=== PATIENT | female | born 1990 | race Caucasian/White ===

== ENCOUNTER 2025-07-05 19:06 | Inpatient (IN) | payer MEDICAID, SELFPAY ==
[2025-07-05 19:07] VITALS: BP 114/90; PULSE 103; RESP 16; TEMP 36.4; O2SAT 98; BMI 28.1
--- NOTE | 2025-07-05 19:23 | HP.PCM.HOS_ITS ---
HPI - General General Date of Admission: 07/05/25 Date of Service: 07/05/25 Chief Complaint: Acute Opiate Withdrawal HPI Narrative The patient is a 34 y/o F w/ PMHx: Opiate abuse (heroin, IV, approximately 1/2 g daily, last usage early a.m. on day of presentation), methamphetamine abuse (normally smoked, intermittent) with ongoing polysubstance abuse for approximately 10 years using intermittently, Anxiety and Depression, Tobacco use, Hx hepatitis C reportedly cleared status post antiviral therapy treatment who presents to the [facility] ED on 07/05/2025 w/ noted acute opiate withdrawal onset starting later in the afternoon worsening this evening following last dose earlier in the day with mild abdominal pain/cramping, generalized body aches, diaphoresis, fatigue, restless leg. Patient interested in attaining clean status. She notes she is never been admitted to an inpatient setting but has had treatment previously. Patient notes last IV drug usage is in the left antecubital fossa region. Workup in the ED included T97.6, heart 103, BP 114/90, respiratory rate 16, 98% room air, pending CBC, CMP, UDS, serum test, ethyl alcohol level upon request evaluation patient. [facility] Medical History Anxiety and depression History of hepatitis C Tobacco use Methamphetamine abuse Opiate abuse, continuous Home Medications ?Medication ?Instructions ?Recorded ?Last Taken ?Type NK 07/05/25 Unknown History Allergy/AdvReac Type Severity Reaction Status Date / Time No Known Allergies Allergy Verified 07/05/25 19:08 Family History (Updated 07/05/25 @ 19:[address] Kiki Meeks MD) Mother Cancer Father Alcoholic cirrhosis Alcohol abuse Surgical History S/P wisdom tooth extraction Social History (Updated 07/05/25 @ 19:[address] Kiki Meeks MD) household members: none housing: house Smoking Status: Current every day smoker tobacco type: cigarettes Smoking packs per day: 0.5 Smoking cigarettes per day: 10.0 alcohol intake: never substance use type: marijuana, heroin and other details: Heroin IV, approximate 1/2 g daily. Methamphetamine smoked intermittently. ROS ROS Narrative Admission Review of Systems: CONSTITUTIONAL: No weight loss, fever, + chills, weakness or fatigue. HEENT: Eyes: No visual loss, blurred vision, double vision or yellow sclerae. Ears, Nose, Throat: No hearing loss, sneezing, congestion, runny nose or sore throat. SKIN: No rash or itching, lesions, wounds except + very stage ecchymoses, abrasions, track campos. CARDIOVASCULAR: No chest pain, chest pressure or chest discomfort, palpitations, edema, orthopnea, syncopal events. RESPIRATORY: No shortness of breath, cough or sputum, wheezing, hemoptysis. GASTROINTESTINAL: + anorexia, nausea, mild abdominal cramping. No vomiting, marked diarrhea, melena, BRBPR. GENITOURINARY: No dysuria, frequency, urgency or retention. NEUROLOGICAL: + Significant restlessness/restless legs. No headache, dizziness, syncope, paralysis, ataxia, numbness or tingling in the extremities, focal weakness, change in bowel or bladder control, seizure. MUSCULOSKELETAL: + muscle, back pain, joint pain or stiffness. HEMATOLOGIC: No anemia, bleeding or bruising. LYMPHATICS: No enlarged nodes. No history of splenectomy. PSYCHIATRIC: + History of anxiety and depression. ENDOCRINOLOGIC: + Diaphoresis. No cold or heat intolerance. No polyuria or polydipsia. ALLERGIES: No history of asthma, hives, eczema or rhinitis. Vital Signs Vital Signs Vital Signs: 07/05/25 19:07 Temperature 97.6 F L Temperature Source Oral Pulse Rate 103 H Respiratory Rate 16 Blood Pressure 114/90 H Blood Pressure Mean 98 Pulse Ox 98 Oxygen Delivery Method Room Air Weight Weight: 169 lb 3.2 oz Body Mass Index (BMI) 28.1 Physical Exam Narrative Physical Examination: General: Awake, alert, oriented x 3 and cooperative, seated upright in the ED bed, restless, mildly diaphoretic. Skin: Normal color, normal turgor, no icterus, no cyanosis except occasional stage ecchymoses, abrasion, several track campos with last usage left antecubital fossa. HEENT: AT/NC, EOMI, PERRLA, moderately dry MM, no carotid bruits or JVD noted. Lungs: CTA bilaterally, moderate effort, mild decrease BL bases, no rales, ronchi or wheezing. Heart: Mildly tachycardic with regular rhythm; no gallop, rub audible. Abdomen: Soft, generalized discomfort with palpation but no rebound or guarding,, ND, hyperactive BS, no markedly appreciated HSM. Extremities: No cyanosis, clubbing, or edema, see skin. Neurological: Patient awake, alert, oriented as noted, cognitive function intact; pupils equally reactive to light and accommodation, cranial nerves grossly normal, moving all 4 extremities, no focal deficits, strength moderately globally creased. Psychiatric: Affect appears restless, fatigued, withdrawal symptoms evident, no acute evidence of depressive or anxiety feelings but does have underlying history. Assessment & Plan Assessment/Plan (1) Opiate withdrawal: PLAN: Plan The patient is a 34 y/o F w/ PMHx: Opiate abuse (heroin, IV, approximately 1/2 g daily, last usage early a.m. on day of presentation), methamphetamine abuse (normally smoked, intermittent) with ongoing polysubstance abuse for approximately 10 years using intermittently, Anxiety and Depression, Tobacco use, Hx hepatitis C reportedly cleared status post antiviral therapy treatment who presents to the [facility] ED on 07/05/2025 w/ noted acute opiate withdrawal. #1. Acute Opiate Withdrawal: Will admit to [facility] as long as testing is negative, routine labs including CBC, CMP, urine for drug screen, alcohol.patient is very resistant to Subutex taper and at this time we will hold off as she only wants Perin agents but she noted that if she changes mind she will notify staff and Subutex taper may be initiated at that time. Will have as needed tylenol, ibuprofen, bowel regimen, gabapentin, Bentyl, Vistaril, methocarbamol, clonidine, PRN nightly trazodone for insomnia, IV fluids, IV antiemetics. Once patient clinically improved and completion of taper nearing will plan consultation with case management for transition to next level of rehabilitation care. #2. Polysubstance Abuse, IVDA Hx, History of Hepatitis C, Chronic: Patient status post treatment for hepatitis C reportedly, ongoing unfortunate IV drug abuse, will obtain HIV, hepatitis panel, syphilis given ongoing intravenous usage amenable per patient. Encouraged early follow-up with ID. #3. Anxiety and depression: Per current list not on regimen, likely in large part contributing to her polysubstance abuse history, 180/case management consulted and will benefit from ongoing evaluation outpatient. #4. Tobacco Abuse: Encouraged cessation, inpatient consultation per RT, NR if desired. #5. DVT prophylaxis: Low risk type presentation, encourage ambulation. Charges/Coding Visit Charges Inpatient E&M: 42702 Init Hosp L3
[2025-07-05 19:28] LABS: Hematocrit 43.6 % (37-47); Hemoglobin 14.5 g/dL (12.0-15.0); Immature Granulocytes Count 0.030 X10^3/uL (0.0-0.0); Mean Corp Hgb Conc 33.3 g/dL (32-36); Mean Corpuscular Volume 87.9 fL (81-99); Mean Platelet Vol. 8.7 fl (6.2-12.0); NRBC Flagged by Analyzer 0 % (0-5); Platelet Count 394 K/mm3 (150-450); RBC Distribution Width CV 13.4 % (11.6-14.6); RBC Distribution Width SD 42.9 fl (35.1-43.9); Red Blood Count 4.96 M/mm3 (4.2-5.4); White Blood Count 9.4 K/mm3 (4.4-11.0)
[2025-07-05 19:29] VITALS: BP 114/90; PULSE 103; RESP 16; TEMP 36.4; O2SAT 98
--- NOTE | 2025-07-05 19:30 | EX.ED.SAOD ---
HPI History of Present Illness Chief Complaint: Substance Abuse Informant: patient Onset/Context/Timing Onset: - (Years of drug abuse.) Context: Gradual Onset Timing: Intermittent Current Severity: Mild Maximum Severity: Mild Associated Symptoms Associated Symptoms: Positive for vomiting* and diarrhea* Narrative Narrative: 34-year-old female history of IV heroin abuse and meth abuse. History of hep C. Anxiety and depression. States she has never had inpatient detox. She is requesting inpatient detox today. She has used IV heroin earlier today. Has had nausea, vomiting and diarrhea. Denies fever. Prior similar symptoms: Yes Recent Illness/[facility]: [facility] [place] Medical History Anxiety and depression History of hepatitis C Tobacco use Methamphetamine abuse Opiate abuse, continuous Home Medications ?Medication ?Instructions ?Recorded ?Last Taken ?Type NK 07/05/25 Unknown History Allergy/AdvReac Type Severity Reaction Status Date / Time No Known Allergies Allergy Verified 07/05/25 19:08 Family History Mother Cancer Father Alcoholic cirrhosis Alcohol abuse Surgical History S/P wisdom tooth extraction Social History household members: none housing: house Smoking Status: Current every day smoker tobacco type: cigarettes Smoking packs per day: 0.5 Smoking cigarettes per day: 10.0 alcohol intake: never substance use type: marijuana, heroin and other details: Heroin IV, approximate 1/2 g daily. Methamphetamine smoked intermittently. ROS ROS ED ROS Narrative Nausea, vomiting and diarrhea. Withdrawal symptoms. Constitutional Constitutional ED: Denies chills or fever(s) Eyes Eyes: Denies blurry vision ENT ENT ED: Denies ear pain Cardiovascular Cardiovascular: Denies chest pain Respiratory/Chest Respiratory/Chest: Denies cough or dyspnea Gastrointestinal Gastrointestinal: Reports diarrhea, nausea and vomiting; Denies abdominal pain, constipation or melena Genitourinary Genitourinary ED: Denies dysuria Musculoskeletal Musculoskeletal: Denies arthralgias or back pain Integumentary Denies abscess Neurologic Neurologic: Denies headache(s) Psychiatric Psychiatric: Reports anxiety Endocrine Endocrinology: Denies cold intolerance Hematologic/Lymphatic Hematologic/Lymphatic: Denies easy bleeding, easy bruising or lymphadenopathy Allergic/Immunologic Allergic/Immunologic ED: Denies mouth swelling, tongue swelling or urticaria EXAM Physical Exam Narrative Exam Narrative: Well-appearing 34-year-old female. Vital signs stable afebrile does not look septic toxic no acute distress. H EENT exam pupils round react light. Moist mutes membranes. Neck nontender no JVD. Back nontender. Lungs clear to auscultation bilaterally. Heart regular rhythm rate about 103 no murmur. Chest wall ribs nontender. Abdomen soft nontender. Moving all 4 extremities. Nontender no edema. No signs of infection. Track campos in both upper forearms. More so on the left. Old healed lacerations. No abscess. No cellulitis. Equal central radial pulses. Normal [place] strength bilaterally. Neurologically she is awake alert. Answer questions following commands. Const Vital Signs: 07/05/25 19:07 07/05/25 19:29 Temperature 97.6 F L 97.6 F L Temperature Source Oral Pulse Rate 103 H 103 H Respiratory Rate 16 16 Blood Pressure 114/90 H 114/90 H Blood Pressure Mean 98 98 Pulse Ox 98 98 Oxygen Delivery Method Room Air MDM MDM MDM Narrative Medical decision making narrative: 34-year-old female requesting inpatient detox for IV heroin abuse. I already spoke to the hospitalist who is evaluated in ER. She will be admitted. Awaiting detox labs. Patient is comfortable with the plan. History & Record Review Discussion w/independent historian: Patient Additional record(s) reviewed:: No prior records Lab Data Attestation: I reviewed the patient's lab results. Lab results narrative: CBC unremarkable. White count 9. H&H 14 and 43. Platelets 394. Chemistries show a gap of 12. BUN and creatinine of thirteen 0.6. Glucose 104. Liver enzymes unremarkable. Alcohol negative. Serum test negative. Labs: Laboratory Results - last 24 hr 07/05/25 19:18 WBC 9.4 RBC 4.96 Hgb 14.5 Hct 43.6 MCV 87.9 MCH 29.2 MCHC 33.3 RDW Std Deviation 42.9 RDW Coeff of Jess 13.4 Plt Count 394 MPV 8.7 Immature Gran % (Auto) 0.300 Neut % (Auto) 75.0 H Lymph % (Auto) 19.3 Dixon % (Auto) 5.1 Eos % (Auto) 0.2 Baso % (Auto) 0.1 Absolute Neuts (auto) 7.1 Absolute Lymphs (auto) 1.82 Nucleated RBC % 0 Sodium 140 Potassium 3.7 Chloride 103 Carbon Dioxide 25.2 Anion Gap 12 BUN 13 Creatinine 0.67 L Estim Creat Clear Calc 120.07 Est GFR (MDRD) Non-Af 117 BUN/Creatinine Ratio 18.9 Glucose 104 H Calcium 9.8 Total Bilirubin 0.56 AST 17 ALT 17 Alkaline Phosphatase 90 Total Protein 8.6 H Albumin 4.9 Globulin 3.7 Albumin/Globulin Ratio 1.3 Serum , Qual NEGATIVE Ethyl Alcohol < 10.1 Discharge Plan Dx/Rx/DC Orders Clinical Impression: Heroin abuse, Admitted to substance misuse detoxification center, History of hepatitis C Disposition Disposition: Acute Care [facility]
[2025-07-05 19:45] LABS: AST(SGOT) 17 U/L (<=31); Alanine Aminotransfer ALT/SGPT 17 U/L (<=34); Albumin, Serum 4.9 g/dL (3.5-5.0); Alcohol, Blood (Medical)-Serum < 10.1 mg/dL (<=10.0); Alkaline Phosphatase 90 U/L (35-104); Anion Gap 12 (5-15); BUN 13 mg/dL (4-19); BUN/Creat Ratio 18.9 RATIO (10-20); Calcium,Total 9.8 mg/dL (7.6-11.0); Carbon Dioxide 25.2 mmol/L (21.0-32.0); Chloride 103 mmol/L (98-108); Estimated Creatinine Clearance 120.07 ml/min (50-250); Globulin 3.7 g/dL (2.2-4.2); Glucose 104 mg/dL (70-99); Potassium 3.7 mmol/L (3.3-5.1)
[2025-07-05 19:47] LABS: Internal QC Validated? YES +Cl - CLEAR BKGD; Pregnancy, Serum, hCG Quali. NEGATIVE Negative; Record Kit Lot#, Serum Preg. 0000980607
--- OUTSIDE RECORDS SUMMARY | 2025-07-05 20:05 | XMS RPT_ITS | CCD ---
Author Organization [facility] Care Team Providers Care Stem Roller Or Crusher Operator Name Role Phone Unavailable Unavailable Unavailable JORGITO KULKARNI Unavailable Unavailable PAPROTA, YOGI Unavailable Unavailable PAPROTA, YOGI Unavailable Unavailable Ivanauskas, Saulius Unavailable Unavailable Ivanauskas, Saulius Unavailable Unavailable [facility] Unavailable U navailable Sandy Valderrama Attending Unavailable Sandy Valderrama Admitting Unavailable Charles Ac Attending Unavailable Charles Ac Admitting Unavailable AhJulian erazo Admitting Unavailable AhJulian erazo Attending Unavailable Yudith Bryant S Admitting Unavailable Yudith Bryant S Attending Unavailable Mariano Mas Attending Unavailable Mariano Mas Admitting Unavailable No, Physician Primary Care Provider UnavailCheryl Collins Primary Care Provider [phone] Unavailable Primary Care Provider UnavailSAUMYA Bolton Attending Unavailable Cheryl Patel CNP Primary Care Provider Luisa Arriaza CNP Unavailable Sandy Ferrera MD Unavailable Shavon Olsen MD Unavailable [phone] Ivelisse Salamanca MD Unavailable Francia ADAME, Shruthi Amy Unavailable Donna NÚÑEZ, Yogi Shay Unavailable Angle NEIGHBORHOOD CONSERVATION OFFICER, [place]a River Unavailable Shavon Olsen MD Unavailable Jadyn NÚÑEZ, Ivelisse Cannon Unavailable [phone] Francia CNM, Shruthi Amy Unavailable Yogi Thompson MD Unavailable [phone] Felipa NEIGHBORHOOD CONSERVATION OFFICER, Archana Lobato Primary Care Provider Rodrigo NÚÑEZ, Ivelisse Cannon Unavailable [phone] Colon NEIGHBORHOOD CONSERVATION OFFICER, Kareen Pickering Primary Care Provider [phone] COLON, KAREEN Raheel Primary Care Unavailable YOGI THOMPSON Attending Unavailable YOGI THOMPSON Attending Unavailable COLON, KAREEN Raheel Primary Care Unavailable [facility], Other Primary Care Provider IVELISSE ESPAÑA Attending Unavailable COLON, KAREEN J Primary Care Unavailable ARTUR PETTIT Attending Unavailable COLON, KAREEN J Primary Care Unavailable KELLI BEACH Attending Unavailable COLON, KAREEN J Primary Care Unavailable TRIPP BECKHAM Attending Unavailable YOGI THOMPSON Referring Unavailable COLON, KAREEN Raheel Primary Care Unavailable LORRI HAIDER Attending Unavail able COLON, KAREEN DUBON Primary Care Unavailable COLON, KAREEN JAGDISH Primary Care Unavailable SANDY VALDERRAMA JR. Attending Unav ailable Allergies Allergy Classification Reported Allergen(s) Allergy Type Date of Onset Reaction(s) Facility Glycopeptides (antibiotic) (1 source) Vancomycin Drug Allergy 03-13-2021 [facility] (14 sources) Vancomycin; Translations: [VANCOMYCIN] Drug Allergy 12-16-2017 Hives, Itching [facility] Medications Current Medications Medication Drug Class(es) Dates Sig (Normalized) Sig (Original) acetylcysteine 600 mg oral capsule (1 source) Antidote, Mucolytic, Antidote for Acetaminophen Overdose Start: 04-30-2021 End: 05-30-2021 take 1 capsule by mouth twice daily N-acetylcysteine (NAC) 600 mg capsule Take 1 (one) capsule (600 mg total) by mouth 2 (two) times a day . 60 capsule 0 04/30/2021 05/30/2021 Active baclofen 10 mg oral tablet (3 sources) gamma-Aminobutyric Acid-ergic Agonist Start: 09-25-2020 baclofen (LIORESAL) 10 MG tablet Take 20 mg TID X 7 doses then 10 mg TID X 6 doses . 20 tablet 0 09/25/2020 Active Start: 09-25-2020 baclofen (LACY ESAL) 10 MG tablet baclofen (LIORESAL) 10 MG tablet Take 20 mg TID X 7 doses then 10 mg TID X 6 doses . 20 tablet 0 09/25/2020 Active 0 09/25/2020 Active buprenorphine 8 mg / naloxone 2 mg sublingual tablet (6 sources) Partial Opioid Agonist, Opioid Antagonist Start: 09-27-2023 End: 10-19-2023 buprenorphine-nalOXone (SUBOXONE) 8-2 mg tablet Indications: Opioid dependence in remission (HCC) Place 1 (one) tablet under the tongue daily for 6 days . 6 tablet 0 10/13/2023 10/19/2023 Active Start: 09-15-2023 End: 09-22-2023 buprenorphine-nalOXone (SUBO XONE) 8-2 mg tablet Indications: Opioid dependence in remission (HCC) Place 1 (one) tablet under the tongue daily for 7 days . 7 tablet 0 09/15/2023 09/22/2023 Active Start: 06-19-2023 End: 09-26-2023 buprenorphine-nalOXone (SUBO XONE) 8-2 mg tablet TAKE ONE TABLET UNDER THE TONGUE TWICE DAILY 0 06/19/2023 09/26/2023 Discontinued (Reorder (Suppress CancelRx Message to Pharmacy)) busPIRone hydrochloride 30 m g oral tablet (11 sources) Start: 03-24-2022 busPIRone (BUS PAR) 30 MG tablet Start: 03-10-2021 End: 04-30-2021 busPIRone (BUSPAR) 7.5 MG ta blet Start: 03-09-2021 End: 05-30-2021 take 1 tablet by mouth three times daily busPIRone (BUSPAR) 5 MG tablet Take 1 (one) tablet (5 mg total) by mouth 3 (three) times a day . 90 tablet 0 04/30/2021 05/30/2021 Active End: 04-30-2021 take 1 tablet by mouth twice daily busPIRone 10 MG tablet Take 1 tablet by mouth 2 times daily. Active cariprazine 1.5 mg oral capsule (3 sources) Atypical Antipsychotic Start: 08-29-2022 Vraylar 1.5 mg capsule cetirizine hydrochloride 10 mg oral tablet (2 sources) Histamine-1 Receptor Antagonist Start: 11-18-2021 End: 11-18-2022 take 1 tablet by mouth once daily cetirizine (ZYRTEC) 10 MG tablet Indications: Cough Take 1 (one) tablet (10 mg total) by mouth daily . 30 tablet 2 11/18/2021 11/18/2022 Active cloNIDine hydrochloride 0.1 mg oral tablet (3 sources) Central alpha-2 Adrenergic Agonist Start: 09-25-2020 take 1 tablet by mouth twice daily cloNIDine HCL (CATAPRES) 0.1 MG tablet Take 1 (one) tablet (0.1 mg total) by mouth 2 (two) times a day for 10 days . 20 tablet 0 09/25/2020 Active Start: 09-25-2020 take 1 tablet by gaudencio th every twelve hours cloNIDine HCL (CATAPRES) 0.1 MG tablet Take 1 Unspecified by mouth every 12 (twelve) hours . 0 09/25/2020 Active famotidine 40 mg oral tablet (1 source) Histamine-2 Receptor Antagonist Start: 03-05-2021 take 1 tablet by mouth once daily famotidine (PEPCID) 40 MG tablet Indications: Opiate abuse, continuous (HCC) , Methamphetamine abuse (HCC) Take 1 (one) tablet (40 mg total) by mouth daily . 30 tablet 0 03/05/2021 Active ferrous sulfate 325 mg oral tablet (3 sources) Start: 10-25-2022 take 1 tablet by mouth three times daily at mealtime ferrous sulfate 325 (65 FE) MG tablet Indications: Iron deficiency Take 1 (one) tablet (325 mg total) by mouth 3 (three) times a day with meals . 270 tablet 0 10/25/2022 Active fluticasone propionate 0.05 mg/actuat metered dose nasal spray (2 sources) Corticosteroid Start: 08-10-2021 take 2 spray(s) nasal route once daily fluticasone propionate (FLONASE) 50 mcg/actuation nasal spray Indications: Sinusitis, unspecified chronicity, unspecified location Instill 2 (two) sprays into each nostril daily . 16 g 0 08/10/2021 Active hydrocortisone 10 mg/ml / neomycin 3.5 mg/ml / polymyxin b [id number] unt/ml otic solution (1 source) Aminoglycoside Antibacterial, Polymyxin-class Antibacterial, Corticosteroid Start: 06-19-2020 End: 06-26-2020 neomycin-polymyxin- hydrocortisone (CORTISPORIN) otic solution Administer 3 (three) drops into the left ear 4 (four) times a day for 28 doses . 10 mL 0 06/19/2020 06/26/2020 Active hydrOXYzine pamoate 50 mg oral capsule (1 source) Antihistamine take 1 capsule by mouth twice daily as needed hydrOXYzine (VISTARIL) 50 MG capsule Take 50 mg by mouth 2 (two) times a day as needed for itching . 0 Active ibuprofen 800 mg oral tablet (2 sources) Nonsteroidal Anti-inflammatory Drug Start: 12-15-2021 End: 12-15-2022 take 1 tablet by mouth every six hours as needed for pain ibuprofen (ADVIL,MOTRIN) 800 MG tablet Indications: Acute bilateral low back pain without sciatica Take 1 (one) tablet (800 mg total) by mouth every 6 (six) hours as needed for pain . 90 tablet 0 12/15/2021 12/15/2022 Active ketorolac tromethamine 10 mg oral tablet (4 sources) Nonsteroidal Anti-inflammatory Drug, Cyclooxygenase Inhibitor Start: 09-02-2024 End: 09-02-2024 30 mg, Intravenous, ONCE, 1 dose, On Mon09/02/24 at 0030 Start: 12-18-2017 End: 06-19-2020 take 1 tablet by mouth every six hours as needed ketorolac 10 MG Tab Take 1 tablet by mouth every 6 hours as needed for Moderate Pain. Max of 40mg/day. Max of 5 days. 20 tablet 12/18/2017 Active lamoTRIgine 200 mg oral tablet (5 sources) Mood Stabilizer, Anti-epileptic Agent Start: 05-17-2022 lamoTRIgine (LAMICTAL) 200 MG tablet melatonin 5 mg oral tablet (6 sources) Start: 10-10-2022 melatonin 5 mg Tab Start: 04-30-2021 End: 05-30-2021 take 1 tablet by mouth once daily melatonin 5 mg Tab Take 1 (one) tablet (5 mg total) by mouth nightly . 30 tablet 0 05/28/2021 Active metoclopramide 5 mg oral tablet (4 sources) Dopamine-2 Receptor Antagonist Start: 11-05-2020 take 1 tablet by mouth three times daily as needed for nausea metoclopramide (REGLAN) 5 MG tablet Take 1 (one) tablet (5 mg total) by mouth 3 (three) times a day as needed (Nausea) . 15 tablet 0 11/05/2020 Active Start: 11-05-2020 take 1 tablet by gaudencio th every eight hours as needed metoclopramide (REGLAN) 5 MG tablet Take 1 Unspecified by mouth every 8 (eight) hours as needed . 0 11/05/2020 Active Start: 11-05-2020 metoclopramide (REGLAN) injection 5 mg Multiple Vitamins-Minerals (THERAPEUTIC MULTIVITAMIN-MINERALS) tablet (1 source) take 1 tablet by mouth once daily Multiple Vitamins-Minerals (THERAPEUTIC MULTIVITAMIN-MINERALS) tablet Take 1 tablet by mouth daily 0 Active multivitamin (THERAGRAN) per tablet (5 sources) Start: 10-20-19 take 1 tablet by mouth once daily multivitamin (THERAGRAN) per tablet Indications: Wellness examination Take 1 (one) tablet by mouth daily . 90 tablet 3 10/19/2022 Active take 1 tablet by mouth once true y multivitamin (THERAGRAN) per tablet Take 1 (one) tablet by mouth daily . 0 Active naltrexone 380 mg injection (8 sources) Opioid Antagonist Start: 06-15-2022 naltrexone m icrospheres (VivitroL) Indications: Opioid dependence in remission (HCC) Inject 380 (three hundred eighty) mg into the shoulder, thigh, or buttocks every 30 (thirty) days . 1 each 06/15/2022 Active Start: 03-31-2022 End: 03-31-2023 take 0.5 tablet by mouth once daily naltrexone (DEPADE, REVIA) 50 mg tablet Indications: Opioid dependence in remission (HCC) Take 0.5 (one-half) tablet (25 mg total) by mouth daily . 15 tablet 0 03/31/2022 03/31/2023 Active Start: 03-08-2021 take 0.5 tablet by m outh twice daily as needed naltrexone (DEPADE, REVIA) 50 mg tablet Indications: Opiate abuse, continuous (HCC) , Methamphetamine abuse (HCC) Take 0.5 (one-half) tablet (25 mg total) by mouth 2 (two) times a day as needed (cravings) IF LFTS OK AND HOLD WHEN START IM . 15 tablet 1 03/08/2021 Active Nicotine (3 sources) Cholinergic Nicotinic Agonist Start: 10-19-2022 apply 1 dose transdermal route once daily nicotine 21-14-7 mg/24 hr PTDS Indications: Encounter for tobacco use cessation counseling Place 1 patch on the skin daily . 30 patch 0 10/19/2022 Active nitrofurantoin, macrocrystals 25 mg / nitrofurantoin, monohydrate 75 mg oral capsule (1 source) Nitrofuran Antibacterial Start: 11-05-2020 End: 11-12-2020 take 1 capsule by mouth twice daily nitrofurantoin, macrocrystal-monoh ydrate, (MACROBID) 100 MG capsule Take 1 (one) capsule (100 mg total) by mouth 2 (two) times a day for 7 days . 14 capsule 0 11/05/2020 11/12/2020 Active norethindrone 0.35 mg oral tablet (5 sources) Start: 06-15-2022 End: 06-15-2023 take 1 tablet by mouth once daily norethindrone (MICRONOR) 0.35 mg tablet Indications: Encounter for counseling regarding contraception Take 1 (one) tablet (0.35 mg total) by mouth daily . 30 tablet 11 09/02/2022 Active OLANZapine 10 mg oral tablet (4 sources) Atypical Antipsychotic Start: 09-11-2023 OLANZapine 10 MG tablet 09/11/2023 Active ondansetron 4 mg oral tablet (5 sources) Serotonin-3 Receptor Antagonist Start: 06-18-2022 take 1 tablet by mouth every eight hours as needed for nausea ondansetron (ZOFRAN) 4 MG tablet Take 1 (one) tablet (4 mg total) by mouth every 8 (eight) hours as needed for nausea . 20 tablet 0 06/18/2022 Active pnv [id number] ium-D3 35 mg (d)/5 mg 12 mcg-600 unit TbSQ (4 sources) Start: 11-05-2020 pnv [id number] ium-D3 35 mg (d)/5 mg 12 mcg-600 unit TbSQ Take 30 tablets by mouth daily . 30 tablet 0 11/05/2020 Active Start: 11-05-2020 End: 12-05-2020 pnv [id number]-U8 35 mg (d)/5 mg 12 mcg-600 unit TbSQ Take 30 tablets by mouth daily . 30 tablet 0 11/05/2020 12/05/2020 Active vitamin with Ca-Iron-FA 27-1 mg Tab (2 sources) take 1 tablet by mouth once daily vitamin with Ca-Iron-FA 27-1 mg Tab Indications: Take 1 tablet by mouth daily Reasons: . 0 Active propranolol hydrochloride 10 mg oral tablet (3 sources) beta-Adrenergic Asif Start: 3 propranoloL (INDERAL) 10 MG tablet sertraline 100 mg oral tablet (3 sources) Serotonin Reuptake Inhibitor Start: 2 sertraline (ZOLOFT) 100 MG tablet Start: 04-30-2021 End: 05-30-2021 take 1 tablet by mouth once daily sertraline (ZOLOFT) 25 MG tablet Take 1 (one) tablet (25 mg total) by mouth daily . 30 tablet 0 04/30/2021 05/30/2021 Active therapeutic multivitamin (THERAGRAN) tablet (4 sources) Start: 04-30-2021 take 1 tablet by mouth once daily therapeutic multivitamin (THERAGRAN) tablet Take 1 (one) tablet by mouth daily . 30 tablet 0 04/30/2021 Active Start: 04-30-2021 End: 05-30-2021 take 1 tablet by mouth once daily therapeutic multivitamin (THERAGRAN) tablet Take 1 (one) tablet by mouth daily . 30 tablet 0 04/30/2021 05/30/2021 Active Start: 03-05-2021 End: 03-05-2022 take 1 tablet by mouth once daily therapeutic multivitamin (THERAGRAN) tablet Indications: Opiate abuse, continuous (HCC) , Methamphetamine abuse (HCC) Take 1 (one) tablet by mouth daily . 30 tablet 11 03/05/2021 03/05/2022 Active topiramate 25 mg oral tablet (3 sources) Start: 09-25-2020 take 1 tablet by mouth twice daily topiramate (TOPAMAX) 25 MG tablet Take 1 (one) tablet (25 mg total) by mouth 2 (two) times a day for 15 days . 30 tablet 0 09/25/2020 Active Start: 09-25-2020 take 1 tablet by gaudencio th every twelve hours topiramate (TOPAMAX) 25 MG tablet Take 1 Unspecified by mouth every 12 (twelve) hours . 0 09/25/2020 Active traZODone hydrochloride 100 mg oral tablet (6 sources) Serotonin Reuptake Inhibitor Start: 10-10-2022 traZODone (DESYREL) 100 MG tablet Start: 09-25-2020 take 1 tablet by gaudencio th once daily as needed for sleep traZODone (DESYREL) 50 MG tablet Take 1 (one) tablet (50 mg total) by mouth nightly as needed for sleep . 15 tablet 1 09/25/2020 Active Completed/Discontinued Medications Medication Drug Class(es) Dates Sig (Normalized) Sig (Original) azithromycin 250 mg oral tablet (2 sources) Macrolide Antimicrobial Start: 06-19-2020 End: 07-17-2020 azithromycin (ZITHROMAX) 250 MG tablet Take 2 by mouth today and then 1 by mouth each of the next 4 days . 6 tablet 0 06/19/2020 07/17/2020 Discontinued (Error) benzoyl peroxide 0.05 mg/mg / erythromycin 0.03 mg/mg topical gel (1 source) Macrolide, Macrolide Antimicrobial Start: 01-31-2018 End: 06-19-2020 benzoyl peroxide-erythromyc in (BENZAMYCIN) gel Apply topically 2 (two) times a day. 23.3 g 2 01/31/2018 06/19/2020 Discontinued (Error) 1.5 ml buprenorphine 200 mg/ml prefilled syringe (5 sources) Partial Opioid Agonist Start: 10-13-2023 End: 10-13-2023 buprenorphine extended release (SUBLOCADE) subcutaneous injection 300 mg Start: 10-13-2023 End: 10-13-2023 buprenorphine extended relea se (SUBLOCADE) subcutaneous injection 300 mg Start: 09-15-2023 End: 10-14-2023 buprenorphine extended relea se (SUBLOCADE) 300 mg/1.5 mL subcutaneous injection Indications: Opioid dependence in remission (HCC) Inject 1.5 mL (300 mg total) under the skin every 28 days for 2 doses . 1.5 mL 1 09/15/2023 10/14/2023 Active calcium chloride 0.0014 meq/ml / potassium chloride 0.004 meq/ml / sodium chloride 0.103 meq/ml / sodium lactate 0.028 meq/ml injectable solution (1 source) Start: 11-05-2020 End: 11-05-2020 lactated ringers bolus 1,000 mL cephalexin 500 mg oral capsule (1 source) Cephalosporin Antibacterial Start: 12-19-2017 End: 06-19-2020 take 1 capsule by mouth every twelve hours cephALEXin (KEFLEX) 500 MG capsule TAKE 1 CAPSULE BY MOUTH EVERY 12 hours for 5 (FIVE) days 0 12/19/2017 06/19/2020 Discontinued (Error) diphenhydrAMINE (1 source) Histamine-1 Receptor Antagonist Start: 11-05-2020 End: 11-05-2020 diphenhydrAMINE (BENADRYL) injection 25 mg iohexol (OMNIPAQUE) 350 MG/ML injection 75 mL (1 source) Start: 09-02-2024 End: 09-02-2024 75 mL, Intravenous, ONCE, 1 dose, On Mon09/02/24 at 0330, Extravasation Risk, Radiology Procedure lidocaine hydrochloride 0.02 mg/mg topical gel (1 source) Antiarrhythmic, Amide Local Anesthetic Start: 01-31-2018 End: 06-19-2020 lidocaine (XYLOCAINE) 2 % jelly Apply topically 3 (three) times a day as needed To left face for post herpetic neuralgia. 30 mL 0 01/31/2018 06/19/2020 Discontinued (Error) saccharomyces boulardii 250 mg oral capsule (1 source) Start: 12-19-2017 End: 06-19-2020 take 1 capsule by mouth once daily FLORASTOR 250 mg capsule Take 250 mg by mouth daily TAKE DAILY FOR 14 DAYS. 0 12/19/2017 06/19/2020 Discontinued (Error) 250 ml sodium chloride 9 mg/ml injection (2 sources) Start: 09-02-2024 End: 09-02-2024 75 mL, Intravenous, ONCE, 1 dose, On Mon09/02/24 at 0330, Radiology Procedure valACYclovir 1000 mg oral tablet (1 source) Herpesvirus Nucleoside Analog DNA Polymerase Inhibitor, Herpes Simplex Virus Nucleoside Analog DNA Polymerase Inhibitor, Herpes Zoster Virus Nucleoside Analog DNA Polymerase Inhibitor Start: 12-19-2017 End: 06-19-2020 take 1 tablet by mouth three times daily valACYclovir (VALTREX) 1000 MG tablet TAKE 1 TABLET BY MOUTH THREE TIMES DAILY for 7 (SEVEN) days 0 12/19/2017 06/19/2020 Discontinued (Error) Problems Active Problems Problem Classification Problem Date Documented Da te Episodic/Chronic Acute and chronic tonsillitis (2 sources) Other chronic diseases of tonsils and adenoids; Translations: [Other chronic diseases of tonsils and adenoids] Onset: 09-16-2024 Chronic Administrative/social admission (9 sources) Drug therapy finding; Translations: [Other specified counseling] Onset: 10-13-2023 09-15-2023 Episodic Anxiety disorders (7 sources) Anxiety; Translations: [Other specified anxiety disorders] Onset: 05-28-2021 Chronic Epilepsy; convulsions (1 source) Seizure related finding; Translations: [Unspecified convulsions] Episodic Fluid and electrolyte disorders (2 sources) Dehydration; Translations: [Dehydration] Onset: 12-01-2024 Episodic Hepatitis (2 sources) Chronic hepatitis C; Translations: [Chronic viral hepatitis C] Chronic Mood disorders (2 sources) Mood disorders; Translations: [Depression, unspecified] Onset: 12-27-2023 Other ear and sense organ disorders (1 source) Otalgia of left ear; Translations: [Left ear pain] Other ear and sense organ disorders (1 source) Acute otitis externa of left ear; Translations: [Acute otitis externa of left ear, unspecified type] Other lower respiratory disease (1 source) Cough; Translations: [Cough] Episodic Other non-traumatic joint disorders (2 sources) Effusion, right ankle; Translations: [Effusion, right ankle] Onset: 12-01-2024 Episodic Other non-traumatic joint disorders (2 sources) Effusion, left ankle; Translations: [Effusion, left ankle] Onset: 12-01-2024 Episodic Other nutritional; endocrine; and metabolic disorders (2 sources) Hypercalcemia; Translations: [Hypercalcemia] Onset: 12-01-2024 Chronic Other upper respiratory infections (2 sources) Acute pharyngitis, unspecified; Translations: [Acute pharyngitis, unspecified] Onset: 09-16-2024 Episodic Otitis media and related conditions (1 source) Otitis media of left ear; Translations: [Left otitis media, unspecified otitis media type] Residual codes; unclassified (1 source) Gestation period, 24 weeks; Translations: [24 weeks gestation of ] Episodic Substance-related disorders (20 sources) Substance misuse behavior; Translations: [History of intravenous drug abuse] Onset: 12-17-2017 Chronic Substance-related disorders (15 sources) Accidental heroin overdose; Translations: [Substance abuse] Onset: 08-29-2022 09-15-2023 Episodic Unclassified (2 sources) Other specified disorders of teeth and supporting structures; Translations: [Other specified disorders of teeth and supporting structures] Onset: 12-13-2017 Unclassified (3 sources) Patient encounter status; Translations: [Screening for substance abuse] Onset: 01-31-2018 01-31-2018 Viral infection (14 sources) Postherpetic neuralgia; Translations: [Other postherpetic nervous system involvement] Onset: 12-17-2017 01-31-2018 Episodic Viral infection (2 sources) COVID-19; Translations: [COVID-19] Onset: 09-01-2024 Past or Other Problems Problem Classification Problem Date Documented Da te Episodic/Chronic Genitourinary symptoms and ill-defined conditions (4 sources) Bacteriuria; Translations: [Bacteriuria] Onset: 08-29-2022 08-29-2022 Episodic Hepatitis (3 sources) Viral hepatitis C; Translations: [Unspecified viral hepatitis C without hepatic coma] Onset: 08-29-2022 08-29-2022 Episodic Nausea and vomiting (4 sources) Nausea and vomiting; Translations: [Nausea with vomiting, unspecified] Onset: 08-29-2022 08-29-2022 Episodic Other ear and sense organ disorders (3 sources) Acute otitis externa of left ear; Translations: [Unspecified acute noninfective otitis externa, left ear] Onset: 08-29-2022 08-29-2022 Episodic Other nutritional; endocrine; and metabolic disorders (5 sources) Overweight in adulthood with body mass index of 25 or more but less than 30; Translations: [Overweight] Onset: 06-30-2021 06-30-2021 Episodic Other and delivery including normal (5 sources) ; Translations: [Encounter for supervision of normal , unspecified, unspecified trimester] Onset: 05-28-2021 05-28-2021 Episodic Other screening for suspected conditions (not mental disorders or infectious disease) (11 sources) Patient encounter status; Translations: [Encounter for screening for other disorder] Onset: 01-31-2018 01-31-2018 Episodic Otitis media and related conditions (3 sources) Otitis media of left ear; Translations: [Otitis media, unspecified, left ear] Onset: 08-29-2022 08-29-2022 Episodic Residual codes; unclassified (5 sources) Gestation period, 38 weeks; Translations: [38 weeks gestation of ] Onset: 06-12-2021 Resolved: 06-30-2021 06-30-2021 Episodic Skin and subcutaneous tissue infections (6 sources) Cellulitis of face; Translations: [Cellulitis of face] Onset: 12-16-2017 08-29-2022 Episodic Suicide and intentional self-inflicted injury (2 sources) Suicidal ideations; Translations: [Suicidal ideations] Onset: 10-23-2023 Episodic Urinary tract infections (2 sources) Urinary tract infection, site not specified; Translations: [Urinary tract infection, site not specified] Onset: 10-23-2023 Episodic Results Test Name Value Interpretation Reference Range Facility ALCOHOL, MEDICALon ALCOHOL MEDICAL 28.5 mg/dL High <10.0 [facility] Comment on above: Performed By: [id number] #### [facility] [address] [place] [id number] Garrett Harirs M.D. [id number] BASIC METABOLIC PANELon 01-05 Anion gap [Moles/Vol] 25 mmol/L High - [facility] Comment on above: Order Comment: [facility] has implemented the eGFR calculation approach that does not have a coefficient for race that conforms to the NKF-ASN Task Force Recommendations. Performed By: #### [id number] #### [facility] [address], [place] [address] Garrett Harris M.D. [id number] Calcium [Mass/Vol] 9.1 mg/dL Normal 8.4-10.2 [facility] Comment on above: Order Comment: [facility] has implemented the eGFR calculation approach that does not have a coefficient for race that conforms to the NKF-ASN Task Force Recommendations. Performed By: #### [id number] #### [facility] [address] [place] [id number] Garrett Harris M.D. [id number] Chloride [Moles/Vol] 99 mmol/L Normal 98-108 [facility] Comment on above: Order Comment: [facility] has implemented the eGFR calculation approach that does not have a coefficient for race that conforms to the NKF-ASN Task Force Recommendations. Performed By: #### 4 [id number] #### [facility] [address] [place] [address] Garrett Harris M.D. [id number] Creatinine [Mass/Vol] 0.58 mg/dL Normal 0.40-1.10 [facility] Comment on above: Order Comment: [facility] has implemented the eGFR calculation approach that does not have a coefficient for race that conforms to the NKF-ASN Task Force Recommendations. Performed By: #### 4 [id number] #### [facility] [address] [place] [address] Garrett Harris M.D. [id number] EGFR 121 mL/min/1.73 m2 Normal >=60 [facility] Comment on above: Order Comment: [facility] has implemented the eGFR calculation approach that does not have a coefficient for race that conforms to the NKF-ASN Task Force Recommendations. Result Comment: Charline mated GFR was calculated using the 2020 CKD-EPI creatinine equation. Performed By: #### 4 [id number] #### [facility] [address] [place] [address] Garrett Harris M.D. [id number] Glucose [Mass/Vol] 77 mg/dL Normal 65-99 [facility] Comment on above: Order Comment: [facility] has implemented the eGFR calculation approach that does not have a coefficient for race that conforms to the NKF-ASN Task Force Recommendations. Performed By: #### 4 [id number] #### [facility] [address] [place] [address] Garrett Harris M.D. [id number] HCO3 (Bld) [Moles/Vol] 21 mmol/L Normal 21-32 [facility] Comment on above: Order Comment: [facility] has implemented the eGFR calculation approach that does not have a coefficient for race that conforms to the NKF-ASN Task Force Recommendations. Performed By: #### 4 [id number] #### SH [place] [address] Garrett Harris M.D. [id number] Potassium [Moles/Vol] 3.7 mmol/L Normal 3.5-5.1 [facility] Comment on above: Order Comment: [facility] has implemented the eGFR calculation approach that does not have a coefficient for race that conforms to the NKF-ASN Task Force Recommendations. Performed By: #### 4 [id number] #### SH [place] [address] Garrett Harris M.D. [id number] Sodium [Moles/Vol] 141 mmol/L Normal 135-145 [facility] Comment on above: Order Comment: [facility] has implemented the eGFR calculation approach that does not have a coefficient for race that conforms to the NKF-ASN Task Force Recommendations. Performed By: #### 4 [id number] #### SH [place] [address] Garrett Harris M.D. [id number] Urea nitrogen [Mass/Vol] 8 mg/dL Normal 8-25 [facility] Comment on above: Order Comment: [facility] has implemented the eGFR calculation approach that does not have a coefficient for race that conforms to the NKF-ASN Task Force Recommendations. Performed By: #### 4 [id number] #### SH [place] [address] Garrett Harris M.D. [id number] Urea nitrogen/Creatinine [Mass ratio] 13.8 mg/mg Normal 10.0-20.0 [facility] Comment on above: Order Comment: [facility] has implemented the eGFR calculation approach that does not have a coefficient for race that conforms to the NKF-ASN Task Force Recommendations. Performed By: #### 4 [id number] #### [facility] [address] [place] [address] Garrett Harris M.D. [id number] CBC WITH AUTO DIFFERENTIALon 01-17-2025 BASOPHILS ABSOLUTE COUNT 0.01 K/mcL Normal 0.00-0.30 [facility] Comment on above: Performed By: #### L [id number] #### [facility] [address] [place] [address] Garrett Harris M.D. [id number] Basophils/100 WBC (Bld) 0.2 % Normal [facility] Comment on above: Performed By: #### L [id number] #### [facility] [address] [place] [address] Garrett Harris M.D. [id number] Eosinophils (Bld) [#/Vol] 0.08 10*3/uL Normal 0.00-0.50 [facility] Comment on above: Performed By: #### L [id number] #### [facility] [address] [place] [address] Garrett Harris M.D. [id number] Eosinophils/100 WBC (Bld) 1.5 % Normal [facility] Comment on above: Performed By: #### L [id number] #### [facility] [address] [place] [address] Garrett Harris M.D. [id number] Erythrocyte distribution width (RBC) [Ratio] 11.6 % Normal 11.6-14.8 [facility] Comment on above: Performed By: #### L [id number] #### [facility] [address] [place] [address] Garrett Harris M.D. [id number] Hematocrit (Bld) [Volume fraction] 35.9 % Low 36.0-46.0 [facility] Comment on above: Performed By: #### L [id number] #### [facility] [address] [place] [address] Garrett Harris M.D. [id number] Hemoglobin (Bld) [Mass/Vol] 12.6 g/dL Normal 12.0-16.0 [facility] Comment on above: Performed By: #### L [id number] #### [facility] [address] [place] [address] Garrett Harris M.D. [id number] IG ABSOLUTE 0.02 K/mcL Normal 0.00-0.30 [facility] Comment on above: Performed By: #### L [id number] #### LAB [address] [place] [address] Garrett Harris M.D. [id number] IG PERCENT 0.40 % Normal [facility] Comment on above: Result Comment: The IG parameter is the percentage of metamyelocytes, myelocytes and promyelocytes. An immature granulocyte count (IG) of 1% or more suggests the possibility of infection, an IG count of 3% is very likely related to an infection. Performed By: #### L [id number] #### [facility] [address] [place] [address] Garrett Harris M.D. [id number] Lymphocytes (Bld) [#/Vol] 1.80 10*3/uL Normal 0.90-4.00 [facility] Comment on above: Performed By: #### L [id number] #### [facility] [address] [place] [address] Garrett Harris M.D. [id number] Lymphocytes/100 WBC (Bld) 32.9 % Normal [facility] Comment on above: Performed By: #### L [id number] #### LAB [address] [place] [address] Garrett Harris M.D. [id number] MCH (RBC) [Entitic mass] 31.3 pg Normal 26.0-34.0 [facility] Comment on above: Performed By: #### L [id number] #### [facility] [address] [place] [address] Garrett Harris M.D. [id number] MCV (RBC) [Entitic vol] 89.3 fL Normal 80.0-100.0 [facility] Comment on above: Performed By: #### L [id number] #### [facility] [address] [place] [address] Garrett Harris M.D. [id number] MEAN CORPUSCULAR HEMOGLOBIN CONC 35.1 g/dL Normal 31.0-37.0 [facility] Comment on above: Performed By: #### L [id number] #### [facility] [address] [place] [address] Garrett Harris M.D. [id number] Monocytes (Bld) [#/Vol] 0.49 10*3/uL Normal 0.30-0.90 [facility] Comment on above: Performed By: #### L [id number] #### [facility] [address] [place] [address] Garrett Harris M.D. [id number] Monocytes/100 WBC (Bld) 9.0 % Normal [facility] Comment on above: Performed By: #### L [id number] #### [facility] [address] [place] [address] Garrett Harris M.D. [id number] NEUTROPHILS ABSOLUTE COUNT 3.07 K/mcL Normal 1.70-7.00 [facility] Comment on above: Performed By: #### L [id number] #### [facility] [address] [place] [address] Garrett Harris M.D. [id number] Neutrophils/100 WBC (Bld) 56.0 % Normal [facility] Comment on above: Performed By: #### L [id number] #### [facility] [address] [place] [address] Garrett Harris M.D. [id number] Platelet mean volume (Bld) [Entitic vol] 9.3 fL Low 9.4-12.4 [facility] Comment on above: Performed By: #### L [id number] #### [facility] [address] [place], [place] [address] Garrett Harris M.D. [id number] Platelets (Bld) [#/Vol] 232 10*3/uL Normal 150-400 [facility] Comment on above: Performed By: #### L [id number] #### [facility] [address] [place] [address] Garrett Harris M.D. [id number] RBC (Bld) [#/Vol] 4.02 10*6/uL Normal 4.00-5.20 [facility] Comment on above: Performed By: #### L [id number] #### [facility] [address] [place] [address] Garrett Harris M.D. [id number] WBC (Bld) [#/Vol] 5.47 10*3/uL Normal 4.50-11.00 [facility] Comment on above: Performed By: #### L [id number] #### [facility] [address] [place] [address] Garrett Harris M.D. [id number] DRUGS OF ABUSE SCREEN, URINE on 01-17-2025 AMPHETAMINE SCREEN, URINE Positive Abnormal None Detected [facility] Comment on above: Order Comment: Scree n results should be used for treatment purposes only. Specimen will be kept for 2 weeks, if the sample is adequate. Confirmation testing can be initiated by calling the lab within 2 weeks. Result Comment: Urin e Amphetamine Cutoff: < 1000 ng/mL = None Detected Performed By: #### 4 [id number] #### [facility] [address] [place] [address] Garrett Harris M.D. [id number] BARBITURATE SCREEN URINE Not detected Normal None Detected [facility] Comment on above: Order Comment: Scree n results should be used for treatment purposes only. Specimen will be kept for 2 weeks, if the sample is adequate. Confirmation testing can be initiated by calling the lab within 2 weeks. Result Comment: Urin e Barbiturates Cutoff: < 200 ng/mL = None Detected Performed By: #### 4 [id number] #### [facility] [address] [place], [place] [address] Garrett Harris M.D. [id number] BENZODIAZEPINE SCREEN, URINE Not detected Normal None Detected [facility] Comment on above: Order Comment: Scree n results should be used for treatment purposes only. Specimen will be kept for 2 weeks, if the sample is adequate. Confirmation testing can be initiated by calling the lab within 2 weeks. Result Comment: Urin e Benzodiazepine Cutoff: < 200 ng/mL = None Detected Performed By: #### 4 [id number] #### [facility] [address] [place] [address] Garrett Harris M.D. [id number] BUPRENORPHINE, URINE Not detected Normal None Detected [facility] Comment on above: Order Comment: Scree n results should be used for treatment purposes only. Specimen will be kept for 2 weeks, if the sample is adequate. Confirmation testing can be initiated by calling the lab within 2 weeks. Result Comment: Urin e Buprenorphine Cutoff: < 5 ng/mL = None Detected Performed By: #### 4 [id number] #### [facility] [address] [place] [address] Garrett Harris M.D. [id number] CANNABINOID SCREEN URINE Not detected Normal None Detected [facility] Comment on above: Order Comment: Scree n results should be used for treatment purposes only. Specimen will be kept for 2 weeks, if the sample is adequate. Confirmation testing can be initiated by calling the lab within 2 weeks. Result Comment: Urin e Cannabinoids Cutoff: < 50 ng/mL = None Detected Performed By: #### 4 [id number] #### [facility] [address] [place] [address] Garrett Harris M.D. [id number] COCAINE, SCREEN URINE Not detected Normal None Detected [facility] Comment on above: Order Comment: Scree n results should be used for treatment purposes only. Specimen will be kept for 2 weeks, if the sample is adequate. Confirmation testing can be initiated by calling the lab within 2 weeks. Result Comment: Urin e Cocaine Cutoff: < 300 ng/mL = None Detected Performed By: #### 4 [id number] #### [facility] [address] [place] [address] Garrett Harris M.D. [id number] FENTANYL, URINE Positive Abnormal None Detected [facility] Comment on above: Order Comment: Scree n results should be used for treatment purposes only. Specimen will be kept for 2 weeks, if the sample is adequate. Confirmation testing can be initiated by calling the lab within 2 weeks. Result Comment: Urin e Fentanyl Cutoff: < 1 ng/mL = None Detected Performed By: #### 4 [id number] #### [facility] [address] [place] [address] Garrett Harris M.D. [id number] METHADONE SCREEN, URINE Not detected Normal None Detected [facility] Comment on above: Order Comment: Scree n results should be used for treatment purposes only. Specimen will be kept for 2 weeks, if the sample is adequate. Confirmation testing can be initiated by calling the lab within 2 weeks. Result Comment: Urin e Methadone Cutoff: < 300 ng/mL = None Detected Performed By: #### 4 [id number] #### [facility] [address] [place], [place] [address] Garrett Harris M.D. [id number] OPIATE SCREEN URINE Positive Abnormal None Detected [facility] Comment on above: Order Comment: Scree n results should be used for treatment purposes only. Specimen will be kept for 2 weeks, if the sample is adequate. Confirmation testing can be initiated by calling the lab within 2 weeks. Result Comment: Urin e Opiates Cutoff: < 300 ng/mL = None Detected Performed By: #### 4 [id number] #### [facility] [address] [place] [address] Garrett Harris M.D. [id number] OXYCODONE SCREEN, URINE Not detected Normal None Detected [facility] Comment on above: Order Comment: Scree n results should be used for treatment purposes only. Specimen will be kept for 2 weeks, if the sample is adequate. Confirmation testing can be initiated by calling the lab within 2 weeks. Result Comment: Urin e Oxycodone Cutoff: < 100 ng/mL = None Detected Performed By: #### 4 [id number] #### [facility] [address] [place], [place] [address] Garrett Harris M.D. [id number] ED Prov Noteon 01-17-2025 ED Prov Note ED PROVIDER NOTE [facility] NAME: Cassie Suggs AGE: 34 y.o. : 1990 VISIT DATE: 01/17/2025 CSN: [id number] PCP: Kareen Salgado, [employer] Chief Complaint Patient presents with Dizziness Pt report using heroin today. States she believes friends had injected her w/ meth when she was passed out. Reports leg numbness, burning sensation to abd and dry mouth This patient states she overdosed on heroin about an hour ago and they brought me back by giving me methamphetamine instead of Narcan. She feels her heart racing and burning in her stomach and dry mouth. Past Medical History: Diagnosis Date 38 weeks gestation of 06/12/2021 Anxiety Depression Hepatitis C Herpes HPV in female Substance abuse (HCC) Past Surgical History: Procedure Laterality Date CERVICAL CONIZATION LOOP ELECTROSURGICAL EXCISION PROCEDURE LEEP WISDOM TOOTH EXTRACTION Family History Problem Relation Age of Onset Hypertension Mother Miscarriages / Stillbirths Mother Alcohol abuse Father Depression Father Hypertension Father Cancer Maternal Aunt Arthritis Maternal Grandmother Cancer Maternal Grandfather COPD Maternal Grandfather Heart disease Maternal Grandfather Social History [1] Previous Medications Medication Sig busPIRone (BUSPAR) 30 MG tablet (Patient not taking: Reported on 12/01/2024 .) ibuprofen (ADVIL,MOTRIN) 400 MG tablet Take 1 (one) tablet (400 mg total) by mouth every 6 (six) hours as needed for pain . OLANZapine (ZYPREXA) 10 MG tablet (Patient not taking: Reported on 12/01/2024 .) topiramate (TOPAMAX) 25 MG tablet Take 1 (one) tablet (25 mg total) by mouth 2 (two) times a day . (Patient not taking: Reported on 12/01/2024 .) Allergies[2] Review of Systems Cardiovascular: Positive for palpitations. All other systems reviewed and are negative. Patient Vitals for the past 24 hrs: BP Temp Pulse Resp SpO2 Height Weight 01/17/252014 -- -- (!) 109 (!) 20 95 % -- -- 01/17/251999 109/80 -- (!) 110 (!) 21 97 % -- -- 01/17/25 195 (!) 103/92 -- (!) 110 18 96 % -- -- 01/17/25 1751 (!) 136/97 98 degrees F (36.7 degrees C) (!) 115 (!) 20 96 % 5' 5 72.6 kg (160 lb) Physical Exam Vitals and nursing note reviewed. Constitutional: Appearance: Normal appearance. HENT: Head: Normocephalic and atraumatic. Right Ear: Tympanic membrane, ear canal and external ear normal. Left Ear: Tympanic membrane, ear canal and external ear normal. Nose: Nose normal. Mouth/Throat: Mouth: Mucous membranes are moist. Eyes: Extraocular Movements: Extraocular movements intact. Conjunctiva/sclera: Conjunctivae normal. Pupils: Pupils are equal, round, and reactive to light. Cardiovascular: Rate and Rhythm: Regular rhythm. Tachycardia present. Heart sounds: Normal heart sounds. Musculoskeletal: General: Normal range of motion. Cervical back: Normal range of motion. Pulmonary: Effort: Pulmonary effort is normal. Breath sounds: Normal breath sounds. Abdominal: General: There is no distension. Skin: General: Skin is warm and dry. Neurological: General: No focal deficit present. Mental Status: She is alert and oriented to person, place, and time. GCS: GCS eye subscore is 4. GCS verbal subscore is 5. GCS motor subscore is 6. Cranial Nerves: Cranial nerves 2-12 are intact. Motor: Motor function is intact. Coordination: Coordination is intact. Gait: Gait is intact. Psychiatric: Mood and Affect: Mood normal. Behavior: Behavior normal. Laboratory & Radiographic Imaging (if done): Results for orders placed or performed during the hospital encounter of 01/17/25 BMP Result Value Ref Range Sodium 141 135 - 145 mmol/L Potassium 3.7 3.5 - 5.1 mmol/L Chloride 99 98 - 108 mmol/L Bicarbonate 21 21 - 32 mmol/L Anion Gap 25 (H) 10 - 20 mmol/L Glucose 77 65 - 99 mg/dL BUN 8 8 - 25 mg/dL Creatinine 0.58 0.40 - 1.10 mg/dL eGFR 121 >=60 mL/min/1.73 m2 BUN/Creatinine Ratio 13.8 10.0 - 20.0 Calcium 9.1 8.4 - 10.2 mg/dL hCG, Blood, QUANTITATIVE Result Value Ref Range hCG Quant <1 0 - 5 mIU/mL Liver Function Tests (LFTs) Result Value Ref Range Total Protein 7.0 6.0 - 8.0 g/dL Albumin 3.9 3.2 - 5.2 g/dL Total Bilirubin 0.3 0.0 - 1.3 mg/dL Bilirubin, Direct <0.2 0.0 - 0.4 mg/dL Alkaline Phosphatase 72 40 - 140 U/L AST 44 (H) 0-35 U/L U/L ALT 45 (H) 0-35 U/L U/L Lipase Result Value Ref Range Lipase 18 15 - 65 U/L Troponin x 2 (Now and Repeat in 2 hours) Result Value Ref Range Troponin T <6 <=14 ng/L Troponin T Interpretation Normal Troponin x 2 (Now and Repeat in 2 hours) Result Value Ref Range Troponin T <6 <=14 ng/L Interp Troponin T Delta Change No biomarker evidence of cardiac injury. Urine Drug Screen Result Value Ref Range Amphetamine Screen, Urine Presumptive Positive (A) None Detected Barbiturate Screen, Urine None Detected None Detected Benzodiazepine Scr (more content not included)... Normal [facility] HCG, BLOOD, QUANTITATIVEon 0 01-17-2025 HCG, QUANTITATIVE < Normal 0-5 [facility] Comment on above: Order Comment: Males and non females: <5 mIU/mL Females during : 3-4 weeks 9-130 mIU/mL 4-5 weeks 75-2600 mIU/mL 5-6 weeks 850-20,800 mIU/mL 6-7 weeks 4000-100,200 mIU/mL 7-12 weeks 11,500-289,000 mIU/mL 12-16 weeks 18,300-137,000 mIU/mL 16-29 weeks 1,400-53,000 mIU/mL 29-41 weeks 940-60,000 mIU/mL Performed By: #### 4 [id number] #### [facility] [address] [place] [address] Garrett Harris M.D. [id number] HEPATIC FUNCTION PANELon Albumin [Mass/Vol] 3.9 g/dL Normal 3.2-5.2 [facility] Comment on above: Performed By: #### 4 [id number] #### [facility] [address] [place] [address] Garrett Harris M.D. [id number] ALP [Catalytic activity/Vol] 72 U/L Normal 40-140 [facility] Comment on above: Performed By: #### 4 [id number] #### [facility] [address] [place] [address] Garrett Harris M.D. [id number] ALT [Catalytic activity/Vol] 45 U/L High 0-35 U/L [facility] Comment on above: Performed By: #### 4 [id number] #### [facility] [address] [place] [address]350[address] Garrett Harris M.D. [id number] AST [Catalytic activity/Vol] 44 U/L High 0-35 U/L [facility] Comment on above: Performed By: #### 4 [id number] #### [facility] [address] [place] [address] Garrett Harris M.D. [id number] Bilirubin [Mass/Vol] 0.3 mg/dL Normal 0.0-1.3 [facility] Comment on above: Performed By: #### 4 [id number] #### [facility] [address] [place] [address] Garrett Harris M.D. [id number] BILIRUBIN, DIRECT < Normal 0.0-0.4 [facility] Comment on above: Performed By: #### 4 [id number] #### [facility] [address] [place] [address] Garrett Harris M.D. [id number] Protein [Mass/Vol] 7.0 g/dL Normal 6.0-8.0 [facility] Comment on above: Performed By: #### 4 [id number] #### [facility] [address] [place], [place] [address] Garrett Harris M.D. [id number] LIPASEon 01-17-2025 Lipase [Catalytic activity/Vol] 18 U/L Normal 15-65 [facility] Comment on above: Performed By: #### 4 6086 #### [facility] [address] [place] [address] Garrett Harris M.D. [id number] TROPONIN X 2 (NOW AND REPEAT IN 2 HOURS)on 01-17-2025 TROPONIN T DELTA CHANGE INTERPRETATION No biomarker evidence of cardiac injury. Normal [facility] Comment on above: Performed By: #### 4 [id number] #### [facility] [address] [place] [address] Garrett Harris M.D. [id number] TROPONIN T NG/L < Normal <=14 [facility] Comment on above: Performed By: #### 4 [id number] #### [facility] [address] [place] [address] Garrett Harris M.D. [id number] BASELINE TROPONIN T NG/L < Normal <=14 [facility] Comment on above: Performed By: #### 4 [id number] #### [facility] [address], [place] [address] Garrett Harris M.D. [id number] TROPONIN T INTERPRETATION Normal Normal [facility] Comment on above: Performed By: #### 4 [id number] #### [facility] [address], [place] [address] Garrett Harris M.D. [id number] ED Prov Noteon 12-01-2024 ED Prov Note ED PROVIDER NOTE [facility] EM[facility]GENCY [facility] NAME: Cassie Suggs AGE: 34 y.o. : 1990 VISIT DATE: 12/01/2024 CSN: [id number] PCP: Kareen Salgado, [employer] Chief Complaint Patient presents with Leg Pain Leg Swelling Nausea Ankle Pain 34-year-old female presents the ER today (along with a significant other who is being seen for an unrelated complaint) with multiple plaints. She notes that she has noticed some swelling in her bilateral lateral ankles for the past 1 month. She denies any injury to trigger the pain. No new activities. She notes that today started she did not feel well and developed some symptoms of nausea and chills and is concerned that she is retaining fluid in her legs (prickly her thighs). The patient also notes that she has been having some shooting pain in her bilateral legs for the last couple of days (her significant other notes has been going on for months). The patient does note she also been having problem with irregular menstrual periods. She notably did schedule appoint with women's care but missed the appointment. She was told that it is possible she might have a thyroid problem but she has not been seen for that yet. She denies having any fevers. She denies coughing or cold symptoms. She does report nausea but no vomiting. No diarrhea. No abdominal pain. Past Medical History: Diagnosis Date 38 weeks gestation of 06/12/2021 Anxiety Depression Hepatitis C Herpes HPV in female Substance abuse (HCC) Past Surgical History: Procedure Laterality Date CERVICAL CONIZATION LOOP ELECTROSURGICAL EXCISION PROCEDURE LEEP WISDOM TOOTH EXTRACTION Family History Problem Relation Age of Onset Hypertension Mother Miscarriages / Stillbirths Mother Alcohol abuse Father Depression Father Hypertension Father Cancer Maternal Aunt Arthritis Maternal Grandmother Cancer Maternal Grandfather COPD Maternal Grandfather Heart disease Maternal Grandfather Social History [1] Previous Medications Medication Sig ibuprofen (ADVIL,MOTRIN) 400 MG tablet Take 1 (one) tablet (400 mg total) by mouth every 6 (six) hours as needed for pain . busPIRone (BUSPAR) 30 MG tablet (Patient not taking: Reported on 12/01/2024 .) OLANZapine (ZYPREXA) 10 MG tablet (Patient not taking: Reported on 12/01/2024 .) topiramate (TOPAMAX) 25 MG tablet Take 1 (one) tablet (25 mg total) by mouth 2 (two) times a day . (Patient not taking: Reported on 12/01/2024 .) Allergies[2] Review of Systems Constitutional: Positive for chills. Negative for fever. HENT: Negative for sore throat. Respiratory: Negative for cough. Cardiovascular: Negative for chest pain. Gastrointestinal: Positive for nausea. Negative for vomiting. Genitourinary: Positive for menstrual problem. Musculoskeletal: Positive for joint swelling (Bilateral lateral malleolus). Negative for arthralgias and gait problem. Intermittent diffuse bilateral leg pain. Skin: Negative for rash and wound. Neurological: Negative for headaches. Patient Vitals for the past 24 hrs: BP Temp Pulse Resp SpO2 Height Weight 12/01/24 2227 130/89 -- 90 16 99 % -- -- 12/01/242017 (!) 143/106 98.2 degrees F (36.8 degrees C) (!) 113 18 99 % 5' 5 68 kg (150 lb) Physical Exam Vitals and nursing note reviewed. Constitutional: Appearance: She is well-developed. HENT: Head: Normocephalic and atraumatic. Cardiovascular: Rate and Rhythm: Normal rate and regular rhythm. Pulses: Normal pulses. Heart sounds: Normal heart sounds. Musculoskeletal: General: Normal range of motion. Right lower leg: No edema. Left lower leg: No edema. Comments: Questionable slight bilateral ankle effusion. No peripheral edema. Pulmonary: Effort: Pulmonary effort is normal. Abdominal: General: Bowel sounds are normal. Palpations: Abdomen is soft. Tenderness: There is no abdominal tenderness. Skin: General: Skin is warm and dry. Neurological: Mental Status: She is alert and oriented to person, place, and time. Gait: Gait normal. Psychiatric: Behavior: Behavior normal. Laboratory & Radiographic Imaging (if done): Results for orders placed or performed during the hospital encounter of 12/01/24 POC CBC and Differential Result Value Ref Range WBC 6.89 4.50 - 11.00 K/mcL RBC 5.11 4.00 - 5.20 M/mcL Hemoglobin 16.3 (H) 12.0 - 16.0 g/dL Hematocrit 46.9 (H) 36.0 - 46.0 % MCV 91.8 80.0 - 100.0 fL MCH 31.9 26.0 - 34.0 pg MCHC 34.8 31.0 - 37.0 g/dL RDW - CV 11.9 11.6 - 14.8 % Platelets 228 150 - 400 K/mcL MPV 9.5 9.4 - 12.4 fL Neutrophils 70.8 % Lymphocytes 22.2 % Monocytes 6.7 % Eosinophils 0.1 % Basophils 0.1 % IG Percent 0.10 % Neutrophils Abs 4.87 1.70 - 7.00 K/mcL Lymphocytes Abs 1.53 0.90 - 4.00 K/mcL Monocytes Abs 0.46 0.30 - 0.90 K/mcL Eosinophils Abs 0.01 0.00 - 0.50 K/mcL Basophils Abs 0.01 0.00 - 0.30 K/mcL IG Absolute 0.01 0.00 - 0.30 K/mcL (more content not included)... Normal [facility] POC B-TYPE NATRIURETIC PEPTI DE (BNP) - [facility] 12-01-2024 POC B-TYPE NATRIURETIC PEPTIDE < Normal <100 [facility] Comment on above: Performed By: #### P [id number] #### ONED FSED POCT LAB [address] [address] Roscoe Hernandez.Amrita [id number] POC BASIC METABOLIC PANEL - [facility] 12-01-2024 Chloride [Moles/Vol] 103 mmol/L Normal 98-108 [facility] Comment on above: Order Comment: [facility] has implemented the eGFR calculation approach that does not have a coefficient for race that conforms to the NKF-ASN Task Force Recommendations. Performed By: #### P [id number] #### ONED FSED POCT LAB [address] [address] Roscoe Hernandez.O. [id number] CO2 [Moles/Vol] 28 mmol/L Normal 21-32 [facility] Comment on above: Order Comment: [facility] has implemented the eGFR calculation approach that does not have a coefficient for race that conforms to the NKF-ASN Task Force Recommendations. Performed By: #### P [id number] #### ONED FSED POCT LAB [address] [id number] Roscoe Hernandez.OAlfonso [id number] Creatinine [Mass/Vol] 0.60 mg/dL Normal 0.40-1.10 [facility] Comment on above: Order Comment: [facility] has implemented the eGFR calculation approach that does not have a coefficient for race that conforms to the NKF-ASN Task Force Recommendations. Performed By: #### P [id number] #### ONED FSED POCT LAB [address] [address] Roscoe Hernandez.OAlfonso [id number] Glucose [Mass/Vol] 85 mg/dL Normal 65-99 [facility] Comment on above: Order Comment: [facility] has implemented the eGFR calculation approach that does not have a coefficient for race that conforms to the NKF-ASN Task Force Recommendations. Performed By: #### P [id number] #### ONED FSED POCT LAB [address] [address] Bernard Langford D.OAlfonso [id number] POC GFR 120 mL/min/1.73 m2 Normal >=60 [facility] Comment on above: Order Comment: [facility] has implemented the eGFR calculation approach that does not have a coefficient for race that conforms to the NKF-ASN Task Force Recommendations. Result Comment: Charline mated GFR was calculated using the 2020 CKD-EPI creatinine equation. Performed By: #### P [id number] #### ONED FSED POCT LAB [address] [address] Roscoe Hernandez.OAlfonso [id number] POC IONIZED CALCIUM 5.5 mg/dL High 4.5-5.3 [facility] Comment on above: Order Comment: [facility] has implemented the eGFR calculation approach that does not have a coefficient for race that conforms to the NKF-ASN Task Force Recommendations. Performed By: #### P [id number] #### ONED FSED POCT LAB [address] [address] Bernard Langford D.O. [id number] Potassium [Moles/Vol] 4.8 mmol/L Normal 3.5-5.1 [facility] Comment on above: Order Comment: [facility] has implemented the eGFR calculation approach that does not have a coefficient for race that conforms to the NKF-ASN Task Force Recommendations. Performed By: #### P [id number] #### ONED FSED POCT LAB [address] [address] Bernard Langford D.O. [id number] Sodium [Moles/Vol] 146 mmol/L High 135-145 [facility] Comment on above: Order Comment: [facility] has implemented the eGFR calculation approach that does not have a coefficient for race that conforms to the NKF-ASN Task Force Recommendations. Performed By: #### P [id number] #### ONED FSED POCT LAB [address] [address] Bernard Langford D.O. [id number] Urea nitrogen [Mass/Vol] 12 mg/dL Normal 8-25 [facility] Comment on above: Order Comment: [facility] has implemented the eGFR calculation approach that does not have a coefficient for race that conforms to the NKF-ASN Task Force Recommendations. Performed By: #### P [id number] #### ONED FSED POCT LAB [address] [address] Bernard Langford D.O. [id number] POC CBC AND DIFFERENTIALon 0 12-01-2024 BASOPHILS ABSOLUTE COUNT 0.01 K/mcL Normal 0.00-0.30 [facility] Comment on above: Performed By: #### L [id number] #### ONED FSED POCT LAB [address] [address] Bernard Primitivo, D.O. [id number] Basophils/100 WBC (Bld) 0.1 % Normal [facility] Comment on above: Performed By: #### L [id number] #### ONED FSED POCT LAB [address] [address] Roscoe Hernandez.O. [id number] Eosinophils (Bld) [#/Vol] 0.01 10*3/uL Normal 0.00-0.50 [facility] Comment on above: Performed By: #### L [id number] #### ONED FSED POCT LAB [address] [address] Roscoe Hernandez.O. [id number] Eosinophils/100 WBC (Bld) 0.1 % Normal [facility] Comment on above: Performed By: #### L [id number] #### ONED FSED POCT LAB [address] [address] Bernard Langford D.O. [id number] Erythrocyte distribution width (RBC) [Ratio] 11.9 % Normal 11.6-14.8 [facility] Comment on above: Performed By: #### L [id number] #### ONED FSED POCT LAB [address] [address] Roscoe Hernandez.O. [id number] Hematocrit (Bld) [Volume fraction] 46.9 % High 36.0-46.0 [facility] Comment on above: Performed By: #### L [id number] #### ONED FSED POCT LAB [address] [address] Roscoe Hernandez.O. [id number] Hemoglobin (Bld) [Mass/Vol] 16.3 g/dL High 12.0-16.0 [facility] Comment on above: Result Comment: Hemo globin result outside normal range for a female patient, consider a mixing issue. Performed By: #### L [id number] #### ONED FSED POCT LAB [address] [address] Roscoe Hernandez.O. [id number] IG ABSOLUTE 0.01 K/mcL Normal 0.00-0.30 [facility] Comment on above: Performed By: #### L [id number] #### ONED FSED POCT LAB [address] [id number] Dane HernandezOAlfonso [id number] IG PERCENT 0.10 % Normal [facility] Comment on above: Result Comment: The IG parameter is the percentage of metamyelocytes, myelocytes and promyelocytes. An immature granulocyte count (IG) of 1% or more suggests the possibility of infection, an IG count of 3% is very likely related to an infection. Performed By: #### L [id number] #### ONED FSED POCT LAB [address] [id number] Roscoe Hernandez.OAlfonso [id number] Lymphocytes (Bld) [#/Vol] 1.53 10*3/uL Normal 0.90-4.00 [facility] Comment on above: Performed By: #### L [id number] #### ONED FSED POCT LAB [address] [id number] Roscoe Hernandez.OAlfonso [id number] Lymphocytes/100 WBC (Bld) 22.2 % Normal [facility] Comment on above: Performed By: #### L [id number] #### ONED FSED POCT LAB [address] [id number] Roscoe Hernandez.OAlfonso [id number] MCH (RBC) [Entitic mass] 31.9 pg Normal 26.0-34.0 [facility] Comment on above: Performed By: #### L [id number] #### ONED FSED POCT LAB [address] [id number] Roscoe Hernandez.OAlfonso [id number] MCV (RBC) [Entitic vol] 91.8 fL Normal 80.0-100.0 [facility] Comment on above: Performed By: #### L [id number] #### ONED FSED POCT LAB [address] [address] Bernard Langford D.O. [id number] MEAN CORPUSCULAR HEMOGLOBIN CONC 34.8 g/dL Normal 31.0-37.0 [facility] Comment on above: Performed By: #### L [id number] #### ONED FSED POCT LAB [address] [address] Bernard Langford, D.O. [id number] Monocytes (Bld) [#/Vol] 0.46 10*3/uL Normal 0.30-0.90 [facility] Comment on above: Performed By: #### L [id number] #### ONED FSED POCT LAB [address] [address] Bernard Langford, D.O. [id number] Monocytes/100 WBC (Bld) 6.7 % Normal [facility] Comment on above: Performed By: #### L [id number] #### ONED FSED POCT LAB [address] [address] Bernard Langford, D.O. [id number] NEUTROPHILS ABSOLUTE COUNT 4.87 K/mcL Normal 1.70-7.00 [facility] Comment on above: Performed By: #### L [id number] #### ONED FSED POCT LAB [address] [address] Bernard Langford, D.O. [id number] Neutrophils/100 WBC (Bld) 70.8 % Normal [facility] Comment on above: Performed By: #### L [id number] #### ONED FSED POCT LAB [address] [address] Bernard Langford D.O. [id number] Platelet mean volume (Bld) [Entitic vol] 9.5 fL Normal 9.4-12.4 [facility] Comment on above: Performed By: #### L [id number] #### ONED FSED POCT LAB [address] [address] Bernard Langford D.O. [id number] Platelets (Bld) [#/Vol] 228 10*3/uL Normal 150-400 [facility] Comment on above: Performed By: #### L [id number] #### ONED FSED POCT LAB [address] [id number] Roscoe Hernandez.O. [id number] RBC (Bld) [#/Vol] 5.11 10*6/uL Normal 4.00-5.20 [facility] Comment on above: Performed By: #### L [id number] #### ONED FSED POCT LAB [address] [id number] Roscoe Hernandez.O. [id number] WBC (Bld) [#/Vol] 6.89 10*3/uL Normal 4.50-11.00 [facility] Comment on above: Performed By: #### L [id number] #### ONED FSED POCT LAB [address] [address] Roscoe Hernandez.O. [id number] POC LIVER PANEL PLUS [facility] 12-01-2024 Albumin [Mass/Vol] 4.4 g/dL Normal 3.2-5.2 [facility] Comment on above: Performed By: #### P [id number] #### ONED FSED POCT LAB [address] [id number] Bernard Langford D.O. [id number] ALP [Catalytic activity/Vol] 52 U/L Normal 40-140 [facility] Comment on above: Performed By: #### P [id number] #### ONED FSED POCT LAB [address], [place] [address] Bernard Langford D.O. [id number] ALT [Catalytic activity/Vol] 30 U/L Normal 0-40 [facility] Comment on above: Performed By: #### P [id number] #### ONED FSED POCT LAB [address], [place] [address] Bernard Langford D.O. [id number] Amylase [Catalytic activity/Vol] 21 U/L Low 25-115 [facility] Comment on above: Performed By: #### P [id number] #### ONED FSED POCT LAB [address] [address] Roscoe Hernandez.O. [id number] Amylase [Catalytic activity/Vol] 9 U/L Normal 7-33 [facility] Comment on above: Performed By: #### P [id number] #### ONED FSED POCT LAB [address] [address] Bernard Langford D.O. [id number] AST [Catalytic activity/Vol] 38 U/L Normal 0-45 [facility] Comment on above: Performed By: #### P [id number] #### ONED FSED POCT LAB [address] [address] Bernard Langford D.O. [id number] Bilirubin [Mass/Vol] 0.8 mg/dL Normal 0.0-1.3 [facility] Comment on above: Performed By: #### P [id number] #### ONED FSED POCT LAB [address] [address] Bernard Langford D.O. [id number] Protein [Mass/Vol] 8.6 g/dL High 6.0-8.0 [facility] Comment on above: Performed By: #### P [id number] #### ONED FSED POCT LAB [address] [address] Bernard Langford D.O. [id number] POC , URINE - RALSo n 12-01-2024 Beta HCG ( test) Ql (U) Negative Normal Negative [facility] Comment on above: Order Comment: Negat patricio: Dilute urine specimens, as indicated by a low specific gravity (<1.010) may not contain representitive levels of hCG. If is still suspected, a serum test or repeat urine test using a first morning urine specimen should be considered. Performed By: #### [id number] #### ONED FSED POCT LAB [address] [address] Bernard Langford D.O. [id number] POC URINALYSIS DIPSTICK,AUTO - RALSon 12-01-2024 POC BILIRUBIN, URINE Negative Normal Negative [facility] Comment on above: Performed By: #### P [id number] #### ONED FSED POCT LAB [address] [address] Roscoe Hernandez.OAlfonso [id number] POC BLOOD, URINE Negative Normal Negative [facility] Comment on above: Performed By: #### P [id number] #### ONED FSED POCT LAB [address] [address] Roscoe Hernandez.OAlfonso [id number] POC GLUCOSE, URINE Negative Normal Negative [facility] Comment on above: Performed By: #### P [id number] #### ONED FSED POCT LAB [address] [address] Roscoe Hernandez.OAlfonso [id number] POC KETONES, URINE Negative Normal Negative [facility] Comment on above: Performed By: #### P [id number] #### ONED FSED POCT LAB [address] [address] Roscoe Hernandez.OAlfonso [id number] POC LEUKOCYTE ESTERASE, URINE Negative Normal Negative [facility] Comment on above: Performed By: #### P [id number] #### ONED FSED POCT LAB [address] [address] Roscoe Hernandez.OAlfonso [id number] POC NITRITE, URINE Negative Normal Negative [facility] Comment on above: Performed By: #### P [id number] #### ONED FSED POCT LAB [address] [address] Roscoe Hernandez.OAlfonso [id number] POC PH, URINE 6.5 Normal 5.0-7.0 [facility] Comment on above: Performed By: #### P [id number] #### ONED FSED POCT LAB [address] [address] Roscoe Hernandez.OAlfonso [id number] POC PROTEIN, URINE Negative Normal Negative [facility] Comment on above: Performed By: #### P [id number] #### ONED FSED POCT LAB [address] [address] Roscoe Hernandez.OAlfonso [id number] POC SPECIFIC GRAVITY 1.025 Normal 1.005-1.025 [facility] Comment on above: Performed By: #### P [id number] #### ONED FSED POCT LAB [address] [address] Roscoe Hernandez.OAlfonso [id number] POC UROBILINOGEN 2.0 mg/dL Abnormal < 2.0 [facility] Comment on above: Performed By: #### P [id number] #### ONED FSED POCT LAB [address] [address] Roscoe Hernandez.OAlfonso [id number] BASIC METABOLIC PANELon 09-07-2024 Anion gap [Moles/Vol] 13 mmol/L Normal 10-20 [facility] Comment on above: Order Comment: [facility] has implemented the eGFR calculation approach that does not have a coefficient for race that conforms to the NKF-ASN Task Force Recommendations. Performed By: #### [id number] #### LAB [address] [place], [place] [address] Garrett Harris M.D. [id number] Calcium [Mass/Vol] 9.7 mg/dL Normal 8.4-10.2 [facility] Comment on above: Order Comment: [facility] has implemented the eGFR calculation approach that does not have a coefficient for race that conforms to the NKF-ASN Task Force Recommendations. Performed By: #### 4 [id number] #### MH LAB [address] [place], [place] [address] Garrett Harris M.D. [id number] Chloride [Moles/Vol] 103 mmol/L Normal 98-108 [facility] Comment on above: Order Comment: [facility] has implemented the eGFR calculation approach that does not have a coefficient for race that conforms to the NKF-ASN Task Force Recommendations. Performed By: #### 4 [id number] #### LAB [address] [address] Garrett Hraris M.D. [id number] Creatinine [Mass/Vol] 0.60 mg/dL Normal 0.40-1.10 [facility] Comment on above: Order Comment: [facility] has implemented the eGFR calculation approach that does not have a coefficient for race that conforms to the NKF-ASN Task Force Recommendations. Performed By: #### 4 [id number] #### LAB [address] [address] Garrett Harris M.D. [id number] EGFR 120 mL/min/1.73 m2 Normal >=60 [facility] Comment on above: Order Comment: [facility] has implemented the eGFR calculation approach that does not have a coefficient for race that conforms to the NKF-ASN Task Force Recommendations. Result Comment: Charline mated GFR was calculated using the 2020 CKD-EPI creatinine equation. Performed By: #### 4 [id number] #### LAB [address] [address] Garrett Harris M.D. [id number] Glucose [Mass/Vol] 97 mg/dL Normal 65-99 [facility] Comment on above: Order Comment: [facility] has implemented the eGFR calculation approach that does not have a coefficient for race that conforms to the NKF-ASN Task Force Recommendations. Performed By: #### 4 [id number] #### LAB [address] [address] Garrett Harris M.D. [id number] HCO3 (Bld) [Moles/Vol] 26 mmol/L Normal 21-32 [facility] Comment on above: Order Comment: [facility] has implemented the eGFR calculation approach that does not have a coefficient for race that conforms to the NKF-ASN Task Force Recommendations. Performed By: #### 4 [id number] #### LAB [address] [address] Garrett Harris M.D. [id number] Potassium [Moles/Vol] 4.0 mmol/L Normal 3.5-5.1 [facility] Comment on above: Order Comment: [facility] has implemented the eGFR calculation approach that does not have a coefficient for race that conforms to the NKF-ASN Task Force Recommendations. Performed By: #### 4 [id number] #### LAB [address] [place], [place] [address] Garrett Harris M.D. [id number] Sodium [Moles/Vol] 138 mmol/L Normal 135-145 [facility] Comment on above: Order Comment: [facility] has implemented the eGFR calculation approach that does not have a coefficient for race that conforms to the NKF-ASN Task Force Recommendations. Performed By: #### 4 [id number] #### LAB [address] [address] Garrett Harris M.D. [id number] Urea nitrogen [Mass/Vol] 6 mg/dL Low 8-25 [facility] Comment on above: Order Comment: [facility] has implemented the eGFR calculation approach that does not have a coefficient for race that conforms to the NKF-ASN Task Force Recommendations. Performed By: #### 4 [id number] #### LAB [address] [address] Garrett Harris M.D. [id number] Urea nitrogen/Creatinine [Mass ratio] 10.0 mg/mg Normal 10.0-20.0 [facility] Comment on above: Order Comment: [facility] has implemented the eGFR calculation approach that does not have a coefficient for race that conforms to the NKF-ASN Task Force Recommendations. Performed By: #### 4 [id number] #### LAB [address] [address] Garrett Harris M.D. [id number] CBC WITH AUTO DIFFERENTIALon 09-16-2024 AUTO NRBC 0.0 % Normal [facility] Comment on above: Performed By: #### L [id number] #### LAB [address] [address] Garrett Harris M.D. [id number] AUTO NRBC ABS COUNT 0.00 K/mcL Normal 0.00-0.00 [facility] Comment on above: Performed By: #### L [id number] #### LAB [address] [address] Garrett Harris M.D. [id number] BASOPHILS ABSOLUTE COUNT 0.00 K/mcL Normal 0.00-0.30 [facility] Comment on above: Performed By: #### L [id number] #### LAB [address] [address] Garrett Harris M.D. [id number] Basophils/100 WBC (Bld) 0.0 % Normal [facility] Comment on above: Performed By: #### L [id number] #### LAB [address] [address] Garrett Harris M.D. [id number] Eosinophils (Bld) [#/Vol] 0.03 10*3/uL Normal 0.00-0.50 [facility] Comment on above: Performed By: #### L [id number] #### LAB [address] [address] Garrett Harris M.D. [id number] Eosinophils/100 WBC (Bld) 0.6 % Normal [facility] Comment on above: Performed By: #### L [id number] #### LAB [address] [place] [address] Garrett Harris M.D. [id number] Erythrocyte distribution width (RBC) [Ratio] 12.2 % Normal 11.6-14.8 [facility] Comment on above: Performed By: #### L [id number] #### LAB [address] [address] Garrett Harris M.D. [id number] Hematocrit (Bld) [Volume fraction] 40.5 % Normal 36.0-46.0 [facility] Comment on above: Performed By: #### L [id number] #### LAB [address] [place] [address] Garrett Harris M.D. [id number] Hemoglobin (Bld) [Mass/Vol] 13.8 g/dL Normal 12.0-16.0 [facility] Comment on above: Performed By: #### L [id number] #### LAB [address] [address] Garrett Harris M.D. [id number] IG ABSOLUTE 0.02 K/mcL Normal 0.00-0.30 [facility] Comment on above: Performed By: #### L [id number] #### LAB [address] [address] Garrett Harris M.D. [id number] IG PERCENT 0.40 % Normal [facility] Comment on above: Result Comment: The IG parameter is the percentage of metamyelocytes, myelocytes and promyelocytes. An immature granulocyte count (IG) of 1% or more suggests the possibility of infection, an IG count of 3% is very likely related to an infection. Performed By: #### L [id number] #### LAB [address] [place] [address] Garrett Harris M.D. [id number] Lymphocytes (Bld) [#/Vol] 1.20 10*3/uL Normal 0.90-4.00 [facility] Comment on above: Performed By: #### L [id number] #### LAB [address] [address] Garrett Harris M.D. [id number] Lymphocytes/100 WBC (Bld) 22.6 % Normal [facility] Comment on above: Performed By: #### L [id number] #### LAB [address] [address] Garrett Harris M.D. [id number] MCH (RBC) [Entitic mass] 30.5 pg Normal 26.0-34.0 [facility] Comment on above: Performed By: #### L [id number] #### LAB [address] [address] Garrett Harris M.D. [id number] MCV (RBC) [Entitic vol] 89.4 fL Normal 80.0-100.0 [facility] Comment on above: Performed By: #### L [id number] #### LAB [address] [address] Garrett Harris M.D. [id number] MEAN CORPUSCULAR HEMOGLOBIN CONC 34.1 g/dL Normal 31.0-37.0 [facility] Comment on above: Performed By: #### L [id number] #### LAB [address] [address] Garrett Harris M.D. [id number] Monocytes (Bld) [#/Vol] 0.37 10*3/uL Normal 0.30-0.90 [facility] Comment on above: Performed By: #### L [id number] #### LAB [address] [address] Garrett Harris M.D. [id number] Monocytes/100 WBC (Bld) 7.0 % Normal [facility] Comment on above: Performed By: #### L [id number] #### LAB [address] [address] Garrett Harris M.D. [id number] NEUTROPHILS ABSOLUTE COUNT 3.68 K/mcL Normal 1.70-7.00 [facility] Comment on above: Performed By: #### L [id number] #### LAB [address] [place] [address] Garrett Harris M.D. [id number] Neutrophils/100 WBC (Bld) 69.4 % Normal [facility] Comment on above: Performed By: #### L [id number] #### LAB [address] [place] [address] Garrett Harris M.D. [id number] Platelet mean volume (Bld) [Entitic vol] 9.7 fL Normal 9.4-12.4 [facility] Comment on above: Performed By: #### L [id number] #### LAB [address] [place] [address] Garrett Harris M.D. [id number] Platelets (Bld) [#/Vol] 298 10*3/uL Normal 150-400 [facility] Comment on above: Performed By: #### L [id number] #### LAB [address] [place] [address] Garrett Harris M.D. [id number] RBC (Bld) [#/Vol] 4.53 10*6/uL Normal 4.00-5.20 [facility] Comment on above: Performed By: #### L [id number] #### MH LAB [address] [place] [address] Garrett Harris M.D. [id number] WBC (Bld) [#/Vol] 5.30 10*3/uL Normal 4.50-11.00 [facility] [place] Comment on above: Performed By: #### L [id number] #### LAB [address] [address] Garrett Harris M.D. [id number] COVID-19/INFLUENZA A,B MOLEC ULARon 09-16-2024 SARS-CoV-2 (COVID-19) Ab IA Ql SARS-COV-2 (ALEX) Not Detected INFLUENZA A (ALEX) Not Detected INFLUENZA B (ALEX) Not Detected Normal Not Detected [facility] Comment on above: Performed By: #### L [id number] #### LAB [address] [address] Garrett Harris M.D. [id number] CT SOFT TISSUE NECK WITH CON TRASTon 09-16-2024 CT SOFT TISSUE NECK WITH CONTRAST EXAMINATION: CT SOFT TISSUE NECK WITH CONTRAST HISTORY: ORDERING SYSTEM PROVIDED HISTORY: Rule out peritonsillar abscess, TECHNOLOGIST PROVIDED HISTORY: Illness/Other Reason for exam: Rule out peritonsillar abscess Encounter Type: Initial Additional signs and symptoms: . ORDERING SYSTEM PROVIDED DIAGNOSIS CODES: COMPARISON: None. TECHNIQUE: Dose reduction techniques were achieved by using automated exposure control and/or adjustment of mA and/or kV according to patient size and/or use of iterative reconstruction technique. Postcontrast axial CT images obtained through the neck. Reconstructions obtained in the sagittal and coronal planes. CONTRAST: IOPAMIDOL 370 MG IODINE/ML (76 %) INTRAVENOUS SOLUTION - 75 mL, FINDINGS: Visualized intracranial contents are unremarkable. Paranasal sinuses clear. Mastoid air cells clear. Skull base intact. Orbital contents unremarkable. Head Sulfide Operator spaces normal. The parotid glands are normal. Submandibular glands are normal. The tongue and floor of mouth are normal. There is some motion artifact at the level of the oral cavity, oropharynx and hypopharynx. Nasopharynx normal. Oropharynx is unremarkable. Retropharyngeal space appears normal. Epiglottis appears normal. Vocal cords are symmetric. No laryngeal edema. No abscess. There is no inflammation or edema in the retropharyngeal space or parapharyngeal space. Thyroid gland normal. Trachea unremarkable. Visualized portion of the esophagus appears normal. Carotid arteries are normal. Internal jugular veins are patent. No lymphadenopathy. No neck mass. Lung apices are clear. The cervical spine is unremarkable. No suspicious osseous lesion. IMPRESSION: 1. No acute findings in the neck. There is no abscess. No swelling, edema or inflammation identified in the pharynx, larynx or epiglottis. No abscess. [facility] [place] Workstation ID: [id number] Dictated by: SHERRIE COHEN on MonSep 16, 2024 2:55:53 PM EST Transcribed by: PUSHPA BABIN on MonSep 16, 2024 3:22:17 PM EST Finalized by: SHERRIE COHEN on MonSep 16, 2024 6:51:24 PM EST Normal [facility] Comment on above: Order Comment: Injur y/Trauma or Illness?:Illness/OtherHow long have you had these symptoms (acute/chronic)?:AcuteReason for exam?:Rule out peritonsillar abscessType of Exam?:InitialAdditional signs and symptoms?:. ED Prov Noteon 09-16-2024 ED Prov Note ED PROVIDER NOTE [facility] EMERGENCY DEPARTMENT NAME: Cassie Suggs AGE: 34 y.o. : 1990 VISIT DATE: 09/16/2024 CSN: [id number] PCP: Kareen Salgado CNP Chief Complaint Patient presents with Sore Throat Patient presents to ED for evaluation of sore throat. She was diagnosed with COVID approximately 15 days ago. She states that a few days ago she started noticing some bumps on her tonsils on the right side. Her sore throat is on the right side. She does complain of some chills and fever as well. 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 No specific aggravating leaving factors. She denies any cough chest pain shortness of breath and difficulty swallowing. Patient also expresses concern over noticing bruising to her legs. She states that she just noticed this also several days ago. She went to an urgent care for such and was told there was not anything they could do. She denies any known injury and/or fall. Denies numbness and tingling. She denies history of previous. Past Medical History: Diagnosis Date 38 weeks gestation of 06/12/2021 Anxiety Depression Hepatitis C Herpes HPV in female Substance abuse (HCC) Past Surgical History: Procedure Laterality Date CERVICAL CONIZATION LOOP ELECTROSURGICAL EXCISION PROCEDURE LEEP WISDOM TOOTH EXTRACTION Family History Problem Relation Age of Onset Hypertension Mother Miscarriages / Stillbirths Mother Alcohol abuse Father Depression Father Hypertension Father Cancer Maternal Aunt Arthritis Maternal Grandmother Cancer Maternal Grandfather COPD Maternal Grandfather Heart disease Maternal Grandfather Social History Socioeconomic History Marital status: Single Tobacco Use Smoking status: Every Day Current packs/day: 0.50 Average packs/day: 0.5 packs/day for 15.1 years (7.6 ttl pk-yrs) Types: Cigarettes Start date: 2009 Smokeless tobacco: Never Vaping Use Vaping status: Never Used Substance and Sexual Activity Alcohol use: Not Currently Comment: SOCIALLY Drug use: Yes Types: Opiates, Heroin Comment: PT REPORTS HEROIN USAGE 1 week ago; States 05/17/2021 that she partoook in first 2 months of . 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 Sexual activity: Not Currently Partners: Male control/protection: None Social Drivers of Health Financial Resource Strain: Low Risk (09/28/2021) Overall Financial Resource Strain (CARDIA) Difficulty of Paying Living Expenses: Not hard at all Food Insecurity: No Food Insecurity (09/28/2021) Hunger Vital Sign Worried About Running Out of Food in the Last Year: Never true Ran Out of Food in the Last Year: Never true Transportation Needs: No Transportation Needs (09/28/2021) PRAPARE - Transportation Lack of Transportation (Medical): No Lack of Transportation (Non-Medical): No Physical Activity: Insufficiently Active (09/28/2021) Exercise Vital Sign Days of Exercise per Week: 1 day Minutes of Exercise per Session: 30 min Stress: No Stress Concern Present (09/28/2021) Citizen Of The [place] [employer] of Occupational Health - Occupational Stress Questionnaire Feeling of Stress : Not at all Social Connections: Socially Isolated (09/28/2021) Social Connection and Isolation Panel [NHANES] Frequency of Communication with Friends and Family: Twice a week Frequency of Social Gatherings with Friends and Family: Never Attends [employer] Services: Never Active Member of Clubs or Organizations: No Attends Club or Organization Meetings: Never Marital Status: Never Housing Stability: Low Risk (09/28/2021) Housing Stability Vital Sign Unable to Pay for Housing in the Last Year: No Number of Places Lived in the Last Year: 1 Unstable Housing in the Last Year: No Previous Medications Medication Sig busPIRone (BUSPAR) 30 MG tablet OLANZapine (ZYPREXA) 10 MG tablet topiramate (TOPAMAX) 25 MG tablet Take 1 (one) tablet (25 mg total) by mouth 2 (two) times a day . Allergies Allergen Reactions Vancomycin Hives and Itching Review of Systems Constitutional: Positive for chills and fever. Negative for appetite change and fatigue. HENT: Positive for sore throat. Negative for congestion, drooling, ear discharge, ear pain, postnasal drip, rhinorrhea, sinus pressure, sinus pain, sneezing, trouble swallowing and voice change. Eyes: Negative. Respiratory: Negative. Cardiovascular: Negative. Gastrointestinal: Negative. Genitourinary: Negative. Musculoskeletal: Negative. Skin: Negative. Neurological: Negative. Psychiatric/Behaviora l: Negative for confusion. Patient Vitals for the past 24 hrs: BP Temp Temp src Pulse Resp SpO2 09/16/24 1404 -- -- -- 93 -- -- 09/16/24 1256 125/80 98.2 degrees F (36.8 degrees C) Oral (!) 105 18 98 % Physical Exam Constitutional: Appearance: She is well-developed. HENT: Right Ear: Tympanic membrane and ear canal normal. Left Ear: Tympan (more content not included)... Normal [facility] RAPID STREP SCREENon 025 S. pyogenes Ag IA Ql (Unsp spec) Not detected Normal Not Detected [facility] Comment on above: Order Comment: Test Method: Nucleic Acid Amplification Performed By: #### L [id number] #### [place] [address] Garrett Harris M.D. [id number] CBCon 09-02-2024 Band form neutrophils/100 WBC (Bld) 1 % Normal 0.0-2.0 [facility] Comment on above: Performed By: #### A CBC, DDIMER #### Testing performed at [address] [address] #### CHEM7F, LIPA2, LIVR #### Testing performed at [address] [address] DTYPE MANUAL DIFF Normal [facility] Comment on above: Performed By: #### A CBC, DDIMER #### Testing performed at [address] [address] #### CHEM7F, LIPA2, LIVR #### Testing performed at [address] [address] Eosinophils/100 WBC (Bld) 2 % Normal 0.0-11.0 [facility] Comment on above: Performed By: #### A CBC, DDIMER #### Testing performed at [address] [address] #### CHEM7F, LIPA2, LIVR #### Testing performed at [address] [address] Lymphocytes/100 WBC (Bld) 49 % Normal 20.0-55.0 [facility] Comment on above: Performed By: #### A CBC, DDIMER #### Testing performed at [address] [address] #### CHEM7F, LIPA2, LIVR #### Testing performed at [address] [address] Monocytes/100 WBC (Bld) 2 % Normal 0.0-10.0 [facility] Comment on above: Performed By: #### A CBC, DDIMER #### Testing performed at [address] [address] #### CHEM7F, LIPA2, LIVR #### Testing performed at [address] [address] Neutrophils/100 WBC (Bld) 46 % Normal 37.0-75.0 [facility] Comment on above: Performed By: #### A CBC, DDIMER #### Testing performed at [address] [place] [address] #### CHEM7F, LIPA2, LIVR #### Testing performed at [address] [address] PLATELET COMMENT ADEQUATE Normal [facility] Comment on above: Performed By: #### A CBC, DDIMER #### Testing performed at [address] [place] [address] #### CHEM7F, LIPA2, LIVR #### Testing performed at [address] [address] RBC morphology finding Nom (Bld) NORMAL Normal [facility] Comment on above: Performed By: #### A CBC, DDIMER #### Testing performed at [address] [place] [address] #### CHEM7F, LIPA2, LIVR #### Testing performed at [address] [address] Erythrocyte distribution width (RBC) [Ratio] 12.5 % Normal 11.5-14.5 [facility] Comment on above: Performed By: #### A CBC, DDIMER #### Testing performed at [address] [place] [address] #### CHEM7F, LIPA2, LIVR #### Testing performed at [address] [address] Hematocrit (Bld) [Volume fraction] 39.8 % Normal 36.0-48.0 [facility] Comment on above: Performed By: #### A CBC, DDIMER #### Testing performed at [address] [place] [address] #### CHEM7F, LIPA2, LIVR #### Testing performed at [address] [address] Hemoglobin (Bld) [Mass/Vol] 14.2 g/dL Normal 12.0-16.0 [facility] Comment on above: Performed By: #### A CBC, DDIMER #### Testing performed at [address] [address] #### CHEM7F, LIPA2, LIVR #### Testing performed at [address] [address] MCH (RBC) [Entitic mass] 32.7 pg Normal 26.0-35.0 [facility] Comment on above: Performed By: #### A CBC, DDIMER #### Testing performed at [address] [address] #### CHEM7F, LIPA2, LIVR #### Testing performed at [address] [address] MCHC (RBC) [Mass/Vol] 35.8 g/dL Normal 27.0-37.0 [facility] Comment on above: Performed By: #### A CBC, DDIMER #### Testing performed at [address] [address] #### CHEM7F, LIPA2, LIVR #### Testing performed at [address] [address] MCV (RBC) [Entitic vol] 91.3 fL Normal 80.0-100.0 [facility] Comment on above: Performed By: #### A CBC, DDIMER #### Testing performed at [address] [place] [address] #### CHEM7F, LIPA2, LIVR #### Testing performed at [address] [address] Platelet mean volume (Bld) [Entitic vol] 8.1 fL Normal 7.4-11.0 [facility] Comment on above: Performed By: #### A CBC, DDIMER #### Testing performed at [address] [address] #### CHEM7F, LIPA2, LIVR #### Testing performed at [address] [address] Platelets (Bld) [#/Vol] 164 10*3/uL Normal 130-400 [facility] Comment on above: Performed By: #### A CBC, DDIMER #### Testing performed at [address] [address] #### CHEM7F, LIPA2, LIVR #### Testing performed at [address] [address] RBC (Bld) [#/Vol] 4.36 10*6/uL Normal 4.0-5.4 [facility] Comment on above: Performed By: #### A CBC, DDIMER #### Testing performed at [address] [place] [id number] #### CHEM7F, LIPA2, LIVR #### [place] [address] WBC (Bld) [#/Vol] 4.6 10*3/uL Normal 3.6-11.0 [facility] Comment on above: Performed By: #### A CBC, DDIMER #### [place] [address] #### CHEM7F, LIPA2, LIVR #### Testing performed at [address] [place] [id number] CBC, EDIF, PLATELETon 2024 Differential cell count method Nom (Bld) MANUAL DIFF % [facility] Eosinophils/100 WBC (Bld) 2 % 0.0 - 11.0 % [facility] Erythrocyte distribution width (RBC) [Ratio] 12.5 % 11.5 - 14.5 % [facility] Hematocrit (Bld) [Volume fraction] 39.8 % 36.0 - 48.0 % [facility] Hemoglobin (Bld) [Mass/Vol] 14.2 g/dL [facility] Immature granulocytes/100 WBC (Bld) 1 % 0.0 - 2.0 % [facility] Lymphocytes/100 WBC (Bld) 49 % 20.0 - 55.0 % [facility] MCH (RBC) [Entitic mass] 32.7 pg 26.0 - 35.0 PG [facility] MCHC (RBC) [Mass/Vol] 35.8 g/dL [facility] MCV (RBC) [Entitic vol] 91.3 fL [facility] Monocytes/100 WBC (Bld) 2 % 0.0 - 10.0 % [facility] Morphology [place] (Bld) [Interp] NORMAL [facility] Neutrophils/100 WBC (Bld) 46 % 37.0 - 75.0 % [facility] Platelet mean volume (Bld) [Entitic vol] 8.1 fL [facility] Platelet morphology finding Nom (Bld) ADEQUATE [facility] Platelets (Bld) [#/Vol] 164 10*3/uL 130 - 400 10*3/uL [facility] RBC (Bld) [#/Vol] 4.36 10*6/uL 4.0 - 5.4 10*6/uL [facility] WBC (Bld) [#/Vol] 4.6 10*3/uL 3.6 - 11.0 10*3/uL [facility] CHEM 7 FASTINGon 09-02-2024 Chloride [Moles/Vol] 100 mmol/L Normal 98-107 [facility] Comment on above: Result Comment: Teresa carrillo note: Triglyceride levels of 600mg/dL or higher may positively bias chloride results by approximately 2.1 mmol Performed By: #### A CBC, DDIMER #### [place] [address] #### CHEM7F, LIPA2, LIVR #### [place] [address] CO2 [Moles/Vol] 30 mmol/L Normal 22-30 [facility] Comment on above: Performed By: #### A CBC, DDIMER #### Testing performed at [address] [address] #### CHEM7F, LIPA2, LIVR #### Testing performed at [place] [id number] Creatinine [Mass/Vol] 0.55 mg/dL Low 0.70-1.20 [facility] Comment on above: Performed By: #### A CBC, DDIMER #### Testing performed at [address] [address] #### CHEM7F, LIPA2, LIVR #### Testing performed at [address] [place] [address] EST. GFR, 162 ml/min/1.73sq.m Normal [facility] Comment on above: Performed By: #### A CBC, DDIMER #### Testing performed at [address] [address] #### CHEM7F, LIPA2, LIVR #### [place] [address] EST. GFR,Non 134 ml/min/1.73sq.m Normal [facility] Comment on above: Performed By: #### A CBC, DDIMER #### [place] [address] #### CHEM7F, LIPA2, LIVR #### [place] [address] GFR Information Average GFR for 30-3 9 years old = 107. Normal [facility] Comment on above: Result Comment: Contact Center Agent jayson Kidney disease, GFR = <60. Kidney failure, GFR = <15. The GFR estimate is not adjusted for extreme body surface area or acute process, nor has it been validated for women or ethnic groups other than and . Testing performed at [place] [address] Performed By: #### A CBC, DDIMER #### Testing performed at [address] [address] #### CHEM7F, LIPA2, LIVR #### [place] [address] Glucose [Mass/Vol] 84 mg/dL Normal 70-100 [facility] Comment on above: Result Comment: NORMAL <100 mg/dL PREDIABETES 101-126 mg/dL DIABETES 126 mg/dL or higher Performed By: #### A CBC, DDIMER #### Testing performed at [address] [address] #### CHEM7F, LIPA2, LIVR #### [place] [address] Potassium [Moles/Vol] 4.3 mmol/L Normal 3.5-5.1 [facility] Comment on above: Performed By: #### A CBC, DDIMER #### Testing performed at [address] [address] #### CHEM7F, LIPA2, LIVR #### Testing performed at [address] [address] Sodium [Moles/Vol] 135 mmol/L Low 137-145 [facility] Comment on above: Performed By: #### A CBC, DDIMER #### Testing performed at [address] [address] #### CHEM7F, LIPA2, LIVR #### Testing performed at [address] [address] Urea nitrogen [Mass/Vol] 10 mg/dL Normal 7-20 [facility] Comment on above: Performed By: #### A CBC, DDIMER #### Testing performed at [address] [address] #### CHEM7F, LIPA2, LIVR #### Testing performed at [address] [address] CHEM 7 (LYTES,BUN,CREA,GLUC) on 09-02-2024 Chloride [Moles/Vol] 100 mmol/L [facility] Comment on above: Please note: Triglyc eride levels of 600mg/dL or higher may positively bias chloride results by approximately 2.1 mmol CO2 [Moles/Vol] 30 mmol/L [facility] Creatinine [Mass/Vol] 0.55 mg/dL Low [facility] GFR COMMENT Average GFR for 30-3 9 years old = 107. [facility] Comment on above: Chronic Kidney disea se, GFR = <60. Kidney failure, GFR = <15. The GFR estimate is not adjusted for extreme body surface area or acute process, nor has it been validated for women or ethnic groups other than and . Testing performed at [place], [place] [address] GFR/1.73 sq M.predicted among blacks MDRD (S/P/Bld) [Vol rate/Area] 162 mL/min/{1.73_m2} ml/min/1.73sq .m [facility] GFR/1.73 sq M.predicted among non-blacks MDRD (S/P/Bld) [Vol rate/Area] 134 mL/min/{1.73_m2} ml/min/1.73sq .m [facility] Glucose post fast [Mass/Vol] 84 mg/dL [facility] Comment on above: NORMAL <100 mg/dL PREDIABETES 101-126 mg/dL DIABETES 126 mg/dL or higher Potassium [Moles/Vol] 4.3 mmol/L [facility] Sodium [Moles/Vol] 135 mmol/L Low [facility] Urea nitrogen [Mass/Vol] 10 mg/dL [facility] CT ABDOMEN/PELVIS WITH CONTR Candida 09-02-2024 CT ABDOMEN/PELVIS WITH CONTRAST EXAMINATION: CT ABDOMEN/PELVIS WITH CONTRAST, 09/02/2024 3:11 AM EST HISTORY: RLQ abd pain with swollen abdomen COMPARISON: None. TECHNIQUE: CT scan of the abdomen and pelvis was performed with IV contrast. CT dose reduction technique was used, including Automated Exposure Control. FINDINGS: Lung bases are clear. The abdominal aorta is of normal caliber. Spleen, pancreas, adrenal glands are satisfactory. Gallbladder shows no calcified gallstones. No significant liver lesions. Kidneys enhance symmetrically bilaterally. There is no hydronephrosis and no evidence of obstructive uropathy. The unopacified loops of small bowel and colon including the appendix are normal. No free air free, fluid, or obstruction. IMPRESSION: No acute intra-abdominal pathology. Normal appendix. Normal [facility] CT Abdomen and Pelvis W cont rast Jose 09-02-2024 IMPRESSION: No acute intra-abdominal pathology. Normal appendix. RADIOLOGY EXAMINATION: CT ABDOMEN/PELVIS WITH CONTRAST, 09/02/2024 3:11 AM EST HISTORY: RLQ abd pain with swollen abdomen COMPARISON: None. TECHNIQUE: CT scan of the abdomen and pelvis was performed with IV contrast. CT dose reduction technique was used, including Automated Exposure Control. FINDINGS: Lung bases are clear. The abdominal aorta is of normal caliber. Spleen, pancreas, adrenal glands are satisfactory. Gallbladder shows no calcified gallstones. No significant liver lesions. Kidneys enhance symmetrically bilaterally. There is no hydronephrosis and no evidence of obstructive uropathy. The unopacified loops of small bowel and colon including the appendix are normal. No free air free, fluid, or obstruction. RADIOLOGY Renetta Graham DO - 09/02/2024 EXAMINATION: CT ABDOMEN/PELVIS WITH CONTRAST, 09/02/2024 3:11 AM EST HISTORY: RLQ abd pain with swollen abdomen COMPARISON: None. TECHNIQUE: CT scan of the abdomen and pelvis was performed with IV contrast. CT dose reduction technique was used, including Automated Exposure Control. FINDINGS: Lung bases are clear. The abdominal aorta is of normal caliber. Spleen, pancreas, adrenal glands are satisfactory. Gallbladder shows no calcified gallstones. No significant liver lesions. Kidneys enhance symmetrically bilaterally. There is no hydronephrosis and no evidence of obstructive uropathy. The unopacified loops of small bowel and colon including the appendix are normal. No free air free, fluid, or obstruction. IMPRESSION IMPRESSION: No acute intra-abdominal pathology. Normal appendix. [facility] Radiology Study observation (narrative) [facility] CT Abdomen and Pelvis W cont rast IVOrdered By: Renetta Graham on 09-02-2024 [facility] Work Phone: D DIMERon 09-02-2024 D DIMER 0.33 ??g/ml Normal <0.50 [facility] Comment on above: Result Comment: If r esult is greater than the cutoff value of 0.50 ??g/ml then the potential for PE or DVT exists. Other conditions exist which may cause a falsely elevated level. Please correlate clinically, including radiological findings and other clinical parameters. Performed By: #### A CBC, DDIMER #### Testing performed at [facility] [address] [place] [address] #### CHEM7F, LIPA2, LIVR #### Testing performed at [facility] [address] [place] [address] D-DIMER,QUANTITATIVEon 09-02 Fibrin D-dimer FEU (PPP) [Mass/Vol] 0.33 NINF [facility] Comment on above: If result is greater than the cutoff value of 0.50 g/ml then the potential for PE or DVT exists. Other conditions exist which may cause a falsely elevated level. Please correlate clinically, including radiological findings and other clinical parameters. [facility] HCG ( test) Ql (U)o n 09-02-2024 [facility] HCG QUALITATIVE, URINEon HCG ( test) Ql (U) Negative NEGATIVE [facility] HEPATIC FUNCTION PANELon Albumin [Mass/Vol] 4.6 g/dL [facility] ALP [Catalytic activity/Vol] 60 U/L [facility] ALT [Catalytic activity/Vol] 118 U/L High NINF [facility] Comment on above: Testing performed at [place] [address] AST [Catalytic activity/Vol] 71 U/L High [facility] Bilirubin [Mass/Vol] 0.5 mg/dL [facility] Bilirubin.direct [Mass/Vol] 0.2 mg/dL [facility] Protein [Mass/Vol] 8.0 g/dL [facility] INFLUENZA A AND B, PCRon FLUAV and FLUBV Ag IF Nom (Unsp spec) Negative NEGATIVE [facility] FLUBV Ag IA Ql (Unsp spec) Negative NEGATIVE [facility] Comment on above: TESTING PERFORMED BY [facility] LIPASEon 09-02-2024 Lipase [Catalytic activity/Vol] 54 U/L 23 - 300 U/L [facility] Comment on above: Testing performed at [place] [id number] LIPASE,SERUMon 09-02-2024 LIPASE,SERUM 54 U/L Normal 23-300 [facility] Comment on above: Result Comment: Test ing performed at [place] [address] Performed By: #### A CBC, DDIMER #### [place] [address] #### CHEM7F, LIPA2, LIVR #### Testing performed at [address] [address] LIVER PANELon 09-02-2024 Albumin [Mass/Vol] 4.6 g/dL Normal 3.5-5.0 [facility] Comment on above: Performed By: #### A CBC, DDIMER #### Testing performed at [place] [id number] #### CHEM7F, LIPA2, LIVR #### Testing performed at [address] [address] ALP [Catalytic activity/Vol] 60 U/L Normal 38-126 [facility] Comment on above: Performed By: #### A CBC, DDIMER #### Testing performed at [address] [address] #### CHEM7F, LIPA2, LIVR #### Testing performed at [address] [address] ALT [Catalytic activity/Vol] 118 U/L High <35 [facility] Comment on above: Result Comment: Test ing performed at [place] [address] Performed By: #### A CBC, DDIMER #### Testing performed at [address] [address] #### CHEM7F, LIPA2, LIVR #### [place] [address] AST [Catalytic activity/Vol] 71 U/L High 14-36 [facility] Comment on above: Performed By: #### A CBC, DDIMER #### Testing performed at [address] [address] #### CHEM7F, LIPA2, LIVR #### Testing performed at [address] [address] Bilirubin [Mass/Vol] 0.5 mg/dL Normal 0.2-1.3 [facility] Comment on above: Performed By: #### A CBC, DDIMER #### Testing performed at [address] [address] #### CHEM7F, LIPA2, LIVR #### Testing performed at [address] [address] Bilirubin.indirect [Mass/Vol] 0.2 mg/dL Normal 0.0-0.4 [facility] Comment on above: Performed By: #### A CBC, DDIMER #### Testing performed at [address] [address] #### CHEM7F, LIPA2, LIVR #### Testing performed at [address] [address] Protein [Mass/Vol] 8.0 g/dL Normal 6.3-8.2 [facility] Comment on above: Performed By: #### A CBC, DDIMER #### Testing performed at [address] [address] #### CHEM7F, LIPA2, LIVR #### Testing performed at [address] [address] NOVEL CORONAVIRUSon 09-02-19 25 NARRATIVE This test was performed using isothermal MARLEN for the qualitative detection of SARS-CoV-2 nucleic acid. Normal [facility] Comment on above: Performed By: #### C OVID #### Testing performed at [place] [id number] SARS-CoV-2 (COVID-19) RNA MARLEN+probe Ql (Unsp spec) Detected Abnormal NOT DETECTED [facility] Comment on above: Result Comment: ENHA NCED CONTACT, AND DROPLET ISOLATION IS REQUIRED FOR INPATIENTS WITH SARS-CoV-2. Performed By: #### C OVID #### [place] [address] NOVEL CORONAVIRUS LAB 1 - NA SOPHARYNGEALon 09-02-2024 Interpretation and review of laboratory results Abnormal [facility] SARS-CoV-2 (COVID-19) RNA MARLEN+probe Ql (Unsp spec) Detected Abnormal NOT DETECTED [facility] Comment on above: ENHANCED CONTACT, AN D DROPLET ISOLATION IS REQUIRED FOR INPATIENTS WITH SARS-CoV-2. SARS-CoV-2 (COVID-19) RNA MARLEN+probe Ql (Unsp spec) This test was performed using isothermal MARLEN for the qualitative detection of SARS-CoV-2 nucleic acid. [facility] No Panel Informationon 09-02 Interpretation and review of laboratory results Abnormal [facility] RAPID FLU Aon 09-02-2024 INFLUENZA A Negative Normal NEGATIVE [facility] Comment on above: Performed By: #### R FLUAB #### Testing performed at [address] [address] INFLUENZA B Negative Normal NEGATIVE [facility] Comment on above: Result Comment: TEST ING PERFORMED BY MARLEN Performed By: #### R FLUAB #### Testing performed at [address] [address] URINALYSIS, MACROon 09-02-19 25 Bilirubin Ql (U) Negative NEGATIVE [facility] Clarity (U) CLEAR CLEAR [facility] Color (U) YELLOW YELLOW [facility] Glucose Test strip (U) [Mass/Vol] Negative NEGATIVE mg/dl [facility] Hemoglobin Ql (U) Negative NEGATIVE [facility] Ketones (U) [Mass/Vol] Negative NEGATIVE mg/dl [facility] Leukocyte esterase Test strip Ql (U) Negative NEGATIVE [facility] Nitrite Ql (U) Negative NEGATIVE [facility] pH (U) 7.0 [pH] 5.0 - 7.0 [facility] Protein Ql (U) Negative NEGATIVE mg/dl [facility] Specific gravity (U) [Rel density] 1.010 1.010 - 1.025 [facility] Urobilinogen (U) [Mass/Vol] 0.2 mg/dL [facility] URINE HCG QUALon 09-02-2024 Beta HCG ( test) Ql (U) Negative Normal NEGATIVE [facility] Comment on above: Performed By: #### U HCGT, UMAC #### Testing performed at [address] [address] URINE MACROSCOPICon 09-02-19 25 Bilirubin Ql (U) Negative Normal NEGATIVE [facility] Comment on above: Performed By: #### U HCGT, UMAC #### Testing performed at [address] [address] Clarity (U) CLEAR Normal CLEAR [facility] Comment on above: Performed By: #### U HCGT, UMAC #### Testing performed at [address] [place] [address] Color (U) YELLOW Normal YELLOW [facility] Comment on above: Performed By: #### U HCGT, UMAC #### Testing performed at [address] [place] [address] Glucose Ql (U) Negative Normal NEGATIVE [facility] Comment on above: Performed By: #### U HCGT, UMAC #### Testing performed at [address] [place] [address] pH (U) 7.0 [pH] Normal 5.0-7.0 [facility] Comment on above: Performed By: #### U HCGT, UMAC #### Testing performed at [address] [place] [address] URINE HEMOGLOBIN Negative Normal NEGATIVE [facility] Comment on above: Performed By: #### U HCGT, UMAC #### Testing performed at [address] [address] URINE KETONE Negative Normal NEGATIVE [facility] Comment on above: Performed By: #### U HCGT, UMAC #### Testing performed at [address] [address] URINE LEUKOTEST Negative Normal NEGATIVE [facility] Comment on above: Performed By: #### U HCGT, UMAC #### Testing performed at [address] [address] URINE NITRATES Negative Normal NEGATIVE [facility] Comment on above: Performed By: #### U HCGT, UMAC #### Testing performed at [address] [address] URINE SPEC GRAVITY 1.010 Normal 1.010-1.025 [facility] Comment on above: Performed By: #### U HCGT, UMAC #### Testing performed at [address] [address] URINE TOTAL PROTEIN Negative Normal NEGATIVE [facility] Comment on above: Performed By: #### U HCGT, UMAC #### Testing performed at [address] [place] [address] Urobilinogen Qn (U) 0.2 {Martin'U}/dL Normal 0.2-1.0 [facility] Comment on above: Performed By: #### U HCGT, UMAC #### Testing performed at [address] [place] [address] ALCOHOL, MEDICALon 4 ALCOHOL MEDICAL < Normal <10.0 [facility] Comment on above: Result Comment: Alco hol cutoff: <10.00 mg/dL = None Detected Performed By: #### 4 [id number] #### LAB [address] [place], [place] [address] Garrett Harris M.D. [id number] DRUGS OF ABUSE SCREEN, URINE on 12-27-2023 AMPHETAMINE SCREEN, URINE Positive Abnormal None Detected [facility] Comment on above: Order Comment: Scree n results should be used for treatment purposes only. Specimen will be kept for 2 weeks, if the sample is adequate. Confirmation testing can be initiated by calling the lab within 2 weeks. Result Comment: Urin e Amphetamine Cutoff: < 1000 ng/mL = None Detected Performed By: #### 4 6965 #### LAB [address] [place] [address] Garrett Harris M.D. [id number]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 RTOXR, UNKSO #### [place] [address] PHENCYCLIDINE Negative Normal NEGATIVE [facility] Comment on above: Result Comment: <25 ng/ml CUTOFF Performed By: #### F X, RTOXR, UNKSO #### [place] [address] PROPOXYPHENE Negative Normal NEGATIVE [facility] Comment on above: Result Comment: <300 ng/ml CUTOFF Performed By: #### F X, RTOXR, UNKSO #### [place] [address] TRICYCLIC ANTIDEPRESSANTS Negative Normal NEGATIVE [facility] Comment on above: Result Comment: <300 ng/ml CUTOFF Performed By: #### F X, RTOXR, UNKSO #### [place] [address] FAX REQUESTon 05-18-2021 FAX TO [facility] Comment on above: Result Comment: Test ing performed at [place] [address] Performed By: #### R TOX, FX #### [place] [address] FAX TO [facility] Comment on above: Result Comment: Test ing performed at [place] [address] Performed By: #### F X, RTOXR, UNKSO #### [place] [address] RAPID TOX SCREEN,URINEon AMPHETAMINE Negative Normal NEGATIVE [facility] Comment on above: Result Comment: <500 ng/ml CUTOFF Performed By: #### R TOX, FX #### [place] [address] BARBITURATES Negative Normal NEGATIVE [facility] Comment on above: Result Comment: <200 ng/ml CUTOFF Performed By: #### R TOX, FX #### [place] [address] BENZODIAZEPINES Negative Normal NEGATIVE [facility] Comment on above: Result Comment: <150 ng/ml CUTOFF Performed By: #### R TOX, FX #### [place] [address] BUPRENORPHINE Negative Normal NEGATIVE [facility] Comment on above: Result Comment: <10 ng/ml CUTOFF Testing performed at [place] [address] Performed By: #### R TOX, FX #### [place] [address] CANNABINOIDS Negative Normal NEGATIVE [facility] Comment on above: Result Comment: <50 ng/ml CUTOFF Performed By: #### R TOX, FX #### [place] [address] COCAINE Negative Normal NEGATIVE [facility] Comment on above: Result Comment: <150 ng/ml CUTOFF Performed By: #### R TOX, FX #### [place] [address] METHADONE Negative Normal NEGATIVE [facility] Comment on above: Result Comment: <200 ng/ml CUTOFF Performed By: #### R TOX, FX #### [place] [address] METHAMPHETAMINE Negative Normal NEGATIVE [facility] Comment on above: Result Comment: <500 ng/ml CUTOFF Performed By: #### R TOX, FX #### [place] [address] OPIATES Negative Normal NEGATIVE [facility] Comment on above: Result Comment: <100 ng/ml CUTOFF Performed By: #### R TOX, FX #### [place] [address] OXYCODONE Negative Normal NEGATIVE [facility] Comment on above: Result Comment: <100 ng/ml CUTOFF Performed By: #### R TOX, FX #### [place] [address] PHENCYCLIDINE Negative Normal NEGATIVE [facility] Comment on above: Result Comment: <25 ng/ml CUTOFF Performed By: #### R TOX, FX #### [place] [address] PROPOXYPHENE Negative Normal NEGATIVE [facility] Comment on above: Result Comment: <300 ng/ml CUTOFF Performed By: #### R TOX, FX #### [place] [address] TRICYCLIC ANTIDEPRESSANTS Negative Normal NEGATIVE [facility] Comment on above: Result Comment: <300 ng/ml CUTOFF Performed By: #### R TOX, FX #### [place] [address] SENDOUT TESTon 04-28-2021 SENDOUT TEST SPECIMEN SENT TO REFERENCE LAB FOR TESTING [facility] Comment on above: Result Comment: [id number] Testing performed at [place] [address] Performed By: #### F X, RTOXR, UNKSO #### [place] [address] FAX REQUESTon 04-27-[address] [facility] Comment on above: Result Comment: Test ing performed at [place] [address] Performed By: #### F X, RTOXR, UNKSO #### [place] [address] RAPID TOX SCREEN,URINE WITH REFLEXon 04-27-2021 AMPHETAMINE Positive Abnormal NEGATIVE [facility] Comment on above: Result Comment: <500 ng/ml CUTOFF *Unconfirmed Screening Result* Unconfirmed screening results are to be used only for medical treatment purposes. Performed By: #### F X, RTOXR, UNKSO #### [place] [address] BARBITURATES Negative Normal NEGATIVE [facility] Comment on above: Result Comment: <200 ng/ml CUTOFF Performed By: #### F X, RTOXR, UNKSO #### [place] [address] BENZODIAZEPINES Negative Normal NEGATIVE [facility] Comment on above: Result Comment: <150 ng/ml CUTOFF Performed By: #### F X, RTOXR, UNKSO #### [place] [address] BUPRENORPHINE Negative Normal NEGATIVE [facility] Comment on above: Result Comment: <10 ng/ml CUTOFF Testing performed at [place] [address] Performed By: #### F X, RTOXR, UNKSO #### [place] [address] CANNABINOIDS Negative Normal NEGATIVE [facility] Comment on above: Result Comment: <50 ng/ml CUTOFF Performed By: #### F X, RTOXR, UNKSO #### [place] [address] COCAINE Negative Normal NEGATIVE [facility] Comment on above: Result Comment: <150 ng/ml CUTOFF Performed By: #### F X, RTOXR, UNKSO #### [place] [address] METHADONE Negative Normal NEGATIVE [facility] Comment on above: Result Comment: <200 ng/ml CUTOFF Performed By: #### F X, RTOXR, UNKSO #### [place] [address] METHAMPHETAMINE Positive Abnormal NEGATIVE [facility] Comment on above: Result Comment: <500 ng/ml CUTOFF *Unconfirmed Screening Result* Unconfirmed screening results are to be used only for medical treatment purposes. Performed By: #### F X, RTOXR, UNKSO #### [place] [address] OPIATES Negative Normal NEGATIVE [facility] Comment on above: Result Comment: <100 ng/ml CUTOFF Performed By: #### F X, RTOXR, UNKSO #### [place] [address] OXYCODONE Negative Normal NEGATIVE [facility] Comment on above: Result Comment: <100 ng/ml CUTOFF Performed By: #### F X, RTOXR, UNKSO #### [place] [address] PHENCYCLIDINE Negative Normal NEGATIVE [facility] Comment on above: Result Comment: <25 ng/ml CUTOFF Performed By: #### F X, RTOXR, UNKSO #### [place] [address] PROPOXYPHENE Negative Normal NEGATIVE [facility] Comment on above: Result Comment: <300 ng/ml CUTOFF Performed By: #### F X, RTOXR, UNKSO #### [place] [address] TRICYCLIC ANTIDEPRESSANTS Negative Normal NEGATIVE [facility] Comment on above: Result Comment: <300 ng/ml CUTOFF Performed By: #### F X, RTOXR, UNKSO #### [place] [address] ABO/RH(D)on 02-17-2021 ABO/RH(D) ABO/RH(D) A POSITIVE Testing performed at [place] [address] Normal [facility] Comment on above: Performed By: #### A BR #### [place] [address] ANTIBODY SCREENon 02-17-2021 Antibody screen ANTIBODY SCREEN NEGATIVE WORKUP EXPIRES 02/20/2021,2359 Testing performed at [place] [address] Normal [facility] Comment on above: Performed By: #### R ESCRN #### [place] [address] FAX REQUESTon 02-17-2021 FAX TO [phone] AND [phone] [facility] Comment on above: Result Comment: Test ing performed at [place] [address] Performed By: #### F X #### [place] [address] FAX TO [phone] AND [phone] [facility] Comment on above: Result Comment: Test ing performed at [place] [address] Performed By: #### F X, RTOXR, UNKSO #### [place] [address] BMPon 11-05-2020 Anion gap [Moles/Vol] 10 mmol/L 10 - 20 mmol/L [facility] Calcium [Mass/Vol] 9.1 mg/dL 8.4 - 10. 2 mg/dL [facility] Chloride [Moles/Vol] 100 mmol/L 98 - 10 8 mmol/L [facility] Creatinine [Mass/Vol] 0.77 mg/dL 0.40 - 1.10 [facility] GFR/1.73 sq M predicted among non-blacks MDRD (S/P/Bld) [Vol rate/Area] The eGFR should be used for monitoring renal function only and not for medication dosing. [facility] GFR/1.73 sq M.predicted CKD-EPI (S/P/Bld) [Vol rate/Area] 103 >=60 mL/min/1.73 m2 [facility] Glucose [Mass/Vol] 103 mg/dL High 65 - 99 mg/dL [facility] oHeal HCO3 [Moles/Vol] 28 mmol/L 21 - 32 mmol/L [facility] Potassium [Moles/Vol] 3.5 mmol/L 3.5 - 5.1 mmol/L [facility] Sodium [Moles/Vol] 134 mmol/L Low 135 - 145 mmol/L [facility] Urea nitrogen [Mass/Vol] 12 mg/dL 8 - 25 mg/dL [facility] Urea nitrogen/Creatinine [Mass ratio] 15.6 mg/mg [facility] CBC WITH AUTO DIFFERENTIALon 11-05-2020 Basophils (Bld) [#/Vol] 0.02 10*3/uL [facility] Basophils/100 WBC (Bld) 0.2 % [facility] Eosinophils (Bld) [#/Vol] 0.04 10*3/uL [facility] Eosinophils/100 WBC (Bld) 0.3 % [facility] Erythrocyte distribution width (RBC) [Entitic vol] 12.7 % 11.6 - 14.8 % [facility] Hematocrit (Bld) [Volume fraction] 37.8 % 36.0 - 46.0 % [facility] Hemoglobin (Bld) [Mass/Vol] 12.4 g/dL 12.0 - 16.0 g/dL [facility] Immature granulocytes (Bld) [#/Vol] 0.01 10*3/uL [facility] Immature granulocytes/100 WBC (Bld) 0.10 % [facility] Comment on above: The IG parameter is the percentage of metamyelocytes, myelocytes and promyelocytes. An immature granulocyte count (IG) of 1% or more suggests the possibility of infection, an IG count of 3% is very likely related to an infection. Interpretation and review of laboratory results Abnormal [facility] Lymphocytes (Bld) [#/Vol] 1.30 10*3/uL [facility] Lymphocytes/100 WBC (Bld) 9.8 % [facility] MCH (RBC) [Entitic mass] 29.2 pg 26.0 - 34.0 pg [facility] MCHC (RBC) [Mass/Vol] 32.8 g/dL 31.0 - 37.0 g/dL [facility] MCV (RBC) [Entitic vol] 88.9 fL 80.0 - 100.0 fL [facility] Monocytes (Bld) [#/Vol] 0.53 10*3/uL [facility] Monocytes/100 WBC (Bld) 4.0 % [facility] Neutrophils (Bld) [#/Vol] 11.39 10*3/uL High [facility] Neutrophils/100 WBC (Bld) 85.6 % [facility] Platelet mean volume (Bld) [Entitic vol] 8.7 fL Low 9.4 - 12.4 fL [facility] Platelets (Bld) [#/Vol] 319 10*3/uL [facility] RBC (Bld) [#/Vol] 4.25 10*6/uL [facility] WBC (Bld) [#/Vol] 13.29 10*3/uL High [facility] Hepatic Function Panel (LFT) on 11-05-2020 Albumin [Mass/Vol] 3.7 g/dL 3.2 - 5.2 g/dL [facility] ALP [Catalytic activity/Vol] 91 U/L 40 - 140 U/L [facility] ALT [Catalytic activity/Vol] 40 U/L 14 - 65 U/L [facility] AST [Catalytic activity/Vol] 25 U/L 0 - 45 U/L [facility] Bilirubin [Mass/Vol] 0.8 mg/dL 0.0 - 1 .3 mg/dL [facility] Bilirubin.conjugated [Mass/Vol] 0.2 mg/dL 0.0 - 0.4 mg/dL [facility] Interpretation and review of laboratory results Normal [facility] Protein [Mass/Vol] 8.0 g/dL 6.0 - 8.0 g/dL [facility] Lipaseon 11-05-2020 Lipase [Catalytic activity/Vol] 51 U/L Low 73 - 393 U/L [facility] Otheron 11-05-2020 Interpretation and review of laboratory results Abnormal [facility] URINALYSISon 11-05-2020 Bacteria Auto Ql (U) Many Abnormal None Se en /hpf [facility] Bilirubin Ql (U) Positive Abnormal Negative [facility] Comment on above: False positive urine bilirubins can occur in the setting of a large amount of hemoglobin and secondary to medications including anti-inflammatory agents, rifampin, and pyridium. Clarity Refractometry automated (U) Cloudy Abnormal Clear [facility] Color (U) Yellow Colorless, Yellow [facility] Epithelial cells.squamous Auto (Urine sed) [#/Area] 4 [facility] Glucose Auto test strip (U) [Mass/Vol] Negative Negative mg/dL [facility] Hemoglobin Auto test strip Ql (U) Negative Negative [facility] Interpretation and review of laboratory results Abnormal [facility] Ketones (U) [Mass/Vol] Negative Negative mg/dL [facility] Leukocyte esterase Auto test strip Ql (U) Negative Negative [facility] Nitrite Auto test strip Ql (U) Negative Negative [facility] pH (U) 5.0 [pH] [facility] Protein (U) [Mass/Vol] 30 Abnormal Negative mg/dL [facility] Comment on above: False positive resul ts may occur in urines with large amounts of hemoglobin, pH greater than 8.0, contrast medium, or disinfectants including ammonium compounds. Specific gravity (U) [Rel density] >=1.030 High [facility] Urobilinogen (U) [Mass/Vol] <2.0 <2.0 mg/dL [facility] WBC Auto (Urine sed) [#/Area] 30 High [facility] Microscopic examination is performed on all urinalysis samples and only positive findings are reported. The test for blood on the chemical analytic portion of urinalysis may also be positive due to hemoglobinuria and myoglobinuria and if red blood cells are present they are quantified by microscopic examination. [facility] Urine Pregnancyon 11-05-2020 HCG ( test) Ql (U) Positive Abnormal Negative [facility] Interpretation and review of laboratory results Abnormal [facility] XR Chest 1 Viewon 11-05-2020 1. No acute cardiopulmonary abnormality. Populr Workstation ID: [id number] [facility] EXAMINATION: XR CHES T PA/AP 11/05/2020 2:15 AM HISTORY: ORDERING SYSTEM PROVIDED HISTORY: Cough, TECHNOLOGIST PROVIDED HISTORY: Illness/Other Reason for Exam: Cough Cancer History: U Surgery, Radiation History: U Encounter Type: Initial Additional Signs and Symptoms: Hx of Hepatitis C ORDERING SYSTEM PROVIDED DIAGNOSIS CODES: COMPARISON: Chest and left rib series dated 08/27/2018. FINDINGS: One view of the chest was obtained. The cardiac silhouette is normal in size. The lungs are clear. There is no significant pneumothorax or pleural effusion. No acute osseous abnormality is seen. [facility] Interface, Rad In Fuji Speechq - 11/05/2020 3:00 AM EDT EXAMINATION: XR CHEST PA/AP 11/05/2020 2:15 AM HISTORY: ORDERING SYSTEM PROVIDED HISTORY: Cough, TECHNOLOGIST PROVIDED HISTORY: Illness/Other Reason for Exam: Cough Cancer History: U Surgery, Radiation History: U Encounter Type: Initial Additional Signs and Symptoms: Hx of Hepatitis C ORDERING SYSTEM PROVIDED DIAGNOSIS CODES: COMPARISON: Chest and left rib series dated 08/27/2018. FINDINGS: One view of the chest was obtained. The cardiac silhouette is normal in size. The lungs are clear. There is no significant pneumothorax or pleural effusion. No acute osseous abnormality is seen. IMPRESSION: 1. No acute cardiopulmonary abnormality. [facility]/ReDigi Workstation ID: [id number] [facility] RIBS W/ PA CXRon 08-28-2018 RIBS W/ PA CXR Final Report Accession No: [id number] Performed: Aug 27 2018 10:29PM Examination: LEFT RIBS W/ PA CXR EXAM: RIBS W/ PA CXR LEFT COMPARISON: None available. CLINICAL INDICATION: Fall, left rib pain. FINDINGS: The cardiomediastinal silhouette is within normal limits. No focal consolidation. No pleural effusion. No pneumothorax. Acute nondisplaced left 8th rib fracture. IMPRESSION: Acute nondisplaced left eighth rib fracture. No acute cardiopulmonary abnormality. Interpreting Physician: ABIOLA FLANNERY M.D. Trans: n/a : cc: Normal [facility] Alcohol, Medicalon 8 Ethanol mass conc Negative Normal [facility] Comment on above: Performed By: #### H CGQL, ALC #### Unless otherwise noted, all testing performed by [place] [address] CLIA: [id number] Dowel Maker: Garrett Harris M.D. HCG, Qualitativeon 8 HCG, Qualitative Negative Normal [facility] Comment on above: Result Comment: Nega tive: The result is less than or equal to 5 mIU/mL of HCG. Performed By: #### H CGQL, ALC #### Unless otherwise noted, all testing performed by [address] [place] [address] CLIA: [id number] Dowel Maker: Garrett Harris M.D. CBC(NO DIFF)on 12-19-2017 Erythrocyte distribution width Auto Ratio (RBC) 14.9 % High 11.5-14.5 [facility] Erythrocytes (RBC) 3.96 /cmm Low 4.0-5.4 [facility] Hematocrit (HCT) 35.3 % Low 36.0-48.0 [facility] Hemoglobin mass conc (Bld) 12.7 g/dL Normal 12.0-16.0 [facility] MCH 32.1 pg Normal 26.0-35.0 [facility] MCHC mass conc (RBC) 36.1 g/dL Normal 27.0-37.0 [facility] MCV 89.1 fL Normal 80.0-100.0 [facility] Platelet mean volume (PMV) 7.2 fL Low 7.4-11.0 [facility] Platelets 184 /cmm Normal 130.0-400.0 [facility] WBC (Leukocytes) 4.5 /cmm Normal 3.6-11.0 [facility] HERPES I/II, IGMon 8 HSV, IGM I/II 1.50 Ratio High 0.00-0.90 [facility] Comment on above: Result Comment: (NOT E) Negative <0.91 Equivocal 0.91 - 1.09 Positive >1.09PERFORMED AT [facility] Performed By: #### L HERM ####Testing performed at [facility], [id number] [place] [id number] MAGNESIUMon 12-19-2017 Magnesium 2.1 mg/dL Normal 1.6-2.3 [facility] NURSING NOTEon 12-19-2017 [facility] NOTES Normal [facility] RENAL PANEL,FASTINGon 2017 Albumin 3.5 G/dl Normal 3.5-5.0 [facility] BUN (urea nitrogen) 10 mg/dL Normal 7-20 [facility] Calcium 8.9 mg/dL Normal 8.4-10.2 [facility] Chloride 103 mmol/L Normal 98-107 [facility] CO2 30 mmol/L Normal 22-30 [facility] Creatinine 0.7 mg/dL Normal 0.7-1.2 [facility] eGFR (non-black) Average GFR for 20-2 9 years old = 116. Normal [facility] Comment on above: Result Comment: Contact Center Agent jayson Kidney disease, GFR = <60.Kidney failure, GFR = <15.The GFR estimate is not adjusted for extreme body surface area or acute process, nor has it been validated for women or ethnic groups other than and . eGFR (non-black) mL/min/{1.73_m2} Normal [facility] Glucose mass conc 82 mg/dL Normal 70-100 [facility] Comment on above: Result Comment: NORM AL <100 mg/dLPREDIABETES 101-126 mg/dLDIABETES 126 mg/dL or higher PHOSPHOROUS 5.3 MG/DL High 2.5-4.5 [facility] Potassium molar conc 4.0 mmol/L Normal 3.5-5.1 [facility] Sodium 139 mmol/L Normal 137-145 [facility] CBC(NO DIFF)on 12-18-2017 Erythrocyte distribution width Auto Ratio (RBC) 14.6 % High 11.5-14.5 [facility] Erythrocytes (RBC) 3.82 /cmm Low 4.0-5.4 [facility] Hematocrit (HCT) 33.8 % Low 36.0-48.0 [facility] Hemoglobin mass conc (Bld) 12.3 g/dL Normal 12.0-16.0 [facility] MCH 32.3 pg Normal 26.0-35.0 [facility] MCHC mass conc (RBC) 36.5 g/dL Normal 27.0-37.0 [facility] MCV 88.5 fL Normal 80.0-100.0 [facility] Platelet mean volume (PMV) 7.5 fL Normal 7.4-11.0 [facility] Platelets 155 /cmm Normal 130.0-400.0 [facility] WBC (Leukocytes) 4.7 /cmm Normal 3.6-11.0 [facility] DISCH SUMMon 12-18-2017 [facility] NOTES Normal [facility] MAGNESIUMon 12-18-2017 Magnesium 2.1 mg/dL Normal 1.6-2.3 [facility] NURSING NOTEon 12-18-2017 [facility] NOTES Normal [facility] NOT[facility] Normal [facility] NOT[facility] Normal [facility] NOTES Normal [facility] PROGRESSon 12-18-2017 [facility] NOTES Normal [facility] NOT[facility] Normal [facility] RENAL PANEL,FASTINGon 2017 Albumin 3.3 G/dl Low 3.5-5.0 [facility] BUN (urea nitrogen) 10 mg/dL Normal 7-20 [facility] Calcium 8.7 mg/dL Normal 8.4-10.2 [facility] Chloride 104 mmol/L Normal 98-107 [facility] CO2 28 mmol/L Normal 22-30 [facility] Creatinine 0.7 mg/dL Normal 0.7-1.2 [facility] eGFR (non-black) Average GFR for 20-2 9 years old = 116. Normal [facility] Comment on above: Result Comment: Contact Center Agent jayson Kidney disease, GFR = <60.Kidney failure, GFR = <15.The GFR estimate is not adjusted for extreme body surface area or acute process, nor has it been validated for women or ethnic groups other than and . eGFR (non-black) mL/min/{1.73_m2} Normal [facility] Glucose mass conc 74 mg/dL Normal 70-100 [facility] Comment on above: Result Comment: NORM AL <100 mg/dLPREDIABETES 101-126 mg/dLDIABETES 126 mg/dL or higher PHOSPHOROUS 4.6 MG/DL High 2.5-4.5 [facility] Potassium molar conc 4.0 mmol/L Normal 3.5-5.1 [facility] Sodium 137 mmol/L Normal 137-145 [facility] BMP FASTINGon 12-17-2017 Anion gap 4 mmol/L Low 8-16 [facility] Comment on above: Performed By: #### A CBC ####Testing performed at [address] [address] BUN (urea nitrogen) 10 mg/dL Normal 7-20 [facility] Comment on above: Performed By: #### A CBC ####Testing performed at [address] [place] [address] Calcium 8.7 mg/dL Normal 8.4-10.2 [facility] Comment on above: Performed By: #### A CBC ####Testing performed at [address] [address] Chloride 107 mmol/L Normal 98-107 [facility] Comment on above: Performed By: #### A CBC ####Testing performed at [place] [id number] CO2 26 mmol/L Normal 22-30 [facility] Comment on above: Performed By: #### A CBC ####Testing performed at [place] [id number] Creatinine 0.7 mg/dL Normal 0.7-1.2 [facility] Comment on above: Performed By: #### A CBC ####Testing performed at [place] [id number] eGFR (non-black) mL/min/{1.73_m2} Normal [facility] Comment on above: Performed By: #### A CBC ####Testing performed at [place] [id number] eGFR (non-black) Average GFR for 20-2 9 years old = 116. Normal [facility] Comment on above: Result Comment: Contact Center Agent jayson Kidney disease, GFR = <60.Kidney failure, GFR = <15.The GFR estimate is not adjusted for extreme body surface area or acute process, nor has it been validated for women or ethnic groups other than and . Performed By: #### A CBC ####Testing performed at [place] [id number] Glucose mass conc 74 mg/dL Normal 70-100 [facility] Comment on above: Result Comment: NORM AL <100 mg/dLPREDIABETES 101-126 mg/dLDIABETES 126 mg/dL or higher Performed By: #### A CBC ####Testing performed at [address] [address] Potassium molar conc 3.7 mmol/L Normal 3.5-5.1 [facility] Comment on above: Performed By: #### A CBC ####Testing performed at [address] [address] Sodium 137 mmol/L Normal 137-145 [facility] Comment on above: Performed By: #### A CBC ####Testing performed at [address] [address] CBCon 12-17-2017 ABSOLUTE BAS 0.0 X10 Normal [facility] Comment on above: Performed By: #### A CBC ####Testing performed at [address] [address] ABSOLUTE EOS 0.10 X10 Normal [facility] Comment on above: Performed By: #### A CBC ####Testing performed at [address] [address] Basophils/100 WBC Auto (Bld) 0.5 % Normal 0.0-2.0 [facility] Comment on above: Performed By: #### A CBC ####Testing performed at [address] [address] DTYPE AUTO DIFF Normal [facility] Comment on above: Performed By: #### A CBC ####Testing performed at [address] [address] Eosinophils/100 leukocytes 1.2 % Normal 0.0-11.0 [facility] Comment on above: Performed By: #### A CBC ####Testing performed at [address] [address] Lymphocytes 2.50 X10 Normal [facility] Comment on above: Performed By: #### A CBC ####Testing performed at [address] [address] Lymphocytes/100 leukocytes 51.9 % Normal 20.0-55.0 [facility] Comment on above: Performed By: #### A CBC ####Testing performed at [address] [address] Monocytes 0.5 X10 Normal [facility] Comment on above: Performed By: #### A CBC ####[place] [address] Monocytes/100 leukocytes 9.9 % Normal 0.0-10.0 [facility] Comment on above: Performed By: #### A CBC ####[place] [address] Neutrophils 1.8 x10 Normal 1.0-7.0 [facility] Comment on above: Performed By: #### A CBC ####[place] [address] Neutrophils/100 leukocytes 36.5 % Low 37.0-75.0 [facility] Comment on above: Performed By: #### A CBC ####[place] [address] Erythrocyte distribution width Auto Ratio (RBC) 14.7 % High 11.5-14.5 [facility] Comment on above: Performed By: #### A CBC ####[place] [address] Erythrocytes (RBC) 3.88 /cmm Low 4.0-5.4 [facility] Comment on above: Performed By: #### A CBC ####Testing performed at [place] [id number] Hematocrit (HCT) 34.6 % Low 36.0-48.0 [facility] Comment on above: Performed By: #### A CBC ####[place] [address] Hemoglobin mass conc (Bld) 12.3 g/dL Normal 12.0-16.0 [facility] Comment on above: Performed By: #### A CBC ####[place] [address] MCH 31.8 pg Normal 26.0-35.0 [facility] Comment on above: Performed By: #### A CBC ####[place] [address] MCHC mass conc (RBC) 35.7 g/dL Normal 27.0-37.0 [facility] Comment on above: Performed By: #### A CBC ####[place] [address] MCV 89.2 fL Normal 80.0-100.0 [facility] Comment on above: Performed By: #### A CBC ####[place] [address] Platelet mean volume (PMV) 7.8 fL Normal 7.4-11.0 [facility] Comment on above: Performed By: #### A CBC ####[place] [address] Platelets 149 /cmm Normal 130.0-400.0 [facility] Comment on above: Performed By: #### A CBC ####[place] [address] WBC (Leukocytes) 4.8 /cmm Normal 3.6-11.0 [facility] Comment on above: Performed By: #### A CBC ####[place] [address] [address] FACIAL WITH CONTRAST EXAM: CT FACIAL WITH CONTRAST CLINICAL STATEMENT: Pain and swelling in the left maxilla and left mandible. COMPARISON: None. TECHNIQUE: Contrast enhanced CT maxillofacial with sagittal and coronal reformations.Dose reduction techniques were achieved by using automated exposure control and/or adjustment of mA and/or kV according to patient size and/or use of iterative reconstruction technique.FINDINGS: From the level of the xiphoid process inferiorly to the submandibular space, there is asymmetric subcutaneous cellulitis and skin thickening that is predominantly seen along the left aspect of the mandible. There is however no discrete periosteal abscess or subcutaneous abscess collection. Location suggests periodontal origin although no definitive periapical abscess or evidence of osteomyelitis. The paranasal sinuses are clear with a leftward deviation of the nasal septum noted. The ostia of the maxillary sinuses and ethmoid infundibulum are patent bilaterally. The mastoid air cells are clear. Inner ear cavities are clear. Parotid glands appear symmetric and normal bilaterally. Submandibular glands are also symmetric and appear unremarkable. There are mildly enlarged submandibular and level 2 lymph nodes with the largest submandibular lymph node measuring 1.0 x 1.0 cm on (series 4 image 7) and a level 2 lymph node measuring 1.6 x 1.0 cm (series 4 image 23).IMPRESSION: 1. Cellulitis from the level of the zygomatic arch inferiorly to the submandibular space predominantly seen along the left aspect of the mandible with no soft tissue gas collections, abscess or appreciable periosteal abscess.2. Etiology is not identified. Paranasal sinuses are clear. Mastoid air cells are clear. Periodontal etiology is possible however there is no definitive periapical abscess.3. Mildly enlarged submandibular and left level 2 lymph nodes, presumably reactive. Normal [facility] HISTORY AND PHYSICALon 12-17 [facility] NOTES Normal [facility] MRSA SCREENon 12-17-2017 MRSA SCREEN Negative Normal [facility] Comment on above: Performed By: #### M RSAST ####[place] [address] STAPH AUREUS SCREEN Negative Normal [facility] Comment on above: Result Comment: TEST ING PERFORMED BY PCRTesting performed at [place] [address] Performed By: #### M RSAST ####[place] [address] NURSING NOTEon 12-17-2017 [facility] NOTES Normal [facility] NOTES Normal [facility] NOTES Normal [facility] NOTES Normal [facility] BMP FASTINGon 12-16-2017 Anion gap 8 mmol/L Normal 8-16 [facility] BUN (urea nitrogen) 12 mg/dL Normal 7-20 [facility] Calcium 9.3 mg/dL Normal 8.4-10.2 [facility] Chloride 105 mmol/L Normal 98-107 [facility] CO2 26 mmol/L Normal 22-30 [facility] Creatinine 0.7 mg/dL Normal 0.7-1.2 [facility] eGFR (non-black) Average GFR for 20-2 9 years old = 116. Normal [facility] Comment on above: Result Comment: Contact Center Agent jayson Kidney disease, GFR = <60.Kidney failure, GFR = <15.The GFR estimate is not adjusted for extreme body surface area or acute process, nor has it been validated for women or ethnic groups other than and . eGFR (non-black) mL/min/{1.73_m2} Normal [facility] Glucose mass conc 89 mg/dL Normal 70-100 [facility] Comment on above: Result Comment: NORM AL <100 mg/dLPREDIABETES 101-126 mg/dLDIABETES 126 mg/dL or higher Potassium molar conc 3.9 mmol/L Normal 3.5-5.1 [facility] Sodium 139 mmol/L Normal 137-145 [facility] CBCon 12-16-2017 ABSOLUTE BAS 0.0 X10 Normal [facility] ABSOLUTE EOS 0.00 X10 Normal [facility] Basophils/100 WBC Auto (Bld) 0.5 % Normal 0.0-2.0 [facility] DTYPE AUTO DIFF Normal [facility] Eosinophils/100 leukocytes 0.3 % Normal 0.0-11.0 [facility] Lymphocytes 1.70 X10 Normal [facility] Lymphocytes/100 leukocytes 34.7 % Normal 20.0-55.0 [facility] Monocytes 0.5 X10 Normal [facility] Monocytes/100 leukocytes 10.5 % High 0.0-10.0 [facility] Neutrophils 2.7 x10 Normal 1.0-7.0 [facility] Neutrophils/100 leukocytes 54.0 % Normal 37.0-75.0 [facility] Erythrocyte distribution width Auto Ratio (RBC) 15.0 % High 11.5-14.5 [facility] Erythrocytes (RBC) 4.35 /cmm Normal 4.0-5.4 [facility] Hematocrit (HCT) 38.9 % Normal 36.0-48.0 [facility] Hemoglobin mass conc (Bld) 13.9 g/dL Normal 12.0-16.0 [facility] MCH 31.8 pg Normal 26.0-35.0 [facility] MCHC mass conc (RBC) 35.6 g/dL Normal 27.0-37.0 [facility] MCV 89.4 fL Normal 80.0-100.0 [facility] Platelet mean volume (PMV) 7.9 fL Normal 7.4-11.0 [facility] Platelets 152 /cmm Normal 130.0-400.0 [facility] WBC (Leukocytes) 4.9 /cmm Normal 3.6-11.0 [facility] ED NOTEon 12-16-2017 [facility] NOTES Normal [facility] NOTES Normal [facility] NOTES Normal [facility] NOTES Normal [facility] ED PROVIDERon 12-16-2017 [facility] NOTES Normal [facility] ESRon 12-16-2017 Erythrocyte sedimentation rate 3 mm/h Normal [facility] NURSING NOTEon 12-16-2017 [facility] NOTES Normal [facility] NOTES Normal [facility] PROGRESSon 12-16-2017 [facility] NOTES Normal [facility] ED PROVIDERon 12-13-2017 [facility] NOTES Normal [facility] NOTES Normal [facility] Basic Metabolic Panelon 09-08 Calcium 8.8 mg/dL Normal 8.4-10.2 [facility] Comment on above: Performed By: #### C HEM8, HEPF #### Unless otherwise noted, all testing performed by [place] [address] CLIA: [id number] Dowel Maker: Garrett Harris M.D. Chloride 103 mmol/L Normal 98-108 [facility] Comment on above: Performed By: #### C HEM8, HEPF #### Unless otherwise noted, all testing performed by [place] [address] CLIA: [id number] Dowel Maker: Garrett Harris M.D. CO2 28 mmol/L Normal 21-32 [facility] Comment on above: Performed By: #### C HEM8, HEPF #### Unless otherwise noted, all testing performed by [place] [address] CLIA: [id number] Dowel Maker: Garrett Harris M.D. Creatinine 0.65 mg/dL Normal 0.40-1.10 [facility] Comment on above: Performed By: #### C HEM8, HEPF #### Unless otherwise noted, all testing performed by [place] [address] CLIA: [id number] Dowel Maker: Garrett Harris M.D. eGFR (black) mL/min/{1.73_m2} Normal [place] Comment on above: Result Comment: Afri can [place] GFR Calc Performed By: #### C HEM8, HEPF #### Unless otherwise noted, all testing performed by [place] [address] CLIA: [id number] Dowel Maker: Garrett Harris M.D. eGFR (non-black) mL/min/{1.73_m2} Normal [facility] Comment on above: Result Comment: Non- GFR Calc eGFR is an estimated Glomerular Filtration Rate based on the value of the patient's serum creatinine. In outpatients, eGFR should be used as a helpful tool in screening for CKD. In inpatients or patients with acute renal failure, eGFR represents the GFR at the moment of the draw and should be used with caution. Performed By: #### C HEM8, HEPF #### Unless otherwise noted, all testing performed by [place] [id number] CLIA: [id number] [employer]el Maker: Garrett Harris M.D. Glucose 91 mg/dL Invalid Interpretation Code 70 - 99 mg/dL [facility] Glucose mass conc 91 mg/dL Normal 70-99 [facility] Comment on above: Result Comment: This test result might be falsely depressed or falsely elevated on samples drawn from patients taking Sulfasalazine and Sulfapyridine. Venipuncture should occur prior to taking either of these drugs. Performed By: #### C HEM8, HEPF #### Unless otherwise noted, all testing performed by [place] [address] CLIA: [id number] [employer] Maker: Garrett Harris M.D. Potassium 3.8 mmol/L Normal 3.5-5.1 [facility] Comment on above: Performed By: #### C HEM8, HEPF #### Unless otherwise noted, all testing performed by [place] [address] CLIA: [id number] [employer] Maker: Garrett Harris M.D. Sodium 139 mmol/L Normal 135-145 [facility] Comment on above: Performed By: #### C HEM8, HEPF #### Unless otherwise noted, all testing performed by [place] [address] CLIA: [id number] [employer]el Maker: Garrett Harris M.D. Urea nitrogen 13 mg/dL Normal 8-25 [facility] Comment on above: Performed By: #### C HEM8, HEPF #### Unless otherwise noted, all testing performed by [place] [address] CLIA: [id number] [employer]el Maker: Garrett Harris M.D. Hepatic Function Panelon Alanine aminotransferase (ALT) 12 U/L Low 14-65 [facility] Comment on above: Result Comment: This test result might be falsely depressed or falsely elevated on samples drawn from patients taking Sulfasalazine and Sulfapyridine. Venipuncture should occur prior to taking either of these drugs. Performed By: #### C HEM8, HEPF #### Unless otherwise noted, all testing performed by [place] [phone] CLIA: [id number] [employer] Maker: Garrett Harris M.D. Albumin 4.0 g/dL Normal 3.2-5.2 [facility] Comment on above: Performed By: #### C HEM8, HEPF #### Unless otherwise noted, all testing performed by [place] [address] CLIA: [id number] [employer] Maker: Garrett Harris M.D. Alkaline phosphatase (ALP) 66 U/L Normal 40-140 [facility] Comment on above: Performed By: #### C HEM8, HEPF #### Unless otherwise noted, all testing performed by [place] [address] CLIA: [id number] [employer]el Maker: Garrett Harris M.D. Aspartate aminotransferase (AST) 10 U/L Normal 0-45 [facility] Comment on above: Result Comment: This test result might be falsely depressed or falsely elevated on samples drawn from patients taking Sulfasalazine and Sulfapyridine. Venipuncture should occur prior to taking either of these drugs. Performed By: #### C HEM8, HEPF #### Unless otherwise noted, all testing performed by [place] [address] CLIA: [id number] [employer] Maker: Garrett Harris M.D. Bilirubin (total) 0.1 mg/dL Invalid Interpretation Code 0 - 0.4 mg/dL [facility] Bilirubin mass conc 0.8 mg/dL Normal 0.3-1.2 [facility] Comment on above: Performed By: #### C HEM8, HEPF #### Unless otherwise noted, all testing performed by [place] [address] CLIA: [id number] [employer]el Maker: Garrett Harris M.D. Bilirubin.direct mass conc 0.1 mg/dL Normal 0.0-0.4 [facility] Comment on above: Performed By: #### C HEM8, HEPF #### Unless otherwise noted, all testing performed by [place] [address] CLIA: [id number] Dowel Maker: Garrett Harris M.D. Interpretation and review of laboratory results Abnormal Invalid Interpretation Code [facility] Protein 7.7 g/dL Normal 6.0-8.0 [facility] Comment on above: Performed By: #### C HEM8, HEPF #### Unless otherwise noted, all testing performed by [place] [address] CLIA: [id number] [employer] Maker: Garrett Harris M.D. Urine, bilirubin presence 0.8 mg/dL Invalid Interpretation Code 0.3 - 1.2 mg/dL [facility] Vital Signs Date Time Vital Sign Value Performing Clinician Facility 09-02-2024 06:06-0500 Diastolic blood pressure 59 mm[Hg] Ivelisse Marker DO Work Phone: [facility] 09-02-2024 06:06-0500 Heart rate 89 /min Ivelisse Marker DO Work Phone: [facility] 09-02-2024 06:06-0500 Respiratory rate 16 /min Ivelisse Marker DO Work Phone: [facility] 09-02-2024 06:06-0500 Systolic blood pressure 98 mm[Hg] Ivelisse Marker DO Work Phone: [facility] 09-02-2024 05:24-0500 SaO2% (BldA) [Mass fraction] 98 % Ivelisse Marker DO Work Phone: [facility] 09-01-2024 23:46-0500 Body height 165.1 cm Ivelisse Marker DO Work Phone: [facility] 09-01-2024 23:45-0500 Body temperature 97.11 [degF] Ivelisse Marker DO Work Phone: [facility] 10-13-2023 14:57-0500 Body height 165.1 cm Yogi Thompson MD Work Phone: [facility] 10-13-2023 14:57-0500 Body mass index (BMI) [Ratio] 29.64 kg/m2 Yogi Thompson MD Work Phone: [facility] 10-13-2023 14:57-0500 Body temperature 98.2 [degF] Yogi Thompson MD Work Phone: [facility] 10-13-2023 14:57-0500 Body weight 80.79 kg Yogi Thompson MD Work Phone: [facility] 10-13-2023 14:57-0500 Diastolic blood pressure 60 mm[Hg] Yogi Thompson MD Work Phone: [facility] 10-13-2023 14:57-0500 Heart rate 87 /min Yogi Thompson MD Work Phone: [facility] 10-13-2023 14:57-0500 SaO2% (BldA) [Mass fraction] 97 % Yogi Thompson MD Work Phone: [facility] 10-13-2023 14:57-0500 Systolic blood pressure 95 mm[Hg] Yogi Thompson MD Work Phone: [facility] 09-15-2023 14:53-0500 Body height 165.1 cm Yogi Thompson MD Work Phone: [facility] 09-15-2023 14:53-0500 Body mass index (BMI) [Ratio] 27.54 kg/m2 Yogi Thompson MD Work Phone: [facility] 09-15-2023 14:53-0500 Body temperature 98.6 [degF] Yogi Thompson MD Work Phone: [facility] 09-15-2023 14:53-0500 Body weight 75.07 kg Yogi Thompson MD Work Phone: [facility] 09-15-2023 14:53-0500 Diastolic blood pressure 68 mm[Hg] Yogi Thompson MD Work Phone: [facility] 09-15-2023 14:53-0500 Heart rate 91 /min Yogi Thompson MD Work Phone: [facility] 09-15-2023 14:53-0500 SaO2% (BldA) [Mass fraction] 97 % Yogi Thompson MD Work Phone: [facility] 09-15-2023 14:53-0500 Systolic blood pressure 97 mm[Hg] Yogi Thompson MD Work Phone: [facility] 03-13-2021 14:13-0400 Diastolic blood pressure 86 mm[Hg] Saumya Irby MD Work Phone: [employer] Work Phone: 03-13-2021 14:13-0400 Heart rate 115 /min Saumya Irby MD Work Phone: [employer] Work Phone: 03-13-2021 14:13-0400 Respiratory rate 20 /min Saumya Irby MD Work Phone: [employer] Work Phone: 03-13-2021 14:13-0400 SaO2% (BldA) [Mass fraction] 96 % Saumya Irby MD Work Phone: [employer] Work Phone: 03-13-2021 14:13-0400 Systolic blood pressure 126 mm[Hg] Saumya Irby MD Work Phone: [employer] Work Phone: 11-05-2020 03:22-0400 BP Diastolic 71 mm[Hg] [facility] 11-05-2020 03:22-0400 BP Systolic 110 mm[Hg] [facility] 11-05-2020 03:22-0400 Pulse (Heart Rate) 94 /min [facility] 11-05-2020 03:22-0400 Pulse Oximetry 98 % [facility] 11-05-2020 03:22-0400 Respiratory Rate 16 /min [facility] 11-05-2020 01:18-0400 BMI (Body Mass Index) 25.79 kg/m2 [facility] 11-05-2020 01:18-0400 Body Temperature 97.39 [degF] [facility] 11-05-2020 01:18-0400 Body weight 70.31 kg [facility] 11-05-2020 01:18-0400 Height 165.1 cm [facility] 07-18-2020 01:52-0500 BP Diastolic 70 mm[Hg] [facility] 07-18-2020 01:52-0500 BP Systolic 104 mm[Hg] [facility] 07-18-2020 01:52-0500 Pulse (Heart Rate) 118 /min [facility] 07-18-2020 01:52-0500 Pulse Oximetry 99 % [facility] 07-18-2020 01:52-0500 Respiratory Rate 16 /min [facility] 07-17-2020 23:31-0500 BMI (Body Mass Index) 24.96 kg/m2 [facility] 07-17-2020 23:31-0500 Body Temperature 98.29 [degF] Belen Rodas [facility] 07-17-2020 23:31-0500 [facility] 07-17-2020 23:31-0500 Height 165.1 cm [facility] 06-19-2020 19:15-0500 BMI (Body Mass Index) 24.96 kg/m2 [facility] 06-19-2020 19:15-0500 Body Temperature 97.7 [degF] [facility] 06-19-2020 19:15-0500 Body weight 68.04 kg [facility] 06-19-2020 19:15-0500 BP Diastolic 84 mm[Hg] [facility] 06-19-2020 19:15-0500 BP Systolic 129 mm[Hg] [facility] 06-19-2020 19:15-0500 Height 165.1 cm [facility] 06-19-2020 19:15-0500 Pulse (Heart Rate) 117 /min [facility] 06-19-2020 19:15-0500 Pulse Oximetry 98 % [facility] 06-19-2020 19:15-0500 Respiratory Rate 18 /min [facility] Encounters Encounter Date Encounter Type Care Provider Facility Start: 01-17-2025 End: 01-17-2025 Emergency department patient visit [facility] Start: 12-01-2024 End: 12-01-2024 Emergency department patient visit LORRI OAKLEY [facility] Start: 09-16-2024 End: 09-16-2024 Emergency department patient visit [facility] Start: 09-01-2024 End: 09-02-2024 Emergency department patient visit Ivelisse España DO Work Phone: [facility] Start: 12-27-2023 End: 12-27-2023 Emergency department patient visit [facility] Start: 10-23-2023 End: 10-24-2023 Emergency department patient visit [facility] Start: 10-13-2023 End: 10-13-2023 ambulatory [facility] Start: 10-13-2023 End: 10-13-2023 Office outpatient visit 15 minutes Yogi Thompson MD Work Phone: [facility] Comment on above: Opioid dependence in remission (HCC) (Primary Dx); Buprenorphine dependence (HCC); Person consulting for explanation of examination or test finding; Encounter for medication review and counseling; Issue of repeat prescription; Substance use disorder Start: 09-30-2023 End: 10-04-2023 ambulatory [facility] Start: 09-26-2023 Orders Only Yogi williamson MD Work Phone: [facility] Physician [facility] Comment on above: Opioid dependence in remission (HCC) (Primary Dx) Start: 09-15-2023 End: 09-15-2023 ambulatory YOGI THOMPSON [facility] Start: 09-15-2023 End: 09-15-2023 Office outpatient new 45 minutes Yogi Thompson MD Work Phone: [facility] Physician [facility] Comment on above: Opioid dependence in remission (HCC) (Primary Dx); Substance use disorder; Encounter for medication review and counseling Start: 08-17-2022 Orders Only Yogi williamson MD Work Phone: [facility] Physician [facility] Comment on above: Situational anxiety (Primary Dx); Methamphetamine addiction (HCC); Opiate abuse, continuous (HCC); Methamphetamine abuse (HCC); Chronic hepatitis C without hepatic coma (HCC) Start: 04-30-2021 Orders Only Yogi williamson MD Work Phone: [facility] Start: 03-13-2021 End: 03-13-2021 Emergency department patient visit SAUMYA IRBY [facility] Start: 03-13-2021 End: 03-13-2021 Emergency department patient visit Saumya Irby MD Work Phone: [facility] ED Comment on above: Observed seizure-lik e activity (HCC) (Primary Dx); History of intravenous drug abuse (HCC); 24 weeks gestation of Start: 11-05-2020 End: 11-05-2020 Emergency department patient visit Agustin Gaming Work Phone: [facility] Emergency Department Start: 07-17-2020 End: 07-18-2020 Emergency department patient visit Belen Rodas Work Phone: [facility] Comment on above: Accidental overdose of heroin, initial encounter (HCC) (Primary Dx) Start: 06-19-2020 End: 06-19-2020 Emergency department patient visit Sandy Esteban Jannie Work Phone: [facility] Department Comment on above: Left ear pain (Prima ry Dx); Left otitis media, unspecified otitis media type; Acute otitis externa of left ear, unspecified type Start: 08-27-2018 End: 08-28-2018 Emergency department patient visit Charles Ac Facility:[place] Start: 07-01-2018 End: 07-01-2018 Emergency department patient visit Sandy Valderrama Facility:[place] Start: 03-22-2018 Patient encounter Facil [id number] Start: 02-18-2018 End: 02-18-2018 Emergency department patient visit Mariano Mas Facility:[place] Start: 02-17-2018 End: 02-17-2018 [facility] Start: 02-17-2018 Patient encounter Facil [id number] Start: 12-27-2017 End: 12-27-2017 Emergency department patient visit Yudith Bryant Facility:[place] Start: 12-16-2017 End: 12-19-2017 Ambulatory YOGI COOK [facility] Start: 12-13-2017 End: 12-13-2017 Emergency department patient visit JORGITO KULKARNI [facility] Start: 09-29-2017 Patient encounter procedure Julian Song Facility:[place] Start: 09-29-2017 End: 09-29-2017 Ambulatory Julian Song Work Phone: [facility] Procedures Date Procedure Procedure Detail Performing Clinician Start: 09-02-2024 Ct abdomen & pelvis w/contrast material Ivelisse J Marker DO Work Phone: Start: 09-02-2024 Urinalysis, reagent strip without microscopy Ivelisse J Marker DO Work Phone: Start: 09-02-2024 End: 09-02-2024 Albumin serum plasma/whole blood Ivelisse España DO Work Phone: Start: 09-02-2024 Complete blood count with white cell differential, automated Ivelisse España DO Work Phone: Start: 09-01-2024 Infectious agent dna/rna influenza 1st 2 types Ivelisse España DO Work Phone: Start: 10-13-2023 Drug tst prsmv instrmnt chem analyzers pr date Yogi Thompson MD Work Phone: Start: 09-15-2023 Adult depression screening assessment Yogi Thompson MD Work Phone: Start: 03-31-2022 Adult depression screening assessment Yogi Thomposn MD Work Phone: Start: 03-11-2021 Adult depression screening assessment Yogi Thompson MD Work Phone: Start: 11-05-2020 Radiologic exam chest single view Agustin Gaming Work Phone: Start: 11-05-2020 Basic metabolic 2000 panel - Serum or Plasma [employer] Work Phone: Start: 11-05-2020 Complete blood count with white cell differential, automated [employer] Work Phone: Start: 11-05-2020 Complete blood count with white cell differential, manual [employer]in [employer] Work Phone: Start: 11-05-2020 Hepatic function 2000 panel - Serum or Plasma [employer] Work Phone: Start: 11-05-2020 Lipase [Enzymatic activity/volume] in Serum or Plasma [employer] Work Phone: Start: 11-05-2020 Choriogonadotropin ( test) [Presence] in Urine [employer]in [employer] Work Phone: Start: 11-05-2020 Urinalysis Agustin Gaming Work Phone: Plan of Treatment Date Care Activity Detail Author Start: 06-30-2028 Tetanus vaccination [facility] Start: 09-15-2024 Depression screening using PHQ-9 (Patient Health Questionnaire 9) score Depression Screening (PHQ-2/9) [facility] Start: 04-07-2024 COVID-19 VACCINE ( season) COVID-19 VACCINE () [facility] Start: 04-07-2024 Influenza vaccination INFLUENZA VACC INE (#1) [facility] Start: 11-08-2023 End: 11-08-2023 Patient encounter procedure 11/08/2023 1:00 PM EDT Office Visit [facility] [address] [place] [phone] Yogi Thompson MD [address] [place] [address] [facility] Start: 10-22-2023 COVID-19 Vaccine (#1) COVID-19 Vacci ne (#1) [facility] Comment on above: Postponed from 02/19 (Patient Refused) Start: 10-22-2023 Pneumococcal Vaccine : Ped or At-Risk (1 of 2 - PCV) Pneumococcal Vaccine: Ped or At-Risk (1 of 2 - PCV) [facility] Comment on above: Postponed from 08/22 (Patient Refused) Start: 10-20-2023 History and physical examination, annual for health maintenance Wellness Visit [facility] Start: 10-13-2023 End: 10-13-2023 Patient encounter procedure 10/13/2023 3:40 PM EST Office Visit [facility] [address] [place] [phone] Yogi Thompson MD [address] [place] [address] [facility] Start: 04-07-2023 COVID-19 Vaccine () COVID-19 Vaccine () [facility] Start: 04-07-2023 Influenza vaccination Sequenti al Influenza Vaccine (#1) [facility] Start: 03-31-2023 Depression screening using PHQ-9 (Patient Health Questionnaire 9) score Depression Screening (PHQ-2/9) [facility] Start: 09-28-2022 COVID-19 Vaccine (#1) COVID-19 Vacci ne (#1) [facility] Comment on above: Postponed from 02/19 (Patient Refused) Start: 09-28-2022 History and physical examination, annual for health maintenance Wellness Visit [facility] Start: 09-17-2022 End: 08-17-2023 Drugs of abuse urine screening test Drugs of Abuse Screen, Urine Lab Routine Opiate abuse, continuous (HCC) Methamphetamine abuse (HCC) Expected: 09/17/2022, Expires: 08/17/2023 [facility] Comment on above: Expected: 09/17/2022 , Expires: 08/17/2023 Start: 04-07-2022 Influenza vaccination Sequenti al Influenza Vaccine (#1) [facility] Start: 03-11-2022 Depression screening using PHQ-9 (Patient Health Questionnaire 9) score Depression Screening (PHQ9) [facility] Start: 04-07-2021 Influenza vaccination [facility] Start: 04-07-2020 Influenza vaccinatio n given Sequential Influenza Vaccine (#1) [facility] Start: 2019 Screening for malign ant neoplasm of cervix [facility] Start: 2010 Screening for malign ant neoplasm of cervix [facility] Start: 2008 Hepatitis B vaccination HEP B VACCINE (1 of 3 - 19+ 3-dose series) [facility] Start: 2008 Third diphtheria, te tanus and acellular pertussis (DTaP) vaccination TDAP (ADULT) [facility] Start: 2005 COVID-19 Vaccine (1) COVID-19 Vaccin e (1) [facility] Start: 2004 HIV screening HIV SCREENING DISCUSSI ON [facility] Start: 2001 Adolescent depressio n screening assessment Depression Screening (PHQ9) [facility] Start: 2001 COVID-19 Vaccine (1) COVID-19 Vaccin e (1) [facility] Start: 1995 PNEUMOCOCCAL VACCINE SERIES (1 of 2 - PCV) PNEUMOCOCCAL VACCINE SERIES (1 of 2 - PCV) [facility] Start: 1995 Pneumococcal Vaccine : Ped or At-Risk (1 - PCV) Pneumococcal Vaccine: Ped or At-Risk (1 - PCV) [facility] Start: 1995 Pneumococcal Vaccine : Ped or At-Risk (1 of 2 - PPSV23) Pneumococcal Vaccine: Ped or At-Risk (1 of 2 - PPSV23) [facility] Start: 1992 History and physical examination, annual for health maintenance Wellness Visit [facility] Start: 1989 Hepatitis C screening HEPATITI S C VIRUS SCREENING [facility] Start: 1989 Screening for malign ant neoplasm of cervix Pap Smear [facility] Start: 1989 Tetanus vaccination Tetanus: Every 1 0yrs [facility] End: 11-05-2020 Bacteria identified Aer cx Nom (Unsp spec) Urine Aerobic Culture Microbiology Routine Once for 1 Occurrences starting 11/05/2020 until 11/05/2020 [facility] Comment on above: Once for 1 Occurrenc es starting 11/05/2020 until 11/05/2020 Bacteria identified Aer cx Nom (Unsp spec) Urine Aerobic Culture Microbiology Routine 11/05/2020 1:44 AM EDT [facility] End: 09-15-2024 Buprenorphine measurement Buprenorphine and Norbuprenorphine, Ur Lab Routine Opioid dependence in remission (HCC) 10 Occurrences starting 09/15/2023 until 09/15/2024 [facility] Work Phone: Comment on above: 10 Occurrences start ing 09/15/2023 until 09/15/2024 Buprenorphine measurement Bupren orphine and Norbuprenorphine, Ur Lab Routine Opioid dependence in remission (HCC) 10/13/2023 3:04 PM EST [facility] Work Phone: End: 03-13-2021 CBC W Auto Differential panel - Blood CBC Auto Differential Lab STAT One Time for 1 Occurrences starting 03/13/2021 until 03/13/2021 [facility]: Comment on above: One Time for 1 Occur rences starting 03/13/2021 until 03/13/2021 End: 08-17-2023 Complete blood count with white cell differential, manual CBC and Differential Lab Routine Opiate abuse, continuous (HCC) Methamphetamine abuse (HCC) 1 Occurrences starting 08/17/2022 until 08/17/2023 [facility] Comment on above: 1 Occurrences starti ng 08/17/2022 until 08/17/2023 End: 08-17-2023 Comprehensive metabolic 2000 panel - Serum or Plasma Comprehensive Metabolic Panel Lab Routine Opiate abuse, continuous (HCC) Methamphetamine abuse (HCC) 1 Occurrences starting 08/17/2022 until 08/17/2023 [facility] Comment on above: 1 Occurrences starti ng 08/17/2022 until 08/17/2023 End: 03-13-2021 Comprehensive Metabolic Panel w/ Reflex to MG Comprehensive Metabolic Panel w/ Reflex to MG Lab STAT One Time for 1 Occurrences starting 03/13/2021 until 03/13/2021 [employer] Phone: Comment on above: One Time for 1 Occur rences starting 03/13/2021 until 03/13/2021 End: 03-13-2021 Drug screen multi urine Drug screen multi urine Lab STAT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 Highest education level: Not on file Occupational History Not on file Tobacco Use Smoking status: Every Day Current packs/day: 1.00 Types: Cigarettes Smokeless tobacco: Never Vaping Use Vaping status: Never Used Substance and Sexual Activity Alcohol use: Yes Alcohol/week: 1.0 standard drink of alcohol Types: 1 Cans of beer per week Drug use: Not Currently Types: IV, Methamphetamines Comment: Heroin- clean for last 6 months. Sexual activity: Not Currently Comment: in [facility] Other Topics Concern Service Not Asked Blood Transfusions Not Asked Caffeine Concern Not Asked Occupational Exposure Not Asked Hobby Hazards Not Asked Sleep Concern Not Asked Stress Concern Not Asked Weight Concern Not Asked Special Diet Not Asked Back Care Not Asked Exercise Not Asked Bike Helmet Not Asked Seat Belt Not Asked Domestic Violence Not Asked Social History Narrative Not on file Social Determinants of Health Financial Resource Strain: Low Risk (09/28/2021) Received from [facility] Overall Financial Resource Strain (CARDIA) Difficulty of Paying Living Expenses: Not hard at all Food Insecurity: No Food Insecurity (09/28/2021) Received from [facility] Hunger Vital Sign Worried About Running Out of Food in the Last Year: Never true Ran Out of Food in the Last Year: Never true Transportation Needs: No Transportation Needs (09/28/2021) Received from [facility] PRAPARE - Transportation Lack of Transportation (Medical): No Lack of Transportation (Non-Medical): No Physical Activity: Insufficiently Active (09/28/2021) Received from [facility] Exercise Vital Sign Days of Exercise per Week: 1 day Minutes of Exercise per Session: 30 min Stress: No Stress Concern Present (09/28/2021) Received from [facility] Citizen Of The [place] Bradley of Occupational Health - Occupational Stress Questionnaire Feeling of Stress : Not at all Social Connections: Socially Isolated (09/28/2021) Received from [facility] Social Connection and Isolation Panel [NHANES] Frequency of Communication with Friends and Family: Twice a week Frequency of Social Gatherings with Friends and Family: Never Attends Lutheran Services: Never Active Member of Clubs or Organizations: No Attends Club or Organization Meetings: Never Marital Status: Never Intimate Partner Violence: Not At Risk (09/28/2021) Received from [facility] Humiliation, Afraid, Rape, and Kick questionnaire Fear of Current or Ex-Partner: No Emotionally Abused: No Physically Abused: No Sexually Abused: No Housing Stability: Not on file Physical Exam: Physical Exam Vitals (Patient was afebrile with a normal pulse, blood pressure is elevated at 140 5/100, she was not hypoxic with pulse ox of 99% on room air) reviewed. Constitutional: Appearance: She is obese. HENT: Head: Normocephalic and atraumatic. Nose: Congestion present. Mouth/Throat: Mouth: Mucous membranes are moist. Eyes: Extraocular Movements: Extraocular movements intact. Conjunctiva/sclera: Conjunctivae normal. Pupils: Pupils are equal, round, and reactive to light. Cardiovascular: Rate and Rhythm: Normal rate and regular rhythm. Pulses: Normal pulses. Pulmonary: Effort: Pulmonary effort is normal. Breath sounds: Normal breath sounds. Comments: Lungs are clear with good air entry, there is no wheezing rhonchi or rales appreciated, no accessory muscle use, she was speaking complete sentences and pulse ox is normal at 99% on room air Abdominal: Comments: Obese, soft, nondistended, mild tenderness in the right lower quadrant without rebound guarding or rigidity, negative Rovsing sign Musculoskeletal: General: No swelling, tenderness, deformity or signs of injury. Normal range of motion. Cervical back: Normal range of motion. Right lower leg: No edema. Left lower leg: No edema. Skin: General: Skin is warm. Capillary Refill: Capillary refill takes less than 2 seconds. Comments: Skin is flushed, no rash noted Neurological: General: No focal deficit present. Mental Status: She is alert. Psychiatric: Comments: Anxious Vital Signs During ED Visit Patient Vitals for the past 24 hrs: BP Temp Temp src Pulse Resp SpO2 Height 09/02/24 0524 94/54 -- -- 96 16 98 % -- 09/02/24 0250 (!) 134/92 -- -- 89 16 -- -- 09/01/24 2346 -- -- -- -- -- -- 1.651 m (5' 5) 09/01/24 2345 (!) 145/100 97.1 F (36.2 C) Oral 93 20 99 % -- Orders/Results: Orders Placed This Encounter [facility] 1 - NASOPHARYNGEAL CT ABDOMEN/PELVIS WITH CONTRAST INFLUENZA A AND B, PCR CHEM 7 (LYTES,BUN,CREA,GLUC) HEPATIC FUNCTION PANEL LIPASE CBC, EDIF, PLATELET D-DIMER,QUANTITATIVE Sodium chloride 0.9% IV solution 1,000 mL Ketorolac (TORADOL) injection 30 mg iohexol (OMNIPAQUE) 350 MG/ML injection 75 mL Sodium chloride 0.9% IV solution 75 mL URINALYSIS, MACRO HCG QUALITATIVE, URINE Results for orders placed or performed during the hospital encounter of 09/01/24 [facility] - NASOPHARYNGEAL Specimen: NASOPHARYNGEAL; Fluid/Swab Result Value Ref Range SARS COV 2 RNA, QL REAL TIME RT PCR DETECTED (A) NOT DETECTED NARRATIVE -1 This test was performed using isothermal MARLEN for the qualitative detection of SARS-CoV-2 nucleic acid. INFLUENZA A AND B, PCR Result Value Ref Range INFLUENZA A NEGATIVE NEGATIVE INFLUENZA B NEGATIVE NEGATIVE CHEM 7 (LYTES,BUN,CREA,GLUC) Result Value Ref Range Glucose 84 70 - 100 MG/DL BUN 10 7 - 20 MG/DL CREATININE SERUM 0.55 (L) 0.70 - 1.20 MG/DL SODIUM 135 (L) 137 - 145 MMOL/L Potassium 4.3 3.5 - 5.1 MMOL/L CHLORIDE 100 98 - 107 MMOL/L CARBON DIOXIDE (CO2) 30 22 - 30 MMOL/L ESTIMATED GFR, NON AMER 134 ml/min/1.73sq.m ESTIMATED GFR, 162 ml/min/1.73sq.m GFR COMMENT Average GFR for 30-39 years old = 107. HEPATIC FUNCTION PANEL Result Value Ref Range Albumin 4.6 3.5 - 5.0 G/DL BILIRUBIN, TOTAL 0.5 0.2 - 1.3 MG/DL ALKALINE PHOSPHATASE 60 38 - 126 IU/L AST 71 (H) 14 - 36 IU/L BILIRUBIN, DIRECT 0.2 0.0 - 0.4 MG/DL PROTEIN, TOTAL 8.0 6.3 - 8.2 GM/DL ALT 118 (H) <35 IU/L LIPASE Result Value Ref Range LIPASE 54 23 - 300 U/L CBC, EDIF, PLATELET Result Value Ref Range WBC (WHITE BLOOD COUNT) 4.6 3.6 - 11.0 10*3/uL RBC 4.36 4.0 - 5.4 10*6/uL HEMOGLOBIN (HGB) 14.2 12.0 - 16.0 G/DL HEMATOCRIT (HCT) 39.8 36.0 - 48.0 % MEAN CELL VOLUME 91.3 80.0 - 100.0 FL Mean Cell HGB 32.7 26.0 - 35.0 PG MEAN CELL HGB CONCENTRATION 35.8 27.0 - 37.0 G/DL RBC DISTRIBUTION 12.5 11.5 - 14.5 % PLATELET COUNT 164 130 - 400 10*3/uL MEAN PLATELET VOLUME 8.1 7.4 - 11.0 FL NEUTROPHILS 46 37.0 - 75.0 % BAND NEUTROPHIL % 1 0.0 - 2.0 % LYMPHOCYTE 49 20.0 - 55.0 % MONOCYTE % 2 0.0 - 10.0 % EOSINOPHIL % 2 0.0 - 11.0 % MORPHOLOGY NORMAL DIFFERENTIAL TYPE MANUAL DIFF % PLATELET COMMENT ADEQUATE D-DIMER,QUANTITATIVE Result Value Ref Range D-DIMER 0.33 <0.50 g/ml URINALYSIS, MACRO Result Value Ref Range COLOR, URINE YELLOW YELLOW APPEARANCE, URINE CLEAR CLEAR Specific Baird, Urine 1.010 1.010 - 1.025 PH URINE 7.0 5.0 - 7.0 Urine Protein NEGATIVE NEGATIVE mg/dl GLUCOSE, URINE NEGATIVE NEGATIVE mg/dl KETONES, URINE NEGATIVE NEGATIVE mg/dl BILIRUBIN, URINE NEGATIVE NEGATIVE BLOOD, URINE DIPSTICK NEGATIVE NEGATIVE NITRITES, URINE NEGATIVE NEGATIVE UROBILINOGEN, URINE 0.2 0.2 - 1.0 E.U./dL LEUKOCYTE ESTERASE, URINE NEGATIVE NEGATIVE HCG QUALITATIVE, URINE Result Value Ref Range HCG, QUALITATIVE, URINE NEGATIVE NEGATIVE Radiographic Imaging CT ABDOMEN/PELVIS WITH CONTRAST Procedures: Procedures Moderate Sedation Procedure: No ED Summary/MDM This 34-year-old female presents for evaluation of multiple complaints including fevers, chills, headache, burning to her thighs and pain in her right lower quadrant as well as abdominal pain and bloating. She denies any urinary symptoms. She has not had any vomiting or diarrhea. She doubts the possibility of . She also states that her belly is much more swollen than normal and she has gained weight without any change in her diet. She was noted to be febrile and tachycardic upon arrival. An IV was placed and she was given IV fluids and Toradol. She was positive for COVID-19. Her test is negative. Her urinalysis is negative. She has a normal white count and hemoglobin. Electrolytes are normal and liver function tests are mildly elevated this is typically the ALT and AST with a normal bilirubin. Due to the pain in her right lower quadrant and influenza which may be preventing her from developing a normal white count with a appendicitis a CT scan of the abdomen and pelvis was ordered to rule out appendicitis. CT scan of the abdomen and pelvis is negative for acute appendicitis or other acute intra-abdominal pathology and she will be discharged home at this time with a prescription for ibuprofen and recommendation for quarantine for the next 5 days Clinical Impression: 1. COVID-19 No follow-ups on file. New Prescriptions No medications on file Discontinued Medications No medications on file An After Visit Summary was printed and given to the patient with above information. . . Ivelisse España DO 09/02/24 0553 [facility] 10-13-2023 History of Presen t illness Narrative [facility] [address] [facility] SUBSTANCE USE OPIATES METH [address] [facility] [id number] Patient Name: Cassie Suggs Date: 10/13/2023 MR #: [id number] Physicians: Kareen Salgado CNP (Family); No ref. provider found (Referring) Subjective: Cassie Suggs is a 33 y.o. female seen in the office today for IGNACIO F/u (FIRST SUBLOCADE #1 ) HPI / ASSESSMENT / PLAN: 10/13/23 -here for substance use opiates and has been on buprenorphine and wanting to taper but having trouble and will initiate Sublocade today. Had talked to her about initial higher dose and then will go down if we see how she is absorbing. She has been hydrating with her new job and this had caused her to need to reschedule Working 3rd shift at [employer] 5 to 6 days. Still making to [facility] follow up and peer with Linda Chicasn that brought her here today 09/15/23 -patient is here as a new patient to going. She is wanting to get on Sublocade as she has been trying to taper buprenorphine but knows she needs some extra help. Is here with her peers support Linda [facility] [address] Living by self in and [facility] has been very helpful On suboxone 5 to 6 months. Had been through Twila Holder who is not able to prescribe. Her last prescription was June 19 and she did have some before getting this prescribed and she has been averaging about 1/day and only has 1 left. She states she can feel like she could go into withdrawal if she does not take 1 a day. She states that her last visit she was sent an electronic prescription by Twila Holder and was told that a friend was signing it and can see that it was by Dr. Villagran who she has never met. Was seen in emergency on August 17 for cough and shortness of breath and is improved. She did have labs at that time that included a negative test and normal liver functioning. She has not been active. Discussed Sublocade and reviewed CSA and answered all questions. Urinated just prior to here and unable today and will go to the hospital tomorrow. She understands we need to see levels to try to find that dosage as she does not feel she needs to stay at on the highest dose and start there. Will set her up for a nurse visit on Monday if her levels are okay most likely starting at 200 or 300 mg and then see her 4 weeks after that. Diagnoses and all orders for this visit: Opioid dependence in remission (HCC) - buprenorphine extended release (SUBLOCADE) subcutaneous injection 300 mg Buprenorphine dependence (HCC) - buprenorphine extended release (SUBLOCADE) subcutaneous injection 300 mg Person consulting for explanation of examination or test finding Encounter for medication review and counseling Issue of repeat prescription Review of Systems All other systems reviewed and are negative. Histories: Past Medical History: Diagnosis Date 38 weeks gestation of 06/12/2021 Anxiety Depression Hepatitis C Herpes HPV in female Substance abuse (HCC) Past Surgical History: Procedure Laterality Date CERVICAL CONIZATION LOOP ELECTROSURGICAL EXCISION PROCEDURE LEEP WISDOM TOOTH EXTRACTION Family History Problem Relation Age of Onset Hypertension Mother Miscarriages / Stillbirths Mother Alcohol abuse Father Depression Father Hypertension Father Cancer Maternal Aunt Arthritis Maternal Grandmother Cancer Maternal Grandfather COPD Maternal Grandfather Heart disease Maternal Grandfather Social History Tobacco Use Smoking status: Every Day Packs/day: .5 Types: Cigarettes Smokeless tobacco: Never Vaping Use Vaping Use: Never used Substance Use Topics Alcohol use: Not Currently Comment: SOCIALLY Drug use: Not Currently Types: Opiates, Heroin Comment: PT REPORTS HEROIN USAGE 1 week ago; States 05/17/2021 that she partoook in first 2 months of . 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 Objective: Vital Signs: BP 95/60 Pulse 87 Temp 98.2 F (36.8 C) (Oral) Ht 5' 5 Wt 80.8 kg (178 lb 1.6 oz) SpO2 97% BMI 29.64 kg/m Wt Readings from Last 3 Encounters: 10/13/23 80.8 kg (178 lb 1.6 oz) 09/15/23 75.1 kg (165 lb 8 oz) 08/17/23 74.8 kg (165 lb) Physical Examination: Physical Exam Vitals and nursing note reviewed. Constitutional: Appearance: Normal appearance. HENT: Mouth/Throat: Mouth: Mucous membranes are moist. Eyes: General: No scleral icterus. Conjunctiva/sclera: Conjunctivae normal. Pupils: Pupils are equal, round, and reactive to light. Cardiovascular: Rate and Rhythm: Normal rate. Pulmonary: Effort: Pulmonary effort is normal. Musculoskeletal: General: Normal range of motion. Cervical back: Normal range of motion. Right lower leg: No edema. Left lower leg: No edema. Skin: General: Skin is warm and dry. Neurological: General: No focal deficit present. Mental Status: She is alert and oriented to person, place, and time. Psychiatric: Behavior: Behavior normal. Medications and Allergies: Patient's Medications New Prescriptions No medications on file Previous Medications BUPRENORPHINE EXTENDED RELEASE (SUBLOCADE) 300 MG/1.5 ML SUBCUTANEOUS INJECTION Inject 1.5 mL (300 mg total) under the skin every 28 days for 2 doses . BUPRENORPHINE-NALOXONE (SUBOXONE) 8-[address] 1 (one) tablet under the tongue daily for 16 days Start: 09/27/23. BUSPIRONE (BUSPAR) 30 MG TABLET FERROUS SULFATE 325 (65 FE) MG TABLET Take 1 (one) tablet (325 mg total) by mouth 3 (three) times a day with meals . LAMOTRIGINE (LAMICTAL) 200 MG TABLET MELATONIN 5 MG TAB MULTIVITAMIN (THERAGRAN) PER TABLET Take 1 (one) tablet by mouth daily . NALTREXONE MICROSPHERES (VIVITROL) Inject 380 (three hundred eighty) mg into the shoulder, thigh, or buttocks every 30 (thirty) days . NICOTINE 21-14-7 MG/[address] 1 patch on the skin daily . NORETHINDRONE (MICRONOR) 0.35 MG TABLET Take 1 (one) tablet (0.35 mg total) by mouth daily . OLANZAPINE (ZYPREXA) 10 MG TABLET ONDANSETRON (ZOFRAN) 4 MG TABLET Take 1 (one) tablet (4 mg total) by mouth every 8 (eight) hours as needed for nausea . PROPRANOLOL (INDERAL) 10 MG TABLET TRAZODONE (DESYREL) 100 MG TABLET VRAYLAR 1.5 MG CAPSULE Modified Medications No medications on file Discontinued Medications No medications on file Allergies Allergen Reactions Vancomycin Hives and Itching Labs: No results found for this or any previous visit (from the past 144 hour(s)). @[id number]@ Follow Up Ordered: Orders Placed This Encounter buprenorphine extended release (SUBLOCADE) subcutaneous injection 300 mg No follow-ups on file. There are no Patient Instructions on file for this visit. Yogi Thompson MD This note was dictated using voice-recognition software for expedited communication. Please kindly excuse any typos or mis-recognized words. documented in this encounter [facility] 09-15-2023 History of Presen t illness Narrative Outpatient Progress note (Addiction Medicine) OPIATES METH BUPRENORPHINE Patient Name: Cassie Suggs Date: 09/16/2023 MR #: [id number] : 1990 Physicians: Kareen Salgado, NEIGHBORHOOD CONSERVATION OFFICER (Family); No ref. provider found (referring) Reason for visit/chief complain: Management of opioid use disorder HPI/Subjective: Cassie Suggs is a 33 y.o. y/o female 09/15/23 -patient is here as a new patient to going. She is wanting to get on Sublocade as she has been trying to taper buprenorphine but knows she needs some extra help. Is here with her peers support [facility] [address] Living by self in and [facility] [employer] has been very helpful On suboxone 5 to 6 months. Had been through Twila Holder who is not able to prescribe. Her last prescription was June 19 and she did have some before getting this prescribed and she has been averaging about 1/day and only has 1 left. She states she can feel like she could go into withdrawal if she does not take 1 a day. She states that her last visit she was sent an electronic prescription by Twila Holder and was told that a friend was signing it and can see that it was by Dr. Villagran who she has never met. Was seen in emergency on August 17 for cough and shortness of breath and is improved. She did have labs at that time that included a negative test and normal liver functioning. She has not been active. Discussed Sublocade and reviewed CSA and answered all questions. Urinated just prior to here and unable today and will go to the hospital tomorrow. She understands we need to see levels to try to find that dosage as she does not feel she needs to stay at on the highest dose and start there. Will set her up for a nurse visit on Monday if her levels are okay most likely starting at 200 or 300 mg and then see her 4 weeks after that. Denies any current symptoms related to substance use disorder Cravings: No on average 8 mg buprenorphine per day Legal issues:on probation and following with PO Social History Socioeconomic History Marital status: Single Tobacco Use Smoking status: Every Day Packs/day: .5 Types: Cigarettes Smokeless tobacco: Never Vaping Use Vaping Use: Never used Substance and Sexual Activity Alcohol use: Not Currently Comment: SOCIALLY Drug use: Not Currently Types: Opiates, Heroin Comment: PT REPORTS HEROIN USAGE 1 week ago; States 05/17/2021 that she partoook in first 2 months of . 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 Sexual activity: Not Currently Partners: Male control/protection: None Social Determinants of Health Financial Resource Strain: Low Risk (09/28/2021) Overall Financial Resource Strain (CARDIA) Difficulty of Paying Living Expenses: Not hard at all Food Insecurity: No Food Insecurity (09/28/2021) Hunger Vital Sign Worried About Running Out of Food in the Last Year: Never true Ran Out of Food in the Last Year: Never true Transportation Needs: No Transportation Needs (09/28/2021) PRAPARE - Transportation Lack of Transportation (Medical): No Lack of Transportation (Non-Medical): No Physical Activity: Insufficiently Active (09/28/2021) Exercise Vital Sign Days of Exercise per Week: 1 day Minutes of Exercise per Session: 30 min Stress: No Stress Concern Present (09/28/2021) Citizen Of The [place] Bradley of Occupational Health - Occupational Stress Questionnaire Feeling of Stress : Not at all Social Connections: Socially Isolated (09/28/2021) Social Connection and Isolation Panel [NHANES] Frequency of Communication with Friends and Family: Twice a week Frequency of Social Gatherings with Friends and Family: Never Attends Lutheran Services: Never Active Member of Clubs or Organizations: No Attends Club or Organization Meetings: Never Marital Status: Never Housing Stability: Low Risk (09/28/2021) Housing Stability Vital Sign Unable to Pay for Housing in the Last Year: No Number of Places Lived in the Last Year: 1 Unstable Housing in the Last Year: No Past Medical History: Diagnosis Date 38 weeks gestation of 06/12/2021 Anxiety Depression Hepatitis C Herpes HPV in female Substance abuse (HCC) Past Surgical History: Procedure Laterality Date CERVICAL CONIZATION LOOP ELECTROSURGICAL EXCISION PROCEDURE LEEP WISDOM TOOTH EXTRACTION Family History Problem Relation Age of Onset Hypertension Mother Miscarriages / Stillbirths Mother Alcohol abuse Father Depression Father Hypertension Father Cancer Maternal Aunt Arthritis Maternal Grandmother Cancer Maternal Grandfather COPD Maternal Grandfather Heart disease Maternal Grandfather Allergy Information: I have reviewed the patient's allergies. Vancomycin Home Medications: Outpatient Medications as of 09/15/2023 Medication Sig buprenorphine-nalOXone (SUBOXONE) 8-2 mg tablet TAKE ONE TABLET UNDER THE TONGUE TWICE DAILY busPIRone (BUSPAR) 30 MG tablet OLANZapine (ZYPREXA) 10 MG tablet lamoTRIgine (LAMICTAL) 200 MG tablet melatonin 5 mg Tab naltrexone microspheres (VivitroL) Inject 380 (three hundred eighty) mg into the shoulder, thigh, or buttocks every 30 (thirty) days . (Patient not taking: Reported on 09/15/2023 .) nicotine 21-14-7 mg/[address] 1 patch on the skin daily . (Patient not taking: Reported on 09/15/2023 .) propranoloL (INDERAL) 10 MG tablet traZODone (DESYREL) 100 MG tablet Vraylar 1.5 mg capsule Review of Systems: The following system(s) were reviewed and pertinent findings noted: Review of Systems All other systems reviewed and are negative. Physical Examination: Vital Signs: BP 97/68 Pulse 91 Temp 98.6 F (37 C) (Oral) Ht 5' 5 Wt 75.1 kg (165 lb 8 oz) SpO2 97% BMI 27.54 kg/m Physical Exam Constitutional: General: She is not in acute distress. Appearance: She is well-developed. She is not diaphoretic. HENT: Head: Normocephalic and atraumatic. Mouth/Throat: Mouth: Mucous membranes are dry. Eyes: General: No scleral icterus. Conjunctiva/sclera: Conjunctivae normal. Pupils: Pupils are equal, round, and reactive to light. Comments: 3mm Cardiovascular: Rate and Rhythm: Normal rate. Pulmonary: Effort: Pulmonary effort is normal. Musculoskeletal: General: Normal range of motion. Cervical back: Neck supple. Skin: General: Skin is warm and dry. Neurological: General: No focal deficit present. Mental Status: She is alert and oriented to person, place, and time. Psychiatric: Mood and Affect: Mood normal. Behavior: Behavior normal. Thought Content: Thought content normal. Laboratory and Additional Data Reviewed: Laboratory 09/16/23 11:53 AM Medications 09/16/23 11:53 AM Assessment and Plan Problem List Substance use disorder Opioid dependence in remission (HCC) - Primary Relevant Medications buprenorphine-nalOXone (SUBOXONE) 8-2 mg tablet buprenorphine extended release (SUBLOCADE) 300 mg/1.5 mL subcutaneous injection Other Relevant Orders Buprenorphine and Norbuprenorphine, Ur For any new medications prescribed today, patient was educated about indications for the medication, how to take the medication and potential side effects of the medications. Problems No problems updated. Labs ordered: Yes Urine toxicology results: unable to give Urine toxicology confirmation from previous visits reviewed Current Outpatient Medications Medication Sig Dispense Refill buprenorphine-nalOXone (SUBOXONE) 8-2 mg tablet TAKE ONE TABLET UNDER THE TONGUE TWICE DAILY busPIRone (BUSPAR) 30 MG tablet OLANZapine (ZYPREXA) 10 MG tablet buprenorphine extended release (SUBLOCADE) 300 mg/1.5 mL subcutaneous injection Inject 1.5 mL (300 mg total) under the skin every 28 days for 2 doses . 1.5 mL 1 buprenorphine-nalOXone (SUBOXONE) 8-[address] 1 (one) tablet under the tongue daily for 7 days . 7 tablet 0 ferrous sulfate 325 (65 FE) MG tablet Take 1 (one) tablet (325 mg total) by mouth 3 (three) times a day with meals . 270 tablet 0 lamoTRIgine (LAMICTAL) 200 MG tablet melatonin 5 mg Tab multivitamin (THERAGRAN) per tablet Take 1 (one) tablet by mouth daily . 90 tablet 3 naltrexone microspheres (VivitroL) Inject 380 (three hundred eighty) mg into the shoulder, thigh, or buttocks every 30 (thirty) days . (Patient not taking: Reported on 09/15/2023 .) 1 each 11 nicotine 21-14-7 mg/[address] 1 patch on the skin daily . (Patient not taking: Reported on 09/15/2023 .) 30 patch 0 norethindrone (MICRONOR) 0.35 mg tablet Take 1 (one) tablet (0.35 mg total) by mouth daily . 30 tablet 11 ondansetron (ZOFRAN) 4 MG tablet Take 1 (one) tablet (4 mg total) by mouth every 8 (eight) hours as needed for nausea . 20 tablet 0 propranoloL (INDERAL) 10 MG tablet traZODone (DESYREL) 100 MG tablet Vraylar 1.5 mg capsule No current facility-administered medications for this visit. Medications ordered: New Prescriptions buprenorphine-nalOXone (SUBOXONE) 8-[address] 1 (one) tablet under the tongue daily for 7 days . buprenorphine extended release (SUBLOCADE) 300 mg/1.5 mL subcutaneous injection Inject 1.5 mL (300 mg total) under the skin every 28 days for 2 doses . Medications discontinued Discontinued Medications No medications on file OARRS/NARx reviewed OARRS/NARxCHECK Report Received and Assessed: No data found Date controlled substance agreement signed: No data found Date of last drug screen: No data found Functional Assessment: No data found Patient is making an informed decision. Internal and external medical records reviewed. Answered patient's questions. Assessment Detail: The total of 50 to 55 minutes were spent [id number]-cd-etxm with the patient during this encounter and over half of that time was spent on counseling and coordination of care. MDM: @[id number]@ Ygoi Thompson MD 03/31/2022 3:24 PM 09/15/2023 2:00 PM Depression Screening Little interest or pleasure in doing things 1 0 Feeling down, depressed, or hopeless 1 0 PHQ-2 Total Score 2 0 Trouble falling or staying asleep, or sleeping too much 1 Feeling tired or having little energy 1 Poor appetite or overeating 0 Feeling bad about yourself - or that you are a failure or have let yourself or your family down 1 Trouble concentrating on things, such as reading the newspaper or watching television 1 Moving or speaking so slowly that other people could have noticed. Or the opposite - being so fidgety or restless that you have been moving around a lot more than usual 0 Thoughts that you would be better off , or of hurting yourself in some way 0 PHQ-9 Total Score 6 documented in this encounter [facility] 08-17-2022 Note Addended by: YOGI THOMPSON on: 08/17/2022 04:38 PM Modules accepted: Orders [facility] 08-17-2022 Note Addended by: YOGI THOMPSON on: 08/17/2022 04:38 PM Modules accepted: Orders [facility] 08-17-2022 Miscellaneous Notes Addended by: YOGI THOMPSON on: 08/17/2022 04:38 PM Modules accepted: Orders documented in this encounter [facility] 04-30-2021 Miscellaneous Notes Addended by: YOGI THOMPSON on: 04/30/2021 07:30 PM Modules accepted: Orders documented in this encounter [facility] 03-13-2021 History of Presen t illness Narrative Pt apologizes to this nurse for her behaviors and refusals. Nurse sits and talks with pt. Pt states she wishes to go to [facility] and will not agree to have testing done here. Pt states she feels comfortable leaving with her boyfriend who states she will drive her to [facility] for further evaluation. Pt is calm and cooperative at this time and does sign AMA willingly. Boyfriend here and assists pt to vehicle. Pt in bed, asked if she will give a blood sample, states that she does not understand why we need to get blood. Repeatedly states that she does not understand why we are sending her to [place]. Pt informed that it was her request to go to [place], but they do not accept high risk patients, and that she will have to go to [place]. Pt keeps repeating that she does not want us to get our way and that she does not want lab drawn. Pt sitting on edge of bed with boyfriend. Pt arrives per private car to hospital. Pt at first does not want to come in, then patient comes in per wheelchair. Per aracelis Colby, he states that patient was sitting in an air conditioned car for approximately 10 minutes when at 4 year came up to him and stated that the patient was not responding to her. Aracelis states that he was yelling at her as the doors were locked and she would not respond to her. Aracelis states that he broke out the passenger window to gain access to her. States that she threw her head back and was shaking all over and would not respond to her. He drove her to the hospital. He states that she got out of [employer] in [place] yesterday around 10am. He said that he did not see her until 10 pm last night. Johannaienroscoe states that she took 3-4 5mg of Buspar and 1-2 of the 7.5 mg Buspar. States that he does not have proof, but believes that she may have taken Meth yesterday. Pt states that she does not remember what happened this morning, and does not remember the seizure activity. Pt becomes agitated with staff, saying that we all are lying to her to get her in the hospital. Pt refuses to be on the monitor, have lab drawn, or any further testing. Pt becomes argumentative, and states that she wants to leave, that she is fine. Pt states that she wants to go to [facility]. After discussion pt states that she will go to [facility] per ambulance. Pt informed that hospital beds availability is uncertain and we will have to check first and let her know. Scrapes that patient has on legs from broken glass are cleansed with H2O2, no bleeding noted. Boyfriend Lasha in and talking with patient. documented in this encounter [facility] Phone: 03-13-2021 Hospital Discharg e instructions Saumya Irby MD - 03/13/2021 Seizures during may indicate life-threatening elevation liver enzymes, kidney failure and needs to be evaluated and treated treated. Follow-up with the emergency department as soon as possible The following attachments cannot be sent through Care Everywhere.Seizure (Bahamian): Weeks 22 to 26 (Bahamian)documented in this encounter [facility] Phone: Evaluation note Diagnosis Observed seizure-like activity (HCC)- Primary Other convulsions History of intravenous drug abuse (HCC) 24 weeks gestation of state, incidental documented in this encounter [facility] Phone: evaluation note* Diagnosis Situational anxiety- Primary Methamphetamine addiction (HCC) Opiate abuse, continuous (HCC) Methamphetamine abuse (HCC) Nondependent amphetamine or related acting sympathomimetic abuse, unspecified Chronic hepatitis C without hepatic coma ([facility]CC) [facility] Diagnosis Opioid dependence in remission (HCC)- Primary Opioid type dependence, in remission Substance use disorder Encounter for medication review and counseling [facility] Diagnosis Opioid dependence in remission (HCC)- Primary Opioid type dependence, in remission [facility] Diagnosis Opioid dependence in remission (HCC)- Primary Opioid type dependence, in remission Buprenorphine dependence (HCC) Person consulting for explanation of examination or test finding Encounter for medication review and counseling Issue of repeat prescription Issue of repeat prescriptions Substance use disorder [facility] Diagnosis Herpes zoster without complication- Primary Facial cellulitis Cellulitis and abscess of face Facial cellulitis Cellulitis and abscess of face Opioid dependence in remission Opioid type dependence, in remission COVID-19- Primary documented in this encounter [facility] Discharge instructions* Attachments The following attachments cannot be sent through Care Everywhere. * COVID Home Monitoring ([facility]) (Bahamian) * Coronavirus Disease (COVID-19): General Info ([place]) [facility] Family History No Family History Records FoundNo Family History Records FoundNo Family History Records FoundNo Family History Records FoundNo Family History Records FoundNo Family History Records FoundNo Family History Records FoundNo Family History Records FoundNo Family History Records FoundNo Family History Records FoundNo Family History Records Found Advance Directives No Advanced Directives Records FoundDocuments on File Type Date Recorded Patient Quality Engineer Expl anation Advance Directives and Livin g Will 06/19/2020 7:26 PM Documents on File Type Date Recorded Patient Quality Engineer Expl anation Advance Directives and Livin g Will 07/18/2020 7:26 PM Documents on File Type Date Recorded Patient Quality Engineer Expl anation Advance Directives and Livin g Will 07/18/2020 7:26 PM Advance Directives and Livin g Will 11/05/2020 2:10 AM Documents on File Type Date Recorded Patient Quality Engineer Expl anation Advance Directives and Livin g Will 11/05/2020 2:10 AM Advance Directives and Livin g Will 07/18/2020 7:26 PM Latest Code Status on File Code Status Date Activated Date Inactivated Comments Full Code 06/13/2021 3:57 AM 06/14/2021 5:39 PM Code Status History Code Status Date Activated Date Inactivated Comments Full Code 06/12/2021 8:56 PM 06/13/2021 3:50 AM Full Code 05/17/2021 3:53 PM 05/17/2021 8:10 PM Latest Code Status on File Code Status Date Activated Date Inactivated Comments Full Code 06/13/2021 3:57 AM 06/14/2021 5:39 PM Code Status History Code Status Date Activated Date Inactivated Comments Full Code 06/12/2021 8:56 PM 06/13/2021 3:50 AM Full Code 05/17/2021 3:53 PM 05/17/2021 8:10 PM Date Activated Date Inactivated Comments 12/16/2017 5:20 PM Discharge Instructions * Attachments The following attachments cannot be sent through Care Everywhere. * Earache: Adult (Bahamian) documented in this encounter* Instructions* Belen Rodas MD - 07/17/2020 Please get help for your drug abuse problem. * Attachments The following attachments cannot be sent through Care Everywhere. * Drug Overdose: Opioid (Bahamian) documented in this encounter* Instructions* Agustin Gaming DO - 11/05/2020 Please follow-up at [facility] in [place] or the CONTROL SYSTEMS [employer]ELOPER provider of your choice. Please call this morning for close follow-up within the next 1 to 2 weeks. Please call your primary care physicianfor close follow-up and further evaluation and management. Regarding your substance use, please work with your CONTROL SYSTEMS DEVELOPER provide to have a safe plan getting off of drugs. Please return to the nearest emergency department immediately for any new or worsening symptoms such as fevers, abdominal pain, persistent nausea or vomiting, vaginal bleeding or discharge, or any further concerns. * Attachments The following attachments cannot be sent through Care Everywhere. * : Morning Sickness (Bahamian) * Cough (Bahamian) documented in this encounter Assessments Diagnosis Left ear pain- Primary Unspecified otalgia Left otitis media, unspecified otitis media type Acute otitis externa of left ear, unspecified type Diagnosis Accidental overdose of heroin, initial encounter ([facility])- Primary Diagnosis Nausea and vomiting in - Primary Unspecified vomiting of , unspecified as to episode of care Cough Substance use disorder Bacteriuria during Reason for Referral Specialty Diagnoses / Procedures Referred By Contac t Referred To Contact Yogi Thompson MD [address] [place] [address] Referral ID Status Reason Start Date Expiration Date Visits Re quested Visits Authorized [id number] Closed 1 1 Specialty Diagnoses / Procedures Referred By Contac t Referred To Contact Diagnoses Opioid dependence in remission ([facility]) Yogi Thompson MD [address] [place] [id number] Referral ID Status Reason Start Date Expiration Date Visits Re quested Visits Authorized [id number] Closed 1 1 Additional Source Comments INFORMATION SOURCE (unrecogn ized section and content) DATE CREATED AUTHOR 01/24/2018 Franchesca wilson DATE CREATED AUTHOR AUTHOR'S ORGANIZ ATION 02/17/[address] [facility] DATE CREATED AUTHOR AUTHOR'S ORGANIZ ATION 04/02/2018 [facility] [place] DATE CREATED AUTHOR AUTHOR'S ORGANIZ ATION 09/08/2018 [facility] DATE CREATED AUTHOR AUTHOR'S ORGANIZ ATION 03/15/2021 [facility] DATE CREATED AUTHOR AUTHOR'S ORGANIZ ATION 06/13/2021 [facility] DATE CREATED AUTHOR AUTHOR'S ORGANIZ ATION 10/14/2023 [facility] DATE CREATED AUTHOR AUTHOR'S ORGANIZ ATION 09/05/2024 [facility] DATE CREATED AUTHOR AUTHOR'S ORGANIZ ATION 09/23/2024 [facility] DATE CREATED AUTHOR AUTHOR'S ORGANIZ ATION 12/12/2024 [facility] DATE CREATED AUTHOR AUTHOR'S ORGANIZ ATION 01/20/2025 [facility] Reason for Visit (unrecogniz ed section and content) Reason Comments Otalgia Reason Comments Drug Overdose Reason Comments Emesis PT REPORTS THAT SHE JUST FOUND OUT BY HOME TEST THAT SHE IS . PT REPORTS THAT SHE HAS BEEN VOMTING AND HER THROAT IS SORE NOW AND IT CONCERNS HER. SHE REPORTS THAT THESE ISSUES HAVE BEEN GOING ON FOR OVER A MONTH Reason Comments Leg Pain Reason Comments substance abuse New patient , nadege manuel Reason Comments IGNACIO F/u FIRST SUBLOCADE #1 Reason Comments Anxiety Multiple complaints. Chills, leg cramps, headache, burning to b/l thighs and RLQ of abdomen, nausea, cough states I feel like I'm dying I've never been this sick in my life. Patient reports onset of symptoms x3 days. Sandy Valderrama Jr., MD - 06/19/2020 7:23 PM Heidi Vega RN - 06/19/2020 7:14 PM Missy Portillo RN - 07/17/2020 11:36 PM Belen Yip MD - 07/17/2020 11:32 PM EST ED Notes (unrecognized secti on and content) ED PROVIDER NOTE [facility] EMERGENCY DEPARTMENT NAME: Cassie Suggs AGE: 29 y.o. : 1990 VISIT DATE: 06/19/2020 CSN: [id number] PCP: Physician No Chief Complaint Patient presents with Otalgia For the past day, the patient has complained of left ear pain and decreased hearing along with no fever no cough and some soreness and fullness in the left side of her neck and throat. He is not having any difficulty breathing or swallowing. Past Medical History: Diagnosis Date Herpes History reviewed. No pertinent surgical history. History reviewed. No pertinent family history. Social History Socioeconomic History Marital status: Single Spouse name: Not on file Number of children: Not on file Years of education: Not on file Highest education level: Not on file Occupational History Not on file Social Needs Financial resource strain: Not on file Food insecurity Worry: Not on file Inability: Not on file Transportation needs Medical: Not on file Non-medical: Not on file Tobacco Use Smoking status: Never Smoker Smokeless tobacco: Never Used Substance and Sexual Activity Alcohol use: No Drug use: No Sexual activity: Not on file Lifestyle Physical activity Days per week: Not on file Minutes per session: Not on file Stress: Not on file Relationships Social connections Talks on phone: Not on file Gets together: Not on file Attends congregation service: Not on file Active member of club or organization: Not on file Attends meetings of clubs or organizations: Not on file Relationship status: Not on file Other Topics Concern Not on file Social History Narrative Not on file Previous Medications Medication Sig [DISCONTINUED] benzoyl peroxide-erythromycin (BENZAMYCIN) gel Apply topically 2 (two) times a day. [DISCONTINUED] cephALEXin (KEFLEX) 500 MG capsule TAKE 1 CAPSULE BY MOUTH EVERY 12 hours for 5 (FIVE) days [DISCONTINUED] FLORASTOR 250 mg capsule Take 250 mg by mouth daily TAKE DAILY FOR 14 DAYS. [DISCONTINUED] ketorolac (TORADOL) 10 mg tablet Take 10 mg by mouth. [DISCONTINUED] lidocaine (XYLOCAINE) 2 % jelly Apply topically 3 (three) times a day as needed To left face for post herpetic neuralgia. [DISCONTINUED] valACYclovir (VALTREX) 1000 MG tablet TAKE 1 TABLET BY MOUTH THREE TIMES DAILY for 7 (SEVEN) days Allergies Allergen Reactions Vancomycin Hives and Itching Review of Systems HENT: Positive for ear pain. All other systems reviewed and are negative. Patient Vitals for the past 24 hrs: BP Temp Temp src Pulse Resp SpO2 Height Weight 06/19/20 1915 129/84 97.7 F (36.5 C) Oral (!) 117 18 98 % 5' 5 68 kg (150 lb) Physical Exam Vitals signs and nursing note reviewed. Constitutional: Appearance: Normal appearance. HENT: Head: Normocephalic and atraumatic. Right Ear: Tympanic membrane, ear canal and external ear normal. Left Ear: External ear normal. Swelling present. There is no impacted cerumen. Tympanic membrane is not bulging. Ears: Comments: The left tympanic membrane is dull. Nose: Nose normal. Mouth/Throat: Mouth: Mucous membranes are moist. Eyes: Extraocular Movements: Extraocular movements intact. Conjunctiva/sclera: Conjunctivae normal. Neck: Musculoskeletal: Normal range of motion. Cardiovascular: Rate and Rhythm: Tachycardia present. Pulmonary: Effort: Pulmonary effort is normal. Abdominal: General: There is no distension. Musculoskeletal: Normal range of motion. Lymphadenopathy: Cervical: No cervical adenopathy. Skin: General: Skin is warm and dry. Neurological: General: No focal deficit present. Mental Status: She is alert and oriented to person, place, and time. Psychiatric: Mood and Affect: Mood normal. Behavior: Behavior normal. Laboratory & Radiographic Imaging (if done): No results found for this visit on 06/19/20. No orders to display Procedures MDM Number of Diagnoses or Management Options Diagnosis management comments: Patient will be given antibiotic eardrops and oral antibiotics and instructed to use acetaminophen and/or ibuprofen as needed for fever or discomfort. She should follow-up with primary care within 48 to 72 hours or return and be reevaluated if there is change worsening or new concern that arises. The patient has been informed that they may have pre-hypertension or hypertension based on a blood pressure reading in the Emergency Department. I recommend that the patient call the primary care provider listed on their discharge instructions or a physician of their choice as soon as possible to arrange follow-up in the next 4 weeks for further evaluation of possible pre-hypertension or hypertension. . Clinical Impression: 1. Left ear pain 2. Left otitis media, unspecified otitis media type 3. Acute otitis externa of left ear, unspecified type ED Disposition None Follow-up Information 1. Nanci Shaffer MD. Specialty: Family Medicine Why: LISE to schedule appointment in 1-[address] [place] [phone] Contact information for after-discharge care Follow-up information has not been specified. New Prescriptions azithromycin (ZITHROMAX) 250 MG tablet Take 2 by mouth today and then 1 by mouth each of the next 4 days . esuhkyrh-xbnadfsxj-xunbzlhhcsgfah (CORTISPORIN) otic solution Administer 3 (three) drops into the left ear 4 (four) times a day for 28 doses . Discontinued Medications Disp Refills Start End benzoyl peroxide-erythromycin (BENZAMYCIN) gel 23.3 g 2 01/31/2018 06/19/2020 Sig: Apply topically 2 (two) times a day. Route: Topical Reason for Discontinue: Error lidocaine (XYLOCAINE) 2 % jelly 30 mL 0 01/31/2018 06/19/2020 Sig: Apply topically 3 (three) times a day as needed To left face for post herpetic neuralgia. Route: Topical Reason for Discontinue: Error cephALEXin (KEFLEX) 500 MG capsule 0 12/19/2017 06/19/2020 Class: Historical Med Reason for Discontinue: Error FLORASTOR 250 mg capsule 0 12/19/2017 06/19/2020 Class: Historical Med Reason for Discontinue: Error ketorolac (TORADOL) 10 mg tablet 12/18/2017 06/19/2020 Class: Historical Med Reason for Discontinue: Error valACYclovir (VALTREX) 1000 MG tablet 0 12/19/2017 06/19/2020 Class: Historical Med Reason for Discontinue: Error Sandy Valderrama Jr., MD 06/19/201928 PT STATES DECREASED HEARING LT EAR AND LT EAR PAIN FOR PAST DAY. STATES RECENT SORE THROAT. documented in this encounter STATES I INJECTED HEROIN TONIGHT, DON'T REMEMBER ANYTHING AFTER. SQUAD STATES 4 OF NARCAN GIVEN NASALLY AND PATIENT WOKE UP AFTER GIVEN. ED PROVIDER NOTE [facility] EMERGENCY DEPARTMENT NAME: Cassie Suggs AGE: 29 y.o. : 1990 VISIT DATE: 07/17/2020 CSN: [id number] PCP: Physician No Chief Complaint Patient presents with Drug Overdose This is a 29-year-old female who presents to the emergency department as an unintentional overdose. Patient tells me that she will injected heroin tonight. It was a little less than usual. She denies intentions of self-harm. When EMS arrived she was not responsive. She was not blue. Gave her 4 mg of Narcan. She was disoriented with EMS, however she is awake alert and oriented and appropriate in the emergency department. Denies nausea or vomiting. Denies any other complaints. Past Medical History: Diagnosis Date Herpes History reviewed. No pertinent surgical history. History reviewed. No pertinent family history. Social History Socioeconomic History Marital status: Single Spouse name: Not on file Number of children: Not on file Years of education: Not on file Highest education level: Not on file Occupational History Not on file Social Needs Financial resource strain: Not on file Food insecurity Worry: Not on file Inability: Not on file Transportation needs Medical: Not on file Non-medical: Not on file Tobacco Use Smoking status: Never Smoker Smokeless tobacco: Never Used Substance and Sexual Activity Alcohol use: Not Currently Comment: SOCIALLY Drug use: Yes Types: Opiates Sexual activity: Not on file Lifestyle Physical activity Days per week: Not on file Minutes per session: Not on file Stress: Not on file Relationships Social connections Talks on phone: Not on file Gets together: Not on file Attends congregation service: Not on file Active member of club or organization: Not on file Attends meetings of clubs or organizations: Not on file Relationship status: Not on file Other Topics Concern Not on file Social History Narrative Not on file Previous Medications Medication Sig azithromycin (ZITHROMAX) 250 MG tablet Take 2 by mouth today and then 1 by mouth each of the next 4 days . Allergies Allergen Reactions Vancomycin Hives and Itching Review of Systems Constitutional: Negative for chills and fever. HENT: Negative for congestion and sore throat. Eyes: Negative for redness and visual disturbance. Respiratory: Negative for cough and shortness of breath. Cardiovascular: Negative for chest pain and leg swelling. Gastrointestinal: Negative for diarrhea, nausea and vomiting. Genitourinary: Negative for dysuria and hematuria. Musculoskeletal: Negative for arthralgias and neck stiffness. Skin: Negative for color change and rash. Neurological: Negative for facial asymmetry and headaches. Psychiatric/Behavioral: Negative for self-injury and suicidal ideas. Patient Vitals for the past 24 hrs: BP Temp Pulse Resp SpO2 Height Weight 07/17/20 2331 110/84 98.3 F (36.8 C) (!) 107 16 100 % 5' 5 68 kg (150 lb) Physical Exam Vitals signs and nursing note reviewed. Constitutional: Appearance: She is well-developed. HENT: Head: Normocephalic and atraumatic. Eyes: Pupils: Pupils are equal, round, and reactive to light. Neck: Musculoskeletal: Normal range of motion and neck supple. Cardiovascular: Rate and Rhythm: Normal rate and regular rhythm. Pulmonary: Effort: Pulmonary effort is normal. No respiratory distress. Breath sounds: Normal breath sounds. Abdominal: General: There is no distension. Palpations: Abdomen is soft. Tenderness: There is no abdominal tenderness. Musculoskeletal: General: No deformity. Skin: General: Skin is warm and dry. Capillary Refill: Capillary refill takes less than 2 seconds. Neurological: Mental Status: She is alert and oriented to person, place, and time. Cranial Nerves: No cranial nerve deficit. Psychiatric: Behavior: Behavior normal. Laboratory & Radiographic Imaging (if done): No results found for this visit on 07/17/20. No orders to display Procedures MDM Number of Diagnoses or Management Options Diagnosis management comments: Patient presents to the emergency department as a heroin overdose. She is awake alert and appropriate. We will have an observation period to make sure she does not rebound after the Narcan. The patient has been informed that they may have pre-hypertension or hypertension based on a blood pressure reading in the Emergency Department. I recommend that the patient call the primary care provider listed on their discharge instructions or a physician of their choice as soon as possible to arrange follow-up in the next 4 weeks for further evaluation of possible pre-hypertension or hypertension. . Clinical Impression: 1. Accidental overdose of heroin, initial encounter ([facility]) ED Disposition None Follow-up Information 1. Please follow up. See your doctor this week Contact information for after-discharge care Follow-up information has not been specified. Belen Rodas MD 07/17/20 7941 documented in this encounter Discharge instructions reviewed. IV fluids still infusing at this time. Pt provided with a snack bar, crackers and some gatorade per ok of Dr Gaming Dr Gaming present at bedside to discuss test results with pt and plan of treatment jeanette Harper, present at bedside in appropriate PPE for imaging. Pt IV site is infusing well, no S&S of complications noted. Pt lying on cart, side rails up x2 for safety. Pt has been advised that labs take up to 45 minutes for results to be available for physician to review. Call light in reach, warm blanket for comfort provided. HOB adjusted for comfort. Pt has requested for her visitor to be allowed back at this time but she has been advised that he left several minutes after her arrival. PCP - Cheryl Patel, NEIGHBORHOOD CONSERVATION OFFICER Chief Complaint Patient presents with Emesis PT REPORTS THAT SHE JUST FOUND OUT BY HOME TEST THAT SHE IS . PT REPORTS THAT SHE HAS BEEN VOMTING AND HER THROAT IS SORE NOW AND IT CONCERNS HER. SHE REPORTS THAT THESE ISSUES HAVE BEEN GOING ON FOR OVER A MONTH HPI, MDM, & ED COURSE There is a 30-year-old G6, P2 female at about 10 weeks by dates with positive home test 1 week ago presenting for chief complaint of nausea and vomiting. Last was in 2012. She notes history of 3 elective abortions and 2 uncomplicated vaginal deliveries. She states that her last normal menstrual period was in mid August, and in September she had an extremely light menses and no menstrual cycle and October prompting her to take a home test 1 week ago which was positive. She notes that for the last week she has been suffering from nonbloody, nonbilious emesis. She states that symptoms have come on gradually and were intermittent, but have become constant. Symptoms are worse with attempted eating and drinking and patient feels like she cannot keep anything down. She denies any abdominal pain, diarrhea or constipation, or urinary symptoms. No abnormal vaginal bleeding or discharge. No fever, dizziness, chest pain, difficulty in breathing. She notes that she has been suffering from sore throat and cough for the last month or so and that the vomiting is making the sore throat worse. She had taken a Covid test couple weeks ago which was negative. No treatment prior to arrival. Patient states that she plans to go to women's care in [place] for CONTROL SYSTEMS DEVELOPER care, but has not established there yet for this . Patient's home medication list includes Topamax, trazodone, clonidine, and baclofen. She states she is not on any of these medications. CBC and CMP were benign. UA shows bacteriuria. Urine test is positive. Chest x-ray is benign. Patient is feeling much better after Reglan and Benadryl and is now eating crackers and drinking Gatorade. She has soft nontender abdomen on recheck. We discussed her substance use disorder as well and she notes that she would like to go to detox in [place], but is also considering Suboxone treatment at this time. I encouraged her to work with her primary care physician and CONTROL SYSTEMS DEVELOPER team to get a safe plan getting off of drugs. I encouraged her to return if worsening at any time. Patient discharged in improved condition. IMPRESSION 1. Nausea and vomiting in 2. Cough 3. Substance use disorder 4. Bacteriuria during Review of Systems All systems reviewed and negative except as mentioned in HPI or as noted below: Constitutional: Unintended weight loss NO Eyes: Eye Drainage NO ENT: New hearing loss NO Respiratory: Apnea spells NO CV: Lower extremity edema NO GI: Abdominal distension NO : Urinary Retention NO Heme: Unexplained bruising NO Endocrine: Heat intolerance NO Neuro: New tremor NO Past Medical History Past Medical History: Diagnosis Date Hepatitis C Herpes HPV in female Past Surgical History Past Surgical History: Procedure Laterality Date CERVICAL CONIZATION LOOP ELECTROSURGICAL EXCISION PROCEDURE Family History History reviewed. No pertinent family history. Social History Social History Tobacco Use Smoking status: Never Smoker Smokeless tobacco: Never Used Substance Use Topics Alcohol use: Not Currently Comment: SOCIALLY Drug use: Yes Types: Opiates Comment: PT REPORTS HEROIN USAGE TODAY Allergies Allergies Allergen Reactions Vancomycin Hives and Itching Medications Cassie Suggs Home Medication Instructions Prior to Surgery SHERRIE:[id number] Printed on:11/05/20 2642 Medication Information Take last dose on Take the morning of surgery Comment(s) baclofen (LIORESAL) 10 MG tablet Take 20 mg TID X 7 doses then 10 mg TID X 6 doses . cloNIDine HCL (CATAPRES) 0.1 MG tablet Take 1 (one) tablet (0.1 mg total) by mouth 2 (two) times a day for 10 days . metoclopramide (REGLAN) 5 MG tablet Take 1 (one) tablet (5 mg total) by mouth 3 (three) times a day as needed (Nausea) . nitrofurantoin, macrocrystal-monohydrate, (MACROBID) 100 MG capsule Take 1 (one) capsule (100 mg total) by mouth 2 (two) times a day for 7 days . pnv [id number] 35 mg (d)/5 mg 12 mcg-600 unit TbSQ Take 30 tablets by mouth daily . topiramate (TOPAMAX) 25 MG tablet Take 1 (one) tablet (25 mg total) by mouth 2 (two) times a day for 15 days . traZODone (DESYREL) 50 MG tablet Take 1 (one) tablet (50 mg total) by mouth nightly as needed for sleep . Physical Exam Initial Vital Signs BP 103/71 (BP Location: Right arm, Patient Position: Sitting) Pulse (!) 101 Temp 97.4 F (36.3 C) (Temporal) Resp 18 Ht 5' 5 Wt 70.3 kg (155 lb) LMP 08/23/2020 (Approximate) SpO2 100% BMI 25.79 kg/m Vital Signs During ED Visit (as charted by nursing) Patient Vitals for the past 24 hrs: BP Temp Temp src Pulse Resp SpO2 Height Weight 11/05/20 0118 103/71 97.4 F (36.3 C) Temporal (!) 101 18 100 % 5' 5 70.3 kg (155 lb) Physical Exam Vitals signs and nursing note reviewed. Constitutional: General: She is not in acute distress. Appearance: She is well-developed. HENT: Head: Normocephalic and atraumatic. Mouth/Throat: Comments: There is mild postnasal drip without any exudates, peritonsillar swelling, uvula edema or trismus. No submandibular swelling. Eyes: Extraocular Movements: Extraocular movements intact. Pupils: Pupils are equal, round, and reactive to light. Neck: Musculoskeletal: Normal range of motion and neck supple. Comments: No cervical lymphadenopathy. Cardiovascular: Rate and Rhythm: Normal rate and regular rhythm. Pulmonary: Comments: Mild and expiratory wheezing bilaterally with occasional scattered rhonchi. Abdominal: Comments: Abdominal exam is benign. There is no tenderness, distention, guarding, or rigidity. No CVA tenderness. Bowel sounds are normal. Musculoskeletal: Normal range of motion. General: No deformity. Comments: No pedal edema or calf tenderness bilaterally Skin: General: Skin is warm and dry. Neurological: General: No focal deficit present. Mental Status: She is alert and oriented to person, place, and time. Psychiatric: Mood and Affect: Mood normal. Behavior: Behavior normal. Labs Reviewed BASIC METABOLIC PANEL - Abnormal; Notable for the following components: Result Value Sodium 134 (*) Glucose 103 (*) All other components within normal limits Narrative: The eGFR should be used for monitoring renal function only and not for medication dosing. HCG URINE, QUALITATIVE - Abnormal; Notable for the following components: Beta-hCG, Ur, Qual Positive (*) All other components within normal limits LIPASE - Abnormal; Notable for the following components: Lipase 51 (*) All other components within normal limits URINALYSIS - Abnormal; Notable for the following components: Clarity, Urine Cloudy (*) Specific Baird >=1.030 (*) Protein, Urine 30 (*) Bilirubin, Urine Positive (*) WBCs, Urine 30 (*) Bacteria, Urine Many (*) All other components within normal limits Narrative: Microscopic examination is performed on all urinalysis samples and only positive findings are reported. The test for blood on the chemical analytic portion of urinalysis may also be positive due to hemoglobinuria and myoglobinuria and if red blood cells are present they are quantified by microscopic examination. CBC WITH AUTO DIFFERENTIAL - Abnormal; Notable for the following components: WBC 13.29 (*) MPV 8.7 (*) Neutrophils Abs 11.39 (*) All other components within normal limits HEPATIC FUNCTION PANEL - Normal URINE AEROBIC CULTURE CBC AND DIFFERENTIAL Narrative: The following orders were created for panel order CBC w/ Diff. Procedure Abnormality Status --------- ------ CBC Auto Differential[[id number]] Abnormal Final result Please view results for these tests on the individual orders. Radiographic Imaging (if any) During ED Visit XR Chest 1 View Non-public Result 1. No acute cardiopulmonary abnormality. Workstation ID: [id number] Medications Ordered/Given During ED Visit Medications lactated ringers bolus 1,000 mL (1,000 mL Intravenous New Bag 11/05/20152) metoclopramide (REGLAN) injection 5 mg (5 mg Intravenous Given 11/05/20152) diphenhydrAMINE (BENADRYL) injection 25 mg (25 mg Intravenous Given 11/05/20152) Procedures Agustin Gaming, DO 11/05/20247 Agustin Gaming, DO 11/05/20248 Dr Gaming present at bedside for assessment. Pt hygiene condition is poor at this time. Pt has soiled clothing on from vomitus earlier and appears to be disheveled. Pt thought process appears impaired by substance. Pt has new needle campos in her right arm as visible from VS. Pt reports that she has been vomiting and has a sore throat for over a month now. She advised that she has been tested for COVID but had negative results, some time in the last 3 weeks. Pt reports that the sore throat is causing her concern because it has been so long. Pt and sig other walked up her tonight because she reports that she can't keep water down even. Pt reports that she is but has no idea when her last period is and has not seen an OBGYN to this point. Pt reports last heroin usage today. Pt asks to use the restroom, provided with specimen cup incase specimen is needed. Call light in reach Pt arrive to triage window with very rapid and erratic speech patterns. Pt reports that she is vomiting and has a sore throat for over a month. She reports that she is but not sure how far along she is at this point, no OBGYN visit has been completed at this time. Pt provided with a mask and placed into room 1 for assessment. Special isolation precautions are in place with signage outside this patient's room. This nanny caregiver performs hand hygiene and enters the patient room wearing: ? gloves ? an appropriately fitting (N-95, PAPR, Aura) mask ? face shield ? protective gown to provide care. See documentation for the care provided.Nursing to bedside for assessment documented in this encounter Scheduled Active and Recently Administ ered Medications (unrecognized section and content) Medication Order 03/11/2021 03/12/2021 03/13/2021 0.9 % sodium chloride bolus 1,000 mL, Intravenous, at 1,000 mL/hr, Administer over 1 Hours, ONCE, On 03/13/21 at 1415, For 1 dose 1415 (Due) Scheduled Medication Order 08/31/2024 09/01/2024 09/02/2024 iohexol (OMNIPAQUE) 350 MG/ML injection 75 mL (COMPLETED) 75 mL, Intravenous, ONCE, 1 dose, On 09/02/24 at 0330, Extravasation Risk, Radiology Procedure 0321 (Given - Radiol ogy - Provider: Ivelisse De La Cruz) Ketorolac (TORADOL) injection 30 mg (COMPLETED) 30 mg, Intravenous, ONCE, 1 dose, On Mon09/02/24 at 0030 0119 (Given - Provid er: Emily Zamora RN) Sodium chloride 0.9% IV solution 1,000 mL (COMPLETED) 1,000 mL, Intravenous, ONCE, 1 dose, On Mon09/02/24 at 0030 0119 ($$New Bag$$ - Provider: Emliy Zamora RN)0301 (Stopped - Provider: mEily Zamora RN) Sodium chloride 0.9% IV solution 75 mL (COMPLETED) 75 mL, Intravenous, ONCE, 1 dose, On Mon09/02/24 at 0330, Radiology Procedure 0321 ($$New Bag$$ - Provider: Ivelisse De La Cruz)0444 (Stopped - Provider: Emily Zamora RN) Care Teams (unrecognized sec tion and content) Stem Roller Or Crusher Operator Relationship Specialty Start Date End Date PatelCheryl, NEIGHBORHOOD CONSERVATION OFFICER [address] [place] [address] PCP - General Family Medicine 09/25/20 Luisa Arriaza, NEIGHBORHOOD CONSERVATION OFFICER [address] [place] [address] Nurse Practitioner Obstetrics/Gynecology 03/17/21 Sandy Ferrera MD [address] [place] [address] Teacher Physically Impaired Obstetrics/Gynecology 03/17/21 Shavon Olsen MD [address] [place] [address] Teacher Physically Impaired Obstetrics/Gynecology 03/17/21 Ivelisse Salamanca MD [address] [place] [address] Teacher Physically Impaired Obstetrics/Gynecology 03/17/21 Francia Shruthidalia Reyes CNM [address] [place] [address] Reel Operator Obstetrics/Gynecology 03/17/21 Yogi Thompson MD [address] [place] [address] Consulting Physician Addiction Medicine 04/30/21 Stem Roller Or Crusher Operator Relationship Specialty Start Date End Date Archana Leo, NEIGHBORHOOD CONSERVATION OFFICER [address] [facility] [place] [address] PCP - General Nurse Practitioner 05/31/22 Luisa Zimmerman, SOLANGE [address] [place] [address] Nurse Practitioner Obstetrics/Gynecology 03/17/21 Shavon Olsen MD [address] [place] [address] Teacher Physically Impaired Obstetrics/Gynecology 03/17/21 Ivelisse Salamanca MD [address] [place] [address] Teacher Physically Impaired Obstetrics/Gynecology 03/17/21 Shruthi Feldman CN [address] [place] [address] Reel Operator Obstetrics/Gynecology 03/17/21 Yogi Thompson MD [address] [facility] [place] [address] Consulting Physician Addiction Medicine 04/30/21 Stem Roller Or Crusher Operator Relationship Specialty Start Date End Date Kareen Salgado CNP [address] [place] [address] [place] [address] PCP - General Nurse Practitioner 08/20/23 Luisa Zimmerman, SOLANGE [address] [place] [address] Nurse Practitioner Obstetrics/Gynecology 03/17/21 Shavon Olsen MD [address] [place] [address] Teacher Physically Impaired Obstetrics/Gynecology 03/17/21 Ivelisse Wallace MD [address] [place] [address] Teacher Physically Impaired Obstetrics/Gynecology 03/17/21 Shruthi Feldman CNM [address] [place] [address] Reel Operator Obstetrics/Gynecology 03/17/21 Yogi Thompson MD [address] [place] [address] Consulting Physician Addiction Medicine 04/30/21 Stem Roller Or Crusher Operator Relationship Specialty Start Date End Date Kareen Salgado CNP [address] [place] [address] PCP - General Nurse Practitioner 08/20/23 Luisa Zimmerman, SOLANGE [address] [place] [address] Nurse Practitioner Obstetrics/Gynecology 03/17/21 Shavon Olsen MD [address] [place] [address] Teacher Physically Impaired Obstetrics/Gynecology 03/17/21 Ivelisse Wallace MD [address] [place] [address] Teacher Physically Impaired Obstetrics/Gynecology 03/17/21 Shrtuhi Feldman CNM [address] [place] [address] Reel Operator Obstetrics/Gynecology 03/17/21 Yogi Thompson MD [address] [place] [address] Consulting Physician Addiction Medicine 04/30/21 Stem Roller Or Crusher Operator Relationship Specialty Start Date End Date Kareen Salgado CNP [address] [place] [address] PCP - General Nurse Practitioner 08/20/23 Luisa Zimmerman CNP [address] [place] [address] Nurse Practitioner Obstetrics/Gynecology 03/17/21 Shavon Olsen MD [address] [place] [address] Teacher Physically Impaired Obstetrics/Gynecology 03/17/21 Ivelisse Wallace MD [address] [place] [address] Teacher Physically Impaired Obstetrics/Gynecology 03/17/21 Shruthi Feldman CNM [address] [place] [address] Reel Operator Obstetrics/Gynecology 03/17/21 Yogi Thompson MD [facility] [place] [address] Consulting Physician Addiction Medicine 04/30/21 Stem Roller Or Crusher Operator Relationship Specialty Start Date End Date [facility], Other [address] [place] [address] [place] [address] PCP - General Family Medicine 09/02/24 FOR RECORDS PERTAINING TO PATIENTS WHO ARE OR HAVE BEEN ENROLLED IN A CHEMICAL DEPENDENCY/SUBSTANCEABUSE PROGRAM, SOME INFORMATION MAY BE OMITTED. This clinical summary was aggregated from multiple sources. Caution should be exercised in using it in the provision of clinical care. This summary normalizes information from multiple sources, and as a consequence, information in this document may materially change the coding, format and clinical context of patient data. In addition, data may be omitted in some cases. CLINICAL DECISIONS SHOULD BE BASED ON THE PRIMARY CLINICAL RECORDS. [employer] [facility]. provides no warranty or guarantee of the accuracy or completeness of information in this document.
[2025-07-05 21:07] LABS: Barbiturate Urine NEGATIVE (< 200 ng/mL); Benzodiazepine Urine NEGATIVE (< 200 ng/mL); PCP Urine NEGATIVE (< 25 ng/mL); THC Urine NEGATIVE (< 50 ng/mL)
[2025-07-05 21:57] LABS: HIV Nonreactive (Nonreactive); Hepatitis B Surface Antigen Nonreactive (Nonreactive); Hepatitis C Antibody REAC (Nonreactive); Syphilis Antibodies Nonreactive (Nonreactive)
[2025-07-06 00:46] VITALS: BP 109/76; PULSE 88; RESP 18; TEMP 36.7; O2SAT 98
[2025-07-06 04:40] VITALS: BP 100/82; PULSE 79; RESP 18; TEMP 36.8; O2SAT 97
--- NOTE | 2025-07-06 07:14 | PCM.PN.HOSP ---
Reason for Visit Chief Complaint: Acute Opiate Withdrawal Subjective Subjective Patient is a 34-year-old lady with history of polysubstance dependence admitted with acute opioid withdrawal Objective Data Objective Data Vital Signs: Vital Signs Temp Pulse Resp BP Pulse Ox O2 Del Method 98.2 F 79 18 100/82 H 97 Room Air 07/06/25 04:40 07/06/25 04:40 07/06/25 04:40 07/06/25 04:40 07/06/25 04:40 07/06/25 04:40 Oxygen Delivery Method Room Air Weight: 75.3 kg Body Mass Index (BMI) 2.5 Intake & Output: Intake and Output for Last 24 Hours 07/04/25 07/05/25 07/06/25 23:59 23:59 23:59 Intake Total 120 / 120 Balance 120 / 120 Lab / Micro Data 07/05/25 19:18 07/05/25 19:18 Labs: Laboratory Results - last 24 hr 07/05/25 19:18: WBC 9.4, RBC 4.96, Hgb 14.5, Hct 43.6, MCV 87.9, MCH 29.2, MCHC 33.3, RDW Std Deviation 42.9, RDW Coeff of Jess 13.4, Plt Count 394, MPV 8.7, Immature Gran % (Auto) 0.300, Neut % (Auto) 75.0 H, Lymph % (Auto) 19.3, [place] % (Auto) 5.1, Eos % (Auto) 0.2, Baso % (Auto) 0.1, Absolute Neuts (auto) 7.1, Absolute Lymphs (auto) 1.82, Nucleated RBC % 0, Sodium 140, Potassium 3.7, Chloride 103, Carbon Dioxide 25.2, Anion Gap 12, BUN 13, Creatinine 0.67 L, Estim Creat Clear Calc 120.07, Est GFR (MDRD) Non-Af 117, BUN/Creatinine Ratio 18.9, Glucose 104 H, Calcium 9.8, Total Bilirubin 0.56, AST 17, ALT 17, Alkaline Phosphatase 90, Total Protein 8.6 H, Albumin 4.9, Globulin 3.7, Albumin/Globulin Ratio 1.3, Serum , Qual NEGATIVE, Ethyl Alcohol < 10.1, Syphilis Total Ab Nonreactive, Hep Bs Antigen Nonreactive, Hep Bs Antibody Nonreactive, Hepatitis C Antibody REAC, HIV 1&2 Antibody Nonreactive 07/05/25 20:17: Urine Opiates Screen NEGATIVE, U Buprenorphine Qual NEGATIVE, Ur Oxycodone Screen NEGATIVE, Urine Methadone Screen NEGATIVE, Urine Fentanyl Screen PRESUMPTIVE POSITIVE, Ur Barbiturates Screen NEGATIVE, Ur Phencyclidine Scrn NEGATIVE, Ur Amphetamines Screen PRESUMPTIVE POSITIVE, U Benzodiazepines Scrn NEGATIVE, Urine Cocaine Screen NEGATIVE, U Cannabinoids Screen NEGATIVE Physical Exam Narrative GENERAL: cooperative HEENT: Atraumatic; normocephalic EYES; Anicteric, Normal Conjunctiva NECK; supple, normal thyroid, RESPIRATORY: Diminished to auscultation CARDIOVASCULAR: Regular S1 S2, GI: soft, normoactive bowel sounds, : No Renal angle tenderness; EXTREMITIES: No edema, no clubbing, MUSCULOSKELETAL: no muscle wasting NEURO: Awake; no lateralizing signs. SKIN: No Rash PSYCH; Flat affect Assessment & Plan Assessment/Plan (1) Opiate withdrawal: PLAN: Plan Patient is a 34-year-old lady with history of chronic opiate dependence admitted with acute opioid withdrawal 1. 1. Acute opioid withdrawal - Patient has been admitted to regular nursing floor, managed buprenorphine taper along with other adjunctive medications for medical stabilization 2. Chronic hep C ? Patient to follow-up with PCP for subsequent care. Apparently did receive treatment for hep C 3. Polysubstance dependence counseled on cessation 4. Tobacco dependence ? Counseled on cessation, offered nicotine patch for tobacco cravings 5. Depression and anxiety ? Currently not being treated plans for patient to follow-up with primary care physician for subsequent treatment 6. DVT prophylaxis ? Low risk encourage early ambulation Time spent in the patient's overall evaluation,decision-making process, review of diagnostic data, adjustment of management, discussion with other providers, nursing nursing and ancillary staff involved in patient's care documentation, 38 Minutes Charges/Coding Visit Charges Inpatient E&M: 40317 Subs Hosp L2
[2025-07-06 07:22] VITALS: O2SAT 98
--- NOTE | 2025-07-06 10:17 | NURSING ---
Woke pt up to assess and take vitals- pt replies can you just come back and take vitals later I'm really not feeling good right now states her legs are painful- offered prns- pt was not interested. Will reassess later.
--- NOTE | 2025-07-06 12:51 | NURSING ---
Made attempt to get VS and assess pt at this time to which she again replied you can come back later I don't feel good right now... my legs are killing me - offered prn meds motrin, methocarbamol, gabapentin- all were refused stating I had those last night they don't do shit. Pt then placed covers over her head and rolled over. Will continue to monitor.
[2025-07-06 13:52] VITALS: BP 119/76; PULSE 91; RESP 16; TEMP 36.9; O2SAT 99
[2025-07-06] MEDS: hydrOXYzine PAM 25 MG Capsule 50 MG PO ×2 (13:56→20:31)
--- NOTE | 2025-07-06 16:54 | ADDICTION ---
Pt was met with to complete the RAMP assessments, DUDIT, AUDIT, ASAM, MSE, and DC Plan. Pt presented as agitated and unwilling to engage in more than bare minimum conversation. Pt was not willing to explore tx options or her DC plan at this time. Pt stated I don't want to talk about this, I don't feel good, I'm going to vomit, please get out of my room. Pt was encouraged to consider tx options and RAMP coordinator Suzy was informed that a f/u is needed on Monday.
[2025-07-06 20:13] VITALS: BP 108/76; PULSE 84; RESP 16; TEMP 36.7; O2SAT 100
[2025-07-07 00:38] VITALS: BP 101/65; PULSE 74; RESP 16; TEMP 37.1; O2SAT 98
--- NOTE | 2025-07-07 06:15 | NURSING ---
Attempted to get patients vitals and give Buprenorphine. Patient replied, I can't have you do that shit right now. Informed patient that she will not be able to get the medication until later in the day. Patient says, That's fine I just don't want to be woken up right now.
--- NOTE | 2025-07-07 07:26 | PCM.PN.HOSP ---
Reason for Visit Chief Complaint: Acute Opiate Withdrawal Subjective Subjective Patient seen complains of having significant pain in both legs. Objective Data Objective Data Vital Signs: Vital Signs Temp Pulse Resp BP Pulse Ox O2 Del Method 98.7 F 74 16 101/65 98 Room Air 07/07/25 00:38 07/07/25 00:38 07/07/25 00:38 07/07/25 00:38 07/07/25 00:38 07/07/25 00:38 Oxygen Delivery Method Room Air Weight: 75.3 kg Body Mass Index (BMI) 2.5 Intake & Output: Intake and Output for Last 24 Hours 07/05/25 07/06/25 07/07/25 23:59 23:59 23:59 Intake Total 120 / 120 Balance 120 / 120 Lab / Micro Data 07/05/25 19:18 07/05/25 19:18 Physical Exam Narrative GENERAL: cooperative HEENT: Atraumatic; normocephalic EYES; Anicteric, Normal Conjunctiva NECK; supple, normal thyroid, RESPIRATORY: Diminished to auscultation CARDIOVASCULAR: Regular S1 S2, GI: soft, normoactive bowel sounds, : No Renal angle tenderness; EXTREMITIES: No edema, no clubbing, MUSCULOSKELETAL: no muscle wasting NEURO: Awake; no lateralizing signs. SKIN: No Rash PSYCH; Flat affect Assessment & Plan Assessment/Plan (1) Opiate withdrawal: PLAN: Plan Patient is a 34-year-old lady with history of chronic opiate dependence admitted with acute opioid withdrawal 1. 1. Acute opioid withdrawal - Patient has been admitted to regular nursing floor, managed buprenorphine taper along with other adjunctive medications for medical stabilization ? 11 07/07/2025; patient still has significant symptoms with significant leg cramps. Patient had requested for BuSpar however was explained to her the importance of sticking to the regimen. 2. Chronic hep C ? Patient to follow-up with PCP for subsequent care. Apparently did receive treatment for hep C 3. Polysubstance dependence counseled on cessation 4. Tobacco dependence ? Counseled on cessation, offered nicotine patch for tobacco cravings 5. Depression and anxiety ? Currently not being treated plans for patient to follow-up with primary care physician for subsequent treatment 6. DVT prophylaxis ? Low risk encourage early ambulation Time spent in the patient's overall evaluation,decision-making process, review of diagnostic data, adjustment of management, discussion with other providers, nursing nursing and ancillary staff involved in patient's care documentation, 35 Minutes Charges/Coding Visit Charges Inpatient E&M: 82579 Subs Hosp L2
[2025-07-07 08:29] VITALS: BP 118/71; PULSE 82; RESP 13; TEMP 36.8; O2SAT 100
[2025-07-07] MEDS: hydrOXYzine PAM 25 MG Capsule 50 MG PO ×2 (08:34→21:46)
[2025-07-07 14:00] VITALS: BP 91/67; PULSE 93; RESP 15; TEMP 37; O2SAT 100
--- NOTE | 2025-07-07 14:40 | NURSING ---
SPOKE W/DERIK FROM ADDICTION MEDICINE, SHE IS NOW AWARE PT IS INTERESTED IN POSSIBLY GOING INPATIENT. THIS NURSE WILL LET PT KNOW THAT DERIK WILL SEE HER IN THE AM TO SET HER UP
[2025-07-07 21:37] VITALS: BP 105/69; PULSE 88; RESP 16; TEMP 36.9; O2SAT 100
[2025-07-08 01:59] VITALS: BP 100/62; PULSE 72; RESP 18; TEMP 36.8; O2SAT 99
[2025-07-08 06:32] VITALS: BP 104/73; PULSE 86; RESP 16; TEMP 36.8; O2SAT 99
--- NOTE | 2025-07-08 08:32 | PCM.PN.HOSP ---
Reason for Visit Chief Complaint: Acute Opiate Withdrawal Subjective Subjective Patient seen much more cooperative this a.m. Plan is for patient to be discharged this morning after assessment by addiction medicine service Objective Data Objective Data Vital Signs: Vital Signs Temp Pulse Resp BP Pulse Ox O2 Del Method 98.2 F 86 16 104/73 99 Room Air 07/08/25 06:32 07/08/25 06:32 07/08/25 06:32 07/08/25 06:32 07/08/25 06:32 07/08/25 06:32 Oxygen Delivery Method Room Air Weight: 75.3 kg Body Mass Index (BMI) 2.5 Intake & Output: Intake and Output for Last 24 Hours 07/06/25 07/07/25 07/08/25 23:59 23:59 23:59 Intake Total 120 / 120 Balance 120 / 120 Lab / Micro Data 07/05/25 19:18 07/05/25 19:18 Physical Exam Narrative GENERAL: cooperative HEENT: Atraumatic; normocephalic EYES; Anicteric, Normal Conjunctiva NECK; supple, normal thyroid, RESPIRATORY: Diminished to auscultation CARDIOVASCULAR: Regular S1 S2, GI: soft, normoactive bowel sounds, : No Renal angle tenderness; EXTREMITIES: No edema, no clubbing, MUSCULOSKELETAL: no muscle wasting NEURO: Awake; no lateralizing signs. SKIN: No Rash PSYCH; Flat affect Assessment & Plan Assessment/Plan (1) Opiate withdrawal: PLAN: Plan Patient is a 34-year-old lady with history of chronic opiate dependence admitted with acute opioid withdrawal 1. 1. Acute opioid withdrawal - Patient has been admitted to regular nursing floor, managed buprenorphine taper along with other adjunctive medications for medical stabilization ? 07/07/2025; patient still has significant symptoms with significant leg cramps. Patient had requested for BuSpar however was explained to her the importance of sticking to the regimen. ? 07/08/2025; patient to be discharged following evaluation by addiction medicine service 2. Chronic hep C ? Patient to follow-up with PCP for subsequent care. Apparently did receive treatment for hep C 3. Polysubstance dependence counseled on cessation 4. Tobacco dependence ? Counseled on cessation, offered nicotine patch for tobacco cravings 5. Depression and anxiety ? Currently not being treated plans for patient to follow-up with primary care physician for subsequent treatment 6. DVT prophylaxis ? Low risk encourage early ambulation Time spent in the patient's overall evaluation,decision-making process, review of diagnostic data, adjustment of management, discussion with other providers, nursing nursing and ancillary staff involved in patient's care documentation, 35 Minutes Charges/Coding Visit Charges Inpatient E&M: 26734 Subs Hosp L2
[2025-07-08 09:26] VITALS: O2SAT 98
--- NOTE | 2025-07-08 09:31 | PCM.DC.SUM ---
Providers Date of Admission: 07/05/25 Date of Discharge: 07/08/25 Primary Care Physician: No Primary Care Phys Reason For Visit: ACUTE OPIATE WITHDRAWL Diagnosis Discharge Diagnosis (1) Opiate withdrawal: Status: Acute Code(s): F11.93 - Opioid use, unspecified with withdrawal Plan Patient is a 34-year-old lady with history of chronic opiate dependence admitted with acute opioid withdrawal 1. 1. Acute opioid withdrawal - Patient has been admitted to regular nursing floor, managed buprenorphine taper along with other adjunctive medications for medical stabilization ? 07/07/2025; patient still has significant symptoms with significant leg cramps. Patient had requested for BuSpar however was explained to her the importance of sticking to the regimen. ? 07/08/2025; patient to be discharged following evaluation by addiction medicine service 2. Chronic hep C ? Patient to follow-up with PCP for subsequent care. Apparently did receive treatment for hep C 3. Polysubstance dependence counseled on cessation 4. Tobacco dependence ? Counseled on cessation, offered nicotine patch for tobacco cravings 5. Depression and anxiety ? Currently not being treated plans for patient to follow-up with primary care physician for subsequent treatment 6. DVT prophylaxis ? Low risk encourage early ambulation Time spent in the patient's overall evaluation,decision-making process, review of diagnostic data, adjustment of management, discussion with other providers, nursing nursing and ancillary staff involved in patient's care documentation, 35 Minutes Medications at Discharge Home Medications NK 07/05/25 Physical Exam Narrative GENERAL: cooperative HEENT: Atraumatic; normocephalic EYES; Anicteric, Normal Conjunctiva NECK; supple, normal thyroid, RESPIRATORY: Diminished to auscultation CARDIOVASCULAR: Regular S1 S2, GI: soft, normoactive bowel sounds, : No Renal angle tenderness; EXTREMITIES: No edema, no clubbing, MUSCULOSKELETAL: no muscle wasting NEURO: Awake; no lateralizing signs. SKIN: No Rash PSYCH; Flat affect Weight / BMI Weight Weight: 75.3 kg Body Mass Index (BMI) 2.5 ABG / Lab / Microbiology Data 07/05/25 19:18 07/05/25 19:18 D/C Instructions Discharge Activity: Return to Normal Activity Call your doctor if you observe: Fever of 101 or Higher, Shortness of breath, Fainting spells and Chest pain DC O2, CPAP, BIPAP Needs Home O2 Discharge instructions: No Meaningful Use Info Meaningful Use Meaningful Use Diagnoses (Choose all that apply): None applicable Discharge Plan Admission Admit Date/Time: 07/05/25 19:30 Attending Provider: Maik Dan Primary Care Provider: Care Physician,No Primary Consulting Providers: Kiki Meeks Discharge Orders/Prescriptions Prescriptions: Continued NK Referrals / Follow Up: Care Physician,No Primary [Primary Care Provider, Medical] Disposition Disposition (needs filled in before D/C Order can be placed): Home, Self Care Charges/Coding Visit Charges Inpatient E&M: 66306 Disch Hosp >30min
--- NOTE | 2025-07-08 11:20 | CASEMGMT ---
Social Work- Sw met with pt to complete SDOH assessment. SW called security to jump pt vehicle and provided local agencies for gas vouchers, as pt reports that she needs gas to go get clothes for inpatient rehab stay. SW provided [facility] community resources. Pt reports no other needs at this time. NGHIA Edmond
== END 2025-07-08 11:51 | disposition home or self-care (01) | DRG 773 ==
LOC: ED 19:46 → MS3 20:02
PROVIDERS: Admitting Provider Family Medicine; Emergency Provider Emergency Medicine; Visit Provider Internal Medicine
DX: F11.23 Opioid dependence with withdrawal (principal); B18.2 Chronic viral hepatitis C; F15.10 Other stimulant abuse, uncomplicated; F17.210 Nicotine dependence, cigarettes, uncomplicated
CPT/HCPCS: 80053; 80307; 82077; 84703; 85025; 86703; 86706; 86780; 86803; 87340; 99283; 99406